=== PATIENT | female | born 1985 | race Caucasian/White ===

== ENCOUNTER 2024-10-11 00:51 | Day surgery (SDC) | payer OTHER, SELFPAY ==
[2024-10-10 11:55] VITALS: BMI 54.0
--- NOTE | 2024-10-10 12:08 | PC.NURSE ---
Report to the Outpatient Waiting Room, entrance under the green pavilion located off [facility], at time _1030_ on date _[id number]_. Planned Procedure Time: _1230_.? Time changes happen often and if your time is changed the preop area will call you the afternoon before. - You and your visitor will be asked to self-screen and do not enter if you have any COVID symptoms. Please call surgeon if you need to reschedule. - A mask is optional within the hospital at this time. Patients may have clear liquids (water, carbonated beverages, clear teas, apple juice) until 3 hours prior to surgery with a maximum of 20 ounces. - No food from midnight until time of surgery and no smoking, or chewing tobacco (or any form of nicotine). No chewing gum, candy or mints. Take only the following medications with a SIP of water on the morning of surgery: ___Levothyroxine, BC pill and Wixela. May also use nausea med, rescue inhaler and or pain pill.___ DO NOT STOP ANY OF YOUR OTHER PRESCRIPTION MEDICATIONS PRIOR TO SURGERY EXCEPT THE FOLLOWING Hold all vitamins and supplements for 3 days per anesthesiologist. Medications to discontinue per physician Date to take last dose Please no make-up, nail armenian, hairspray, perfume, deodorant, or body powder the day of surgery.? No jewelry (including any body piercings) or valuables the day of surgery, leave them at home.? Please take a shower or bath the night before, or the morning of, surgery with an antibacterial soap.? Wear comfortable, loose fitting clothing.? - Jewelry must be removed prior to entering the operating room.? Rings and piercings that are not removed may be cut off. - The hospital will not accept responsibility for valuables.? - Please leave all valuables, including medications, at home the day of surgery. If you are going home after surgery, a licensed miniature train driver must drive you home.? - NO public transportation without another adult if you receive anesthesia. - We recommend that an adult stay with you for 24 hours following discharge. - We also recommend that you do not drive, make important decision, drink alcoholic beverages, or take any drugs that were not prescribed by your health care provider for at least 24 hours after your discharge time. Follow any additional instructions given to you from your surgeon. Telephone instructions given to __Shannon__and asked if any additional questions and then verbalized understanding. Patient advised to call surgeon office or pre surgery nurse liaison [phone] if any additional questions.
[2024-10-11] VITALS (9 sets, daily range): BP systolic 118–150; BP diastolic 65–89; PULSE 61–72; RESP 11–20; TEMP 36.1–36.6; O2SAT 98–100; BMI 54.2
--- NOTE | ~2024-10-11 | XR_ITS ---
EXAMINATION: XR retrograde pyelo w/stent LT DATE: 10/11/2024 12:45 INDICATION: Left internal ureteral stent placement TECHNIQUE: Fluoroscopic images from a left internal ureteral stent placement are submitted for review . 25 seconds of fluoroscopy time. 5 fluoroscopic images FINDINGS: There is a left double-J internal ureteral stent projecting in expected position, with proximal [place] loop at the level of the renal pelvis. The distal coil of the stent is not visualized. IMPRESSION: 1. Left internal ureteral stent placement. Please refer to real-time procedural findings for detail s. Reviewed, dictated and finalized at location B. [facility] SLINGER IMPRESSION: 1. Left internal ureteral stent placement. Please refer to real-time procedur al findings for details.
--- NOTE | ~2024-10-11 | XR_ITS ---
EXAMINATION: XR abdomen/kub 1V DATE: 10/11/2024 10:23 INDICATION: Left ureteral stone. TECHNIQUE: A supine view of the abdomen on 2 radiographs was obtained. COMPARISON: None. FINDINGS: There are no dilated loops of bowel. There is a 6 x 3 mm stone in proximal left ureter. IMPRESSION: 1. 6 x 3 mm stone in proximal left ureter. Reviewed, dictated and finalized at location A. [employer] COORDINATOR
--- OUTSIDE RECORDS SUMMARY | 2024-10-11 00:54 | XMS_ITS | Encounter Summary ---
Author Organization [facility] Address [address] [place] [address] Care Team Providers Care Hide Buffer Name Role Phone Bhakti Weldon Primary Care Provider [phone] Yomaira VegaP- Primary Care Provider + Lucy Phillips-C Primary Care Provider [phone] Encounter Details Date Type Department Care Team (Latest Contact Info) Description 02/10/2022 Prescient Medical Message Enc [facility] Medical Group Multispecialty Care - [facility] [address] [facility], [address] [place] [address] Melissa Escalante APRN [address] [facility] [address] [place], [place] [phone] Referral Request Social History Tobacco Use Types Packs/Day Years Used Date Smoking Tobacco: Never Smokeless Tobacco: Never Alcohol Use Standard Drinks/Week Comments Yes 0 (1 standard drink = 0.6 oz pur e alcohol) socially AUDIT-C Answer Date Recorded Frequency of Alcohol Consumption Never 03/16/2019 Average Number of Drinks Not on file 019 Frequency of Binge Drinking Not on file 02/22 PHQ-2 Answer Date Recorded PHQ-2 Score - If the patient scores above 3, please move on to questions 3-9 0 05/01/2021 Comments No Sex and Gender Information Value Date Recorded Sex Assigned at Female 05/04/2019 4:40 PM CDT Legal Sex Female 9:06 PM CDT Gender Identity Female 05/04/2019 4:40 PM CDT Sexual Orientation Straight 05/04/2019 4: 40 PM CDT Travel History Travel Start Travel End [place] 10/02/2024 10/10/2024 COVID-19 Exposure Response Date Recorded In the last 10 days, have yo u been in contact with someone who was confirmed or suspected to have Coronavirus/COVID-19? No / Unsure 01/23/2022 3:18 PM CDT documented as of this encounter Plan of Treatment Upcoming Encounters Date Type Department Care Team (Late st Contact Info) Description 11/22/2024 7:40 AM CDT Office Visit [facility] Medical Group Family & Internal Medicine [facility] [address] [place] [address] [place] [address] [place], [place] [phone] 09/01/2025 9:15 AM GUEST SERVICES DIRECTOR [facility] [address] [place] [address] Prasad Ambrosio MD [address] [address] documented as of this encounter Visit Diagnoses Not on filedocumented in this encounter Additional Health Concerns Assessment Noted Time PHQ-9 Depression Total Score: 0 05/01/20 21 2:49 PM CDT documented as of this encounter Care Teams Hide Buffer Relationship Specialty Start Date End Date Bhakti Weldon PA PCP - General PHYSICIAN COMMERCIAL TECHNICIAN 01/22/19 11/10/22 Yomaira Vega FNP-BC PCP - General Nurse Practitioner Family 11/11/22 9/03/15 Lucy Phillips PA-C [address] [place] [address] PCP - General PHYSICIAN COMMERCIAL TECHNICIAN 05/21/23 documented as of this encounter
--- OUTSIDE RECORDS SUMMARY | 2024-10-11 00:54 | XMS_ITS | Encounter Summary ---
Author Organization [facility] Address [address] [place] [address] Care Team Providers Care Security Guard Name Role Phone Bhakti Weldon Primary Care Provider [phone] Yomaira VegaP- Primary Care Provider + Lucy Phillips PA-C Primary Care Provider [phone] Encounter Details Date Type Department Care Team (Late st Contact Info) Description 06/16/2022 Kodable Message [facility] [address] [place] [phone] Coretta Vargas NP Ekg results Social History Tobacco Use Types Packs/Day Years Used Date Smoking Tobacco: Never Smokeless Tobacco: Never Comments:not a smoker Alcohol Use Standard Drinks/Week Comments Yes 0 (1 standard drink = 0.6 oz pur e alcohol) socially AUDIT-C Answer Date Recorded Frequency of Alcohol Consumption Never 03/16/2019 Average Number of Drinks Not on file 019 Frequency of Binge Drinking Not on file 02/22 PHQ-2 Answer Date Recorded PHQ-2 Score - If the patient scores above 3, please move on to questions 3-9 0 03/19/2022 Comments No Sex and Gender Information Value Date Recorded Sex Assigned at Female 05/04/2019 4:40 PM CDT Legal Sex Female 9:06 PM CDT Gender Identity Female 05/04/2019 4:40 PM CDT Sexual Orientation Straight 05/04/2019 4 :40 PM CDT Travel History Travel Start Travel End [place] 10/02/2024 10/10/2024 COVID-19 Exposure Response Date Recorded In the last 10 days, have yo u been in contact with someone who was confirmed or suspected to have Coronavirus/COVID-19? No / Unsure 06/17/2022 9:44 AM CDT documented as of this encounter Plan of Treatment Upcoming Encounters Date Type Department Care Team (Late st Contact Info) Description 11/22/2024 7:40 AM CDT Office Visit [facility] Medical Group Family & Internal Medicine - [place] [address] [place] [address] [place] [address] [place], [place] [phone] 09/01/2025 9:15 AM CORK GRINDER [facility] [address] [place] [address] Prasad Ambrosio MD [address] [address] documented as of this encounter Visit Diagnoses Not on filedocumented in this encounter Additional Health Concerns Assessment Noted Time PHQ-9 Depression Total Score: 0 05/01/20 21 2:49 PM CDT documented as of this encounter Care Teams Security Guard Relationship Specialty Start Date End Date Bhakti Weldon PA PCP - General PHYSICIAN THERMOMETER PRODUCTION WORKER 01/22/19 11/10/22 Yomaira Vega FNP-BC PCP - General Nurse Practitioner Family 11/11/22 9/03/15 Lucy Phillips PA-C [address] [address] PCP - General PHYSICIAN THERMOMETER PRODUCTION WORKER 05/21/23 documented as of this encounter
--- OUTSIDE RECORDS SUMMARY | 2024-10-11 00:54 | XMS_ITS | Encounter Summary ---
Author Organization [facility] Address [address] [place] [address] Care Team Providers Care Network Project Manager Name Role Phone Bhakti Weldon Primary Care Provider [phone] Yomaira Vega- Primary Care Provider + Lucy Phillips-C Primary Care Provider [phone] Encounter Details Date Type Department Care Team (Late st Contact Info) Description 08/08/2022 Cureeo Message Enc [facility] Medical Group Orthopedic & Sports Medicine - [place] [address] [place], [facility] Provider apt Social History Tobacco Use Types Packs/Day Years [...] on file 02/22 PHQ-2 Answer Date Recorded Patient Health Questionnaire-2 Score 0 08/11/2022 Comments No Sex and Gender Information Value Date Recorded Sex Assigned at Female 05/04/2019 4:40 PM CDT Legal Sex Female 9:06 PM CDT Gender Identity Female 05/04/2019 4:40 PM CDT Sexual Orientation Straight 05/04/2019 4: 40 PM CDT Travel History Travel Start Travel End [place] 10/02/2024 10/10/2024 COVID-19 Exposure Response Date Recorded In the last 10 days, have yo u been in contact with someone who was confirmed or suspected to have Coronavirus/COVID-19? No / Unsure 08/11/2022 1:43 PM POLLUTION CONTROL ENGINEER documented as of this encounter Plan of Treatment Upcoming Encounters Date Type Department Care Team (Late st Contact Info) Description 11/22/2024 7:40 AM CDT Office Visit [facility] Medical Group Family & Internal Medicine [facility] [address] [place] [address] [place] [address] [place], [place] [phone] 09/01/2025 9:15 AM POLLUTION CONTROL ENGINEER [facility] [address] [place] [address] Prasad Ambrosio MD [address] [phone] documented as of this encounter Visit Diagnoses Not on filedocumented in this encounter Additional Health Concerns Assessment Noted Time PHQ-9 Depression Total Score: 0 05/01/20 21 2:49 PM CDT documented as of this encounter Care Teams Network Project Manager Relationship Specialty Start Date End Date Bhakti Weldon PA PCP - General PHYSICIAN ORDER TAKERS SUPERVISOR 01/22/19 11/10/22 Yomaira Vega FNP-BC PCP - General Nurse Practitioner Family 11/11/22 9/2 03/15 Lucy Phillips PA-C [address] [facility] [address] [place] [address] PCP - General PHYSICIAN ORDER TAKERS SUPERVISOR 05/21/23 documented as of this encounter
--- OUTSIDE RECORDS SUMMARY | 2024-10-11 00:54 | XMS_ITS | Encounter Summary ---
Author Organization [facility] Address [address] [place] [address] Care Team Providers Care End User Support Specialist Name Role Phone Bhakti Weldon Primary Care Provider [phone] Yomaira VegaP- Primary Care Provider + Lucy Phillips-C Primary Care Provider [phone] Encounter Details Date Type Department Care Team (Late st Contact Info) Description 07/09/2022 MyChart Message Enc [facility] Medical Group Diabetes and Endocrinology - [place] [address] [place] [address] Sachin Cat MD Reschedule Social History Tobacco Use Types Packs/Day Years [...] CDT Travel History Travel Start Travel End [place] 10/02/2024 10/10/2024 COVID-19 Exposure Response Date Recorded In the last 10 days, have yo u been in contact with someone who was confirmed or suspected to have Coronavirus/COVID-19? No / Unsure 06/17/2022 9:44 AM CDT documented as of this encounter Plan of Treatment Upcoming Encounters Date Type Department Care Team (Late st Contact Info) Description 11/22/2024 7:40 AM CDT Office Visit [facility] Medical Group Family & Internal Medicine [facility] [address] [place] [address] [place] [address] [place], [place] [phone] 09/01/2025 9:15 AM CONSUMER ELECTRONICS MERCHANDISER [facility] [address] [place] [address] Prasad Ambrosio MD [address] [address] documented as of this encounter Visit Diagnoses Not on filedocumented in this encounter Additional Health Concerns Assessment Noted Time PHQ-9 Depression Total Score: 0 05/01/20 21 2:49 PM CDT documented as of this encounter Care Teams End User Support Specialist Relationship Specialty Start Date End Date Bhakti Weldon PA PCP - General PHYSICIAN DIGITAL SOLUTION ARCHITECT 01/22/19 11/10/22 Yomaira Vega FNP-BC PCP - General Nurse Practitioner Family 11/11/22 903/15 Lucy Phillisp PA-C [address] [address] PCP - General PHYSICIAN DIGITAL SOLUTION ARCHITECT 05/21/23 documented as of this encounter
--- OUTSIDE RECORDS SUMMARY | 2024-10-11 00:54 | XMS_ITS | Encounter Summary ---
Author Organization [facility] Address [address] [place] [address] Care Team Providers Care Banquet Bartender Name Role Phone Bhakti Weldon Primary Care Provider [phone] Yomaira Vega- Primary Care Provider + Lucy Phillips-C Primary Care Provider [phone] Encounter Details Date Type Department Care Team (Late st Contact Info) Description 02/28/2022 MyChart Message Enc [facility] Medical Group Multispecialty Care - [facility] [address] [facility], [address] [place] [phone] Melissa Escalante APRN [address] [facility] [address] [place], [place] [phone] MRI Results Social History Tobacco Use Types Packs/Day Years [...] Recorded In the last 10 days, have clemencia ferreira been in contact with someone who was confirmed or suspected to have Coronavirus/COVID-19? Yes 03/03/2022 3:46 PM CDT documented as of this encounter Progress Notes * Mylene Vicente MA - 03/31/2022 7:58 AM CDT Good morning Elisa, this was Melissa's findings on your MRI : Elisa's lumbar MRI was essentiallynormal. There was no significant arthritis or degeneration on her spine. There was no concerning nerve impingement. She does have what we call epidural lipomatosis (fat invade the epidural space) at L5-S1 but unclear how much mass effect it truly causes. She can always try an JONATHAN with PM to see if it would help but theres not much that can be done about it besides weight loss. * Melissa Escalante APRN - 03/28/2022 3:57 PM CDT Elisa's lumbar MRI was essentially normal. There was no significant arthritis or degeneration on her spine. There was no concerning nerve impingement. She does have what we call epidural lipomatosis (fat invade the epidural space) at L5-S1 but unclear how much mass effect it truly causes. She can always try an JONATHAN with PM to see if it would help but theres not much that can be done about it besides weight loss. * Mylene Vicente MA - 03/27/2022 11:26 AM CDT Melissa please advise. * Mylene Vicente MA - 02/28/2022 2:42 PM CDT Melissa do you want me to make a follow up appt for her or do you just want me to give her findings over the phone? documented in this encounter Plan of Treatment Upcoming Encounters Date Type Department Care Team (Late st Contact Info) Description 11/22/2024 7:40 AM CDT Office Visit [facility] Medical Group Family & Internal Medicine [address] [address] Gume Bloom PA [address] [place] [phone] 09/01/2025 9:15 AM BRAILLE OPERATOR [facility] [phone] Prasad Ambrosio MD [address] [address] documented as of this encounter Visit Diagnoses Not on filedocumented in this encounter Additional Health Concerns Assessment Noted Time PHQ-9 Depression Total Score: 0 05/01/20 21 2:49 PM CDT documented as of this encounter Care Teams Banquet Bartender Relationship Specialty Start Date End Date Bhakti Weldon PA PCP - General PHYSICIAN TOY CONSULTANT 01/22/19 11/10/22 Yomaira Vega FNP- PCP - General Nurse Practitioner Family 11/11/22 903/15 Lucy Phillips PA-C [address] [place] [address] PCP - General PHYSICIAN TOY CONSULTANT 05/21/23 documented as of this encounter
--- OUTSIDE RECORDS SUMMARY | 2024-10-11 00:55 | XMS_ITS | Encounter Summary ---
Author Organization [facility] Address [address] [place] [address] Care Team Providers Care Counselor Supervisor Name Role Phone Lucy Phillips PA-C Primary Care Provider [phone] Encounter Details Date Type Department Care Team (Late st Contact Info) Description 12/01/2023 MiFit Message Enc [facility] Medical Group Multispecialty Care - [facility] [address] [facility], [address] [place] [address] Temo Saldaña MD [address] [place], [place] [phone] [facility] er follow up Social History Tobacco Use Types Packs/Day Years Used Date Smoking Tobacco: Never Smokeless Tobacco: Never Comments:not a smoker Alcohol Use Standard Drinks/Week Comments Yes 0 (1 standard drink = 0.6 oz pur e alcohol) socially, not often AUDIT-C Answer Date Recorded Frequency of Alcohol Consumption Never 03/16/2019 Average Number of Drinks Not on file 019 Frequency of Binge Drinking Not on file 02/22 PHQ-2 Answer Date Recorded Patient Health Questionnaire-2 Score 3 10/06/2023 Comments No Sex and Gender Information Value Date Recorded Sex Assigned at Female 05/04/2019 4:40 PM CDT Legal Sex Female 9:06 PM CDT Gender Identity Female 05/04/2019 4:40 PM CDT Sexual Orientation Straight 05/04/2019 4: 40 PM CDT Travel History Travel Start Travel End [facility] [place] 10/02/2024 10/10/2024 documented as of this encounter Functional Status * RETIRED Are you deaf or do you have serious difficulty hearing Answer Date of Assessment Author Status No 10/01/2022 1:55 PM MACHINE STAKER Activ e * RETIRED Are you blind or do you have serious difficulty seeing, even when wearing glasses? Answer Date of Assessment Author Status No 10/01/2022 1:55 PM MACHINE STAKER Activ e * Do you have serious difficulty walking or climbing stairs? Answer Date of Assessment Author Status No 10/01/2022 1:55 PM Willa Colbert RN Active * Do you have difficulty dressing or bathing? Answer Date of Assessment Author Status No 10/01/2022 1:55 PM Willa Colbert RN Active * Because of a physical, mental, or emotional condition, do you have difficulty doing errands alone such as visiting a doctor's office or shopping? Answer Date of Assessment Author Status No 10/01/2022 1:55 PM Willa Colbert RN Active documented as of this encounter Mental Status * Because of a physical, mental, or emotional condition, do you have serious difficulty concentrating, remembering, or making decisions? Answer Entry Date Author Status No 10/01/2022 1:55 PM Willa Colbert RN Active documented in this encounter Progress Notes * Mylene Vicente MA - 12/01/2023 12:47 PM CDT Forwarding to AA documented in this encounter Plan of Treatment Upcoming Encounters Date Type Department Care Team (Late st Contact Info) Description 11/22/2024 7:40 AM CDT Office Visit [facility] Medical Group Family & Internal Medicine [address] [address] Gume Bloom PA [address] [place] [address] 09/01/2025 9:15 AM MACHINE STAKER Office Visit [facility] [address] [place] [address] Prasad Ambrosio MD [facility] [address] [place] [address] documented as of this encounter Visit Diagnoses Not on filedocumented in this encounter Additional Health Concerns Assessment Noted Time PHQ-9 Depression Total Score: 12 024 10:38 AM MACHINE STAKER documented as of this encounter Care Teams Counselor Supervisor Relationship Specialty Start Date End Date Lucy Phillips PA-C [address] [facility] [address] [place] [address] PCP - General PHYSICIAN ACCOUNT EXECUTIVE TRAINEE 05/21/23 documented as of this encounter
--- OUTSIDE RECORDS SUMMARY | 2024-10-11 00:55 | XMS_ITS | Clinical Summary ---
Author Organization [facility] Address [address] [place] [address] Care Team Providers Care Mail Agent Name Role Phone Lucy Phillips Primary Care Provider [phone] Allergies Active Allergy Reactions Criticality Noted Date Comments Adhesive Itching,Rash,Redness Medium 05/15/2023 Bee Pollen Other (See comments),Rhinitis Low 09/19/2022 Cat Dander Wheezing,Sneezing Medium 05/14/2018 Itchy watery eyes Cat Hair Standardized Allergenic Extract Other (See comments),Sneezing Medium 05/14/2018 Itchy watery eyes Dog Dander Other (See comments),Sneezing,W heezing Medium 05/14/2018 Itchy watery eyes Grass Pollen Other (See comments) Low 09/19/2022 Mite Extract Itching Medium 07/21/2022 Itching eyes and body Mold Itching,Sneezing,Whe ezing,Other (See comments) Medium 05/14/2018 Other Itching,Sneezing,Whe ezing,Other (See comments),Eye irritation Medium 05/14/2018 Dust and Exhaust fumes Get injection for allgerys Sometimes breaks out in hives Tapentadol Itching,Rash Medium 05/15/2023 Unclassified Drug Itching,Other (See comments),Sneezing Medium 05/14/2018 Dust and Exhaust fumes Medications montelukast (SINGULAIR) 10 mg tabletIndications :Allergic Rhinitis,Maintena nce Therapy for Asthma Take 10 mg by mouth nightly. Active fluticasone (FLONASE) 50 mcg/actuation nasal sprayIndications: Allergic Rhinitis Administer 2 sprays into each nostril every morning. Active drospirenone-ethi nyl estradiol (LEO,GIANVI) 3-0.02 mg per tabletIndications : Contraception Take 1 tablet by mouth nightly. Active albuterol HFA (PROAIR HFA) 90 mcg/actuation inhaler TAKE 2 PUFFS EVERY 6 to 8 HRS NEEDED 6 Active cetirizine (ZyrTEC) 10 mg capsule 6 Active calcium citrate 250 mg calcium tablet tablet 3 Active cyclobenzaprine (FLEXERIL) 5 mg tablet Take 1 tablet (5 mg total) by mouth 3 Active docusate sodium (Stool Softener) 100 mg capsule 3 Active multivit-min/iron /folic acid/K (BARIATRIC MULTIVITAMINS ORAL) 3 Active minocycline (MINOCIN,DYNACIN) 100 mg capsule every 12 hours 3 Active levothyroxine (SYNTHROID) 175 mcg tablet TAKE 1 TABLET BY MOUTH ONCE DAILY IN THE MORNING ON AN EMPTY STOMACH 4 Active fluticasone-umecl idin-vilanter (Trelegy Ellipta) 200-62.5-25 mcg inhaler daily 2 Active fluticasone propion-salmetero L (Wixela Inhub) 500-50 mcg/dose diskus inhaler USE 1 INHALATION BY MOUTH TWICE DAILY for 90 Active acetaminophen (TYLENOL) 500 mg tablet Take 1 tablet (500 mg total) by mouth every 6 (six) hours as needed for pain Active Active Problems Problem Noted Date Diagnosed Date Papillary adenocarcinoma, follicular variant Morbid obesity 10/01/2022 Inflammatory arthritis 09/24/2022 Other cervical disc degenera tion, unspecified cervical region 10/21/2021 Spinal stenosis, cervical region 10/21/2021 Radiculopathy, cervical region 10/21/2021 Carpal tunnel syndrome of right wrist 08/14/2021 Primary hypertension 08/02/2021 Overview (09/11/2023): Last Assessment & Plan: Her blood pressure is elevated in the office today. Encouraged home blood pressure monitoring. Encouraged continued weight loss and she likely will not need pharmacologic therapy if she continues to lose weight. Chest pain in adult 07/01/2021 Overview (09/11/2023): Last Assessment & Plan: Her chest pain is likely noncardiac in nature, especially since her coronaries were normal on her CTA. Recommended continued monitoring and evaluation for gastrointestinal etiologies as she is doing. Palpitations 07/01/2021 Overview (09/11/2023): Last Assessment & Plan: On her Holter monitor there was no evidence of arrhythmia. Provided her with reassurance. 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 She was educated on lifestyle modifications including diet and exercise. Snoring 07/27/2015 Immunizations Immunization Administration Dates Next Due DTP 03/06/1992, 9,03/25/1988,08/22,1987 Hep B, Adolescent or Pediatric 01/02/1997,1995,07/08/1996 Influenza, Quadrivalent, Louise l Culture-based MDCK, Antibiotic Free, Intramuscular 07/24/2020,07/26/2019 Influenza, Quadrivalent, Spl it, Intramuscular 06/25/2023,06/12/2021 Influenza, Quadrivalent, Spl it, Preservative Free, Intramuscular 06/09/2020 Influenza, Unspecified 06/25/2023,2019,06/09/2020,07/26 MMR 03/06/1992,07/25/1988 OPV 03/06/1992, 9,1987,05/25 OPV, Unspecified 03/06/1992, 9,1987,05/25 Td, adsorbed 12/14/2002 Tdap 09/04/2017 Surgical History Surgery Date Site/Laterality Comments LAPAROSCOPIC GASTRIC BANDING THYROIDECTOMY KNEE SURGERY CARPAL TUNNEL RELEASE Right Medical History Medical History Date Comments Asthma GERD (gastroesophageal reflux disease) Anemia Anxiety Cancer (CMS/HCC) (HCC) Cervical disc disease Cervical stenosis (uterine cervix) Chest pain Gastric reflux Depression Hypothyroidism Liver disease Disc disorder of lumbar region Rheumatoid arthritis (HCC) Sinusitis PCOS (polycystic ovarian syndrome) Constipation Family History Medical History Relation Name Comments Asthma Brother Family history of asthma - (Added by TW Conv) Asthma Father Family history of asthma - (Added by TW Conv) Cancer Father Diabetes Father Heart disease Father Hypertension Father Heart disease Maternal Grandfather Hypertension Maternal Grandfather Heart disease Maternal Grandmother Hypertension Maternal Grandmother Early Mother Heart disease Mother Hypertension Mother Stroke Mother Heart disease Paternal Grandmother Hypertension Paternal Grandmother Relation Name Status Comments Brother Father Maternal Grandfather Maternal Grandmother Mother Paternal Grandmother Sister Social History Tobacco Use Types Packs/Day Years Used Date Smoking Tobacco: Never Passive Smoke Exposure: Never Smokeless Tobacco: Never Tobacco Cessation:Counseling Given: Not Answered Alcohol Use Standard Drinks/Week Comments Yes 0 (1 standard drink = 0.6 oz pur e alcohol) <1 drink a week Comments No Sex and Gender Information Value Date Recorded Sex Assigned at Not on file Legal Sex Female 10:53 AM OFFICE EMPLOYEE Gender Identity Female 09/08/2023 1:16 PM OFFICE EMPLOYEE Sexual Orientation Straight 09/08/2023 1: 16 PM OFFICE EMPLOYEE Obstetrics History Last Filed Vital Signs Vital Sign Reading Time Taken Comments Blood Pressure 132/67 09/11/2023 2:26 PM OFFICE EMPLOYEE Pulse 95 09/11/2023 2:26 PM OFFICE EMPLOYEE Temperature 36 C (96.8 F) 06/01/2018 2:00 PM CDT Respiratory Rate 13 06/01/2018 1:40 PM CDT Oxygen Saturation 100% 06/01/2018 3:30 PM CDT Inhaled Oxygen Concentration - - Weight 127 kg (280 lb) 09/11/2023 2:26 PM OFFICE EMPLOYEE Height 157.5 cm (5' 2 ) 09/11/2023 2:26 PM OFFICE EMPLOYEE Body Mass Index 51.21 09/11/2023 2:26 PM OFFICE EMPLOYEE Plan of Treatment Health Maintenance Due Date Last Done Comments Cervical Cancer Screening 1987 Depression Screening 1987 Hepatitis C Screening 1987 Varicella Vaccines (1 of 2 - 13+ 2-dose series) 2000 Regular Well Visit/Exam 18-64 2005 Pneumococcal vaccine <65 (1 of 2 - PCV) 2006 Covid-19 Vaccine ( season) 2024 08/01/2021, 09/19/2020, 08/22/2020 Influenza Vaccine (#1) 2024 , 06/25/2023, 06/12/2021, Additional history exists DTaP/Tdap/Td Vaccine (7 - Td or Tdap) 09/04/2027 09/04/2017, 12/14/2002, 03/06/1992, Additional history exists Hepatitis B Screening Completed 01/02/1997 , 08/10/1996, 07/08/1996 HPV Vaccines Aged Out No longer eligi ble based on patient's age to complete this topic Insurance Care Teams Mail Agent Relationship Specialty [place] [address] [place] [address] PCP - General Physician Wire Taper 08/31/23
--- OUTSIDE RECORDS SUMMARY | 2024-10-11 00:55 | XMS_ITS ---
Author Organization [facility] Address [address] [place] [address] Care Team Providers Care Wound Care Coordinator Name Role Phone Lucy Phillips Primary Care Provider UnavailLexi Barragan Unavailable [phone] Alberto Salmeron Unavailable [phone] REASON FOR VISIT SCIT - Traditional Schedule Allergy immunotherapy Medications Medication SIG (Take, Route, Frequency, Duration) Notes Start Date End Date Status Trelegy Ellipta 200 MCG-62.5 MCG-25 MCG/INH 1 PUFF(S) INHALED ONCE A DAY for 30 DAY(S) *Please review and pick correct strength-formula tion from [employer] options. If intended option is not shown, discontinue and re-order from Quick Search* 08/29/2021 Not-Taking CONTROL PILL 1 TABLET BY MOUTH DAILY for 30 DAYS *Please review for potential replacement for e-prescription and drug interaction check* Active DULoxetine HCl 20 MG 1 cap(s) orally 2 times a day for 30 day(s) Not-Taking Montelukast Sodium 10 MG TAKE 1 TABLET BY MOUTH ONCE DAILY for 90 Active Famotidine 40 MG 1 tablet Orally 1 hr prior to allergy shot for 30 days 04/11/2024 Active Minocycline HCl 100 MG 1 cap(s) orally every 12 hours Not-Taking Multivitamin MULTIPLE VITAMINS 1 CAP(S) ORALLY ONCE A DAY for 30 DAY(S) *Please review and pick correct strength-formula tion from [employer] options. If intended option is not shown, discontinue and re-order from Quick Search* Active Vitamin B-12 250 MCG 1 tab(s) orally once a day for 30 day(s) Not-Taking STOOL SOFTENER WITH LAXATIVE 50 MG-8.6 MG 2 TAB(S) ORALLY ONCE A DAY (AT BEDTIME) *Please review for potential replacement for e-prescription and drug interaction check* Active Levothyroxine Sodium 150 MCG 1 tab(s) orally once a day for 30 day(s) Active AEROCHAMBER MDI SPACER N/A USER WITH MDI INHALERS BY MOUTH Q4-6 HOURS PRN for 30 DAY(S) *Please review for potential replacement for e-prescription and drug interaction check* Active Actemra ACTPen 162 MG/0.9 ML DIRECTED SUBCUTANEOUSLY *Please review and pick correct strength-formula tion from [employer] options. If intended option is not shown, discontinue and re-order from Quick Search* Active Wixela Inhub 500 MCG-50 MCG USE 1 INHALATION BY MOUTH TWICE DAILY *Please review and pick correct strength-formula tion from [employer] options. If intended option is not shown, discontinue and re-order from Quick Search* Not-Taking Doxycycline Monohydrate 100 MG 1 tab(s) orally 2 times a day Active PROAIR HFA CFC FREE 90 MCG/INH 2 PUFF(S) INHALED Q4-6 HOURS, PRN AND PER THE ASTHMA ACTION PLAN for 30 DAY(S) *Please review for potential replacement for e-prescription and drug interaction check* Not-Taking PROAIR HFA CFC FREE 90 MCG/INH 2 PUFF(S) INHALED Q4-6 HOURS, PRN AND PER THE ASTHMA ACTION PLAN for 30 DAY(S) *Please review for potential replacement for e-prescription and drug interaction check* Active SIT (TRADITIONAL) variable per schedule SC per schedule for to be determined Active FLONASE 0.05 mg/inh 2 spray(s) intranasally (avoid nasal septum) once a day Active Flonase Allergy Relief 50 MCG/ACT 2 spray(s) intranasally (avoid nasal septum) once a day Active Cetirizine HCl 10 MG 1 tab(s) orally once a day Active EpiPen 2-Wally 0.3 mg as directed intramuscularly once for 30 days Active MONTELUKAST 10 mg 1 tab(s) orally once a day for 90 days Active CETIRIZINE 10 mg 1 tab(s) orally once a day Active Encounters Encounter Location Date Provider Diagnosis [facility] [address] [place] [address] 08/15/2024 Albertoedward Salmeron Allergic rhinitis due to pollen J30.1 ; Allergic rhinitis due to animal (cat) (dog) hair and dander J30.81 ; Other allergic rhinitis J30.89 and Other chronic allergic conjunctivitis H10.45 Assessments Encounter Date Diagnosis (ICD Code) Assessment Notes Treatment Notes Treatment Clinical Notes Section Notes 08/15/2024 Allergic rhinitis due to pollen (ICD-10 - J30.1) 08/15/2024 Allergic rhinitis due to animal (cat) (dog) hair and dander (ICD-10 - J30.81) 08/15/2024 Other allergic rhinitis (ICD-10 - J30.89) 08/15/2024 Other chronic allergic conjunctivitis (ICD-10 - H10.45) Plan Of Treatment Next Appt Details Follow Up: 1 Week, Reason: Provider Name:Lexi Eddy , 10/17/2024 03:00:00 PM, [address] [place], [place] [address], [address], Progress Notes * DENISATIFFANIESHYANNEElisa KITCHENDOB:1984 (39 yo F)Acc No.[id number]:08/15/2024 SCIT-Aeroallergen Patient: Elisa BARRY Provider: Aracelis Salmeron MD :1985 A ge:39 Y S ex:Female Date:08/15/2024 Address:[address] [place] [address] [facility] Pcp:Lucy Phillips Subjective: * Chief Complaints: * S CIT - Traditional Schedule Allergy immunotherapy * HPI: * Introduction: The patient is here for scheduled immunotherapy. Please see the attached specialty form regarding the specifics of the administration of these vaccines. As per our protocol, they must undergo a screening health questionnaire (medication changes, reaction(s) to last immunotherapy dose(s), current health status, ACT (if appropriate), self-injectable epinephrine on patient(?) and peak flow (if appropriate)). Also, the patient must wait in our office for 30 minutes after receiving the vaccine(s). Furthermore, every patient must have an epinephrine pen (self-injectable) with them at the time of administration--and carry if for the following 1.5 hours after they leave our office. The patient must also have taken their antihistamine the day of the injection, preferably 2 hours prior. The consent form for SCIT (subcutaneous immunotherapy) is on file. * Medical History: * Surgical History: * Hospitalization/Major Diagno stic Procedure: * Medications: T akingEpiPen 2-Wally 0.3 mg kit as directed intramuscularly once EpiPen 2-Wally 0.3 mg kit as directed intramuscularly once CETIRIZINE 10 mg tablet 1 tab(s) orally once a day MONTELUKAST 10 mg tablet 1 tab(s) orally once a day FLONASE 0.05 mg/inh spray 2 spray(s) intranasally (avoid nasal septum) once a day SIT (TRADITIONAL) variable see record per schedule SC per schedule Cetirizine HCl 10 MG Tablet 1 tab(s) orally once a day Flonase Allergy Relief 50 MCG/ACT Suspension 2 spray(s) intranasally (avoid nasal septum) once a day PROAIR HFA CFC FREE 90 MCG/INH AEROSOL WITH ADAPTER 2 PUFF(S) INHALED Q4-6 HOURS, PRN AND PER THE ASTHMA ACTION PLAN , Notes to Pharmacist: *Please review for potential replacement for e-prescription and drug interaction check*AEROCHAMBER MDI SPACER N/A N/A USER WITH MDI INHALERS BY MOUTH Q4-6 HOURS PRN , Notes to Pharmacist: *Please review for potential replacement for e-prescription and drug interaction check*Actemra ACTPen 162 MG/0.9 ML SOLUTION DIRECTED SUBCUTANEOUSLY , Notes to Pharmacist: *Please review and pick correct strength-formulation from [employer] options. If intended option is not shown, discontinue and re-order from Quick Search*Doxycycline Monohydrate 100 MG Tablet 1 tab(s) orally 2 times a day Multivitamin MULTIPLE VITAMINS CAPSULE 1 CAP(S) ORALLY ONCE A DAY , Notes to Pharmacist: *Please review and pick correct strength-formulation from [employer] options. If intended option is not shown, discontinue and re-order from Quick Search*Levothyroxine Sodium 150 MCG Tablet 1 tab(s) orally once a day STOOL SOFTENER WITH LAXATIVE 50 MG-8.6 MG TABLET 2 TAB(S) ORALLY ONCE A DAY (AT BEDTIME) , Notes to Pharmacist: *Please review for potential replacement for e-prescription and drug interaction check* CONTROL PILL 1 TABLET BY MOUTH DAILY , Notes to Pharmacist: *Please review for potential replacement for e-prescription and drug interaction check*Famotidine 40 MG Tablet 1 tablet Orally 1 hr prior to allergy shot Montelukast Sodium 10 MG Tablet TAKE 1 TABLET BY MOUTH ONCE DAILY Taking EpiPen 2-Wally 0.3 mg kit as directed intramuscularly once Taking EpiPen 2-Wally 0.3 mg kit as directed intramuscularly once Taking CETIRIZINE 10 mg tablet 1 tab(s) orally once a day Taking MONTELUKAST 10 mg tablet 1 tab(s) orally once a day Taking FLONASE 0.05 mg/inh spray 2 spray(s) intranasally (avoid nasal septum) once a day Taking SIT (TRADITIONAL) variable see record per schedule SC per schedule Taking Cetirizine HCl 10 MG Tablet 1 tab(s) orally once a day Taking Flonase Allergy Relief 50 MCG/ACT Suspension 2 spray(s) intranasally (avoid nasal septum) once a day Taking PROAIR HFA CFC FREE 90 MCG/INH AEROSOL WITH ADAPTER 2 PUFF(S) INHALED Q4-6 HOURS, PRN AND PER THE ASTHMA ACTION PLAN , Notes to Pharmacist: *Please review for potential replacement for e-prescription and drug interaction check*Taking AEROCHAMBER MDI SPACER N/A N/A USER WITH MDI INHALERS BY MOUTH Q4-6 HOURS PRN , Notes to Pharmacist: *Please review for potential replacement for e-prescription and drug interaction check*Taking Actemra ACTPen 162 MG/0.9 ML SOLUTION DIRECTED SUBCUTANEOUSLY , Notes to Pharmacist: *Please review and pick correct strength-formulation from [employer] options. If intended option is not shown, discontinue and re-order from Quick Search*Taking Doxycycline Monohydrate 100 MG Tablet 1 tab(s) orally 2 times a day Taking Multivitamin MULTIPLE VITAMINS CAPSULE 1 CAP(S) ORALLY ONCE A DAY , Notes to Pharmacist: *Please review and pick correct strength-formulation from [employer] options. If intended option is not shown, discontinue and re-order from Quick Search*Taking Levothyroxine Sodium 150 MCG Tablet 1 tab(s) orally once a day Taking STOOL SOFTENER WITH LAXATIVE 50 MG-8.6 MG TABLET 2 TAB(S) ORALLY ONCE A DAY (AT BEDTIME) , Notes to Pharmacist: *Please review for potential replacement for e-prescription and drug interaction check*Taking CONTROL PILL 1 TABLET BY MOUTH DAILY , Notes to Pharmacist: *Please review for potential replacement for e-prescription and drug interaction check*Taking Famotidine 40 MG Tablet 1 tablet Orally 1 hr prior to allergy shot Taking Montelukast Sodium 10 MG Tablet TAKE 1 TABLET BY MOUTH ONCE DAILY Not-Taking/PRNWixela Inhub 500 MCG-50 MCG POWDER USE 1 INHALATION BY MOUTH TWICE DAILY , Notes to Pharmacist: *Please review and pick correct strength-formulation from [employer] options. If intended option is not shown, discontinue and re-order from Quick Search*PROAIR HFA CFC FREE 90 MCG/INH AEROSOL WITH ADAPTER 2 PUFF(S) INHALED Q4-6 HOURS, PRN AND PER THE ASTHMA ACTION PLAN , Notes to Pharmacist: *Please review for potential replacement for e-prescription and drug interaction check*Minocycline HCl 100 MG Capsule 1 cap(s) orally every 12 hours Vitamin B-12 250 MCG Tablet 1 tab(s) orally once a day Trelegy Ellipta 200 MCG- 62.5 MCG-25 MCG/INH POWDER 1 PUFF(S) INHALED ONCE A DAY , Notes to Pharmacist: *Please review and pick correct strength-formulation from [employer] options. If intended option is not shown, discontinue and re-order from Quick Search*DULoxetine HCl 20 MG Capsule Delayed Release Particles 1 cap(s) orally 2 times a day Not-Taking/PRN Wixela Inhub 500 MCG-50 MCG POWDER USE 1 INHALATION BY MOUTH TWICE DAILY , Notes to Pharmacist: *Please review and pick correct strength-formulation from [employer] options. If intended option is not shown, discontinue and re-order from Quick Search*Not-Taking/PRN PROAIR HFA CFC FREE 90 MCG/INH AEROSOL WITH ADAPTER 2 PUFF(S) INHALED Q4-6 HOURS, PRN AND PER THE ASTHMA ACTION PLAN , Notes to Pharmacist: *Please review for potential replacement for e-prescription and drug interaction check*Not-Taking/PRN Minocycline HCl 100 MG Capsule 1 cap(s) orally every 12 hours Not-Taking/PRN Vitamin B-12 250 MCG Tablet 1 tab(s) orally once a day Not- Taking/PRN Trelegy Ellipta 200 MCG-62.5 MCG-25 MCG/INH POWDER 1 PUFF(S) INHALED ONCE A DAY , Notes to Pharmacist: *Please review and pick correct strength-formulation from [employer] options. If intended option is not shown, discontinue and re-order from Quick Search*Not-Taking/PRN DULoxetine HCl 20 MG Capsule Delayed Release Particles 1 cap(s) orally 2 times a day Objective: * Vitals: Assessment: * Assessment: 1. A llergic rhinitis due to pollen - J30.1 (Primary) 2 . A llergic rhinitis due to animal (cat) (dog) hair and dander - J30.81 3 . O ther allergic rhinitis - J30.89 4 . O ther chronic allergic conjunctivitis - H10.45 Plan: * Treatment: * Procedure Codes: 9 5117 IMMUNOTHERAPY INJECTIONS * Follow Up: 1 Week * Billing Information: * Visit Code: * Procedure Codes: 30599 IMMUNOTHERAPY INJECTIONS. * ESTATE RENTAL AGENT Sign off status: Completed true * Provider: Aracelis Salmeron MD Date: 1 10/16/2023 Generated for Adam garcia/Shin/[place] on: 0 10/11/2024 12:54 AM REAL ESTATE RENTAL AGENT History and Physical Notes * HPI (History of Present Illness) Category Sub-Category Detail Notes Category Not es *Introduction The patient is here for scheduled immunotherapy. Please see the attached specialty form regarding the specifics of the administration of these vaccines. As per our protocol, they must undergo a screening health questionnaire (medication changes, reaction(s) to last immunotherapy dose(s), current health status, ACT (if appropriate), self-injectable epinephrine on patient(?) and peak flow (if appropriate)). Also, the patient must wait in our office for 30 minutes after receiving the vaccine(s). Furthermore, every patient must have an epinephrine pen (self-injectable) with them at the time of administration--and carry if for the following 1.5 hours after they leave our office. The patient must also have taken their antihistamine the day of the injection, preferably 2 hours prior. The consent form for SCIT (subcutaneous immunotherapy) is on file.
--- OUTSIDE RECORDS SUMMARY | 2024-10-11 00:55 | XMS_ITS | Encounter Summary ---
Author Organization [facility] - [facility] Address [address] [place] [id number] Care Team Providers Care Push Button Switch Assembler Name Role Phone Lucy Phillips PA-C Primary Care Provider [phone] Encounter Details Date Type Department Care Team (Late st Contact Info) Description 10/13/2023 [employer] Message Enc [facility] Medical Group Family & Internal Medicine [facility] [id number] [place] [phone] Josr, [facility] Provider diclofenac gel Social History Tobacco Use Types Packs/Day Years [...] CDT Travel History Travel Start Travel End [facility] 10/02/2024 10/10/2024 documented as of this encounter Functional Status * RETIRED Are you deaf or do you have serious difficulty hearing Answer Date of Assessment Author Status No 10/01/2022 1:55 PM [employer] Activ e * RETIRED Are you blind or do you have serious difficulty seeing, even when wearing glasses? Answer Date of Assessment Author Status No 10/01/2022 1:55 PM BU[employer] Activ e * Do you have serious difficulty walking or climbing stairs? Answer Date of Assessment Author Status No 10/01/2022 1:55 PM BU[employer]ER [employer]RAIN Willa Quispe RN Active * Do you have difficulty [...] documented in this encounter Progress Notes * Carmen De Jesus RN - 10/16/2023 10:18 AM CST Noted. R GRAIN documented in this encounter Plan of Treatment Upcoming Encounters Date Type Department Care Team (Late st Contact Info) Description 11/22/2024 7:40 AM CDT Office Visit [facility] Medical Group Family & Internal Medicine - [place] [address] [place] [phone] [place] [address] [place], [place] [id number] 09/01/2025 9:15 AM BUYER GRAIN Office Visit [facility] [address] [place] [phone] Prasad Ambrosio MD [address] [place] [address] documented as of this encounter Visit Diagnoses Not on filedocumented in this encounter Additional Health Concerns Assessment Noted Time PHQ-9 Depression Total Score: 12 024 10:38 AM BU[employer]ER GRAIN documented as of this encounter Care Teams Push Button Switch Assembler Relationship Specialty Start Date End Date Lucy Phillips PA-C [address] [address] PCP - General PHYSICIAN MANAGER URGENT CARE 05/21/23 documented as of this encounter
--- OUTSIDE RECORDS SUMMARY | 2024-10-11 00:55 | XMS_ITS | Referral Summary ---
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 Gender Identity Female 09/08/2023 1:16 PM AUTOMOTIVE ELECTRICIAN Sexual Orientation Straight 09/08/2023 1: 16 PM AUTOMOTIVE ELECTRICIAN Last Filed Vital Signs Vital Sign Reading Time Taken Comments Blood Pressure 132/67 09/11/2023 2:26 PM AUTOMOTIVE ELECTRICIAN Pulse 95 09/11/2023 2:26 PM AUTOMOTIVE ELECTRICIAN Temperature 36 C (96.8 F) 06/01/2018 2:00 PM CDT Respiratory Rate 13 06/01/2018 1:40 PM CDT Oxygen Saturation 100% 06/01/2018 3:30 PM CDT Inhaled Oxygen Concentration - - Weight 127 kg (280 lb) 09/11/2023 2:26 PM AUTOMOTIVE ELECTRICIAN Height 157.5 cm (5' 2 ) 09/11/2023 2:26 PM AUTOMOTIVE ELECTRICIAN Body Mass Index 51.21 09/11/2023 2:26 PM AUTOMOTIVE ELECTRICIAN Plan of Treatment Not on file Insurance [id number] [place] [address] [facility]/PPO Address: [place] [address] [facility]/PPO Address: [place] [address] Care Teams Bander And Cellophaner Helper Machine Relationship Specialty [place] [address] [address] PCP - General Physician Application Consultant 08/31/23
--- OUTSIDE RECORDS SUMMARY | 2024-10-11 00:55 | XMS_ITS | Data Portability ---
Author Organization [facility] [place] Address [address] [facility] [place] [address] Assessment No assessment recorded. Plan of Treatment Reminders Order Date Submit Date Provider Last Modified By Organization Details Last Modified Time Details Appointments None recorded. Lab rf (rheumatoi d factor) + anti-ccp abs, serum 2016 CELE Not available 7 12:28:33 CLARE (antinucle ar antibodies ) screen, serum 2016 CELE Not available 7 12:28:40 erythrocyt e sedimentat ion rate by westergren method 2016 CELE Not available 7 12:28:36 dsDNA Ab, serum 2016 017 [email or web address] Not available 8 09:08:34 CMP, serum or plasma 2016 CELE Not available 7 12:28:34 lipid panel, serum 2016 CELE Not available 7 12:28:33 CBC w/ auto diff 2016 CELE Not available 7 12:28:37 TSH, serum or plasma 2016 CELE Not available 7 12:28:36 urinalysis , reflex culture 2016 [email or web address] Not available 8 09:08:25 HbA1c (hemoglobi n A1c), blood 2016 017 CELE Not available 7 12:28:35 Referral substance abuse specialist referral 2014 015 [email or web address] Halle Jha MD, [address] [place], [address], 5 13:41:17 Procedures None recorded. Surgeries None recorded. Imaging x-ray, chest, 2 view 2014 015 CELE Not available 5 15:22:40 PFT Pulmonary Function Tests - pulmonary function test with dlco 2014 015 CELE Not available 5 12:34:15 Medication Orders naproxen 500 mg tablet 2017 018 [facility], [address], [address], 8 15:59:11 Diflucan 150 mg tablet [address] [facility] [address], [id number] [place] [address], [address], 8 15:53:25 montelukas t 10 mg tablet 2017 018 [facility] 435, [address], [address], 8 11:07:18 Dulera 100 mcg-5 mcg/actuat ion HFA aerosol inhaler 2017 018 [facility] 435, [address], [address], 8 11:07:17 azithromyc in 250 mg tablet 2016 017 [facility], [address] [place], [address], 7 10:04:17 Claritin-D 24 Hour 10 mg-240 mg tablet,ext ended release 2016 017 [facility], [address] [place], [address], 7 12:00:51 Zithromax Z-Wally 250 mg tablet 2014 015 [facility], [address] [place], [address], 7 10:04:17 Patient TargetsNo targets recorded. 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 Referring Physician: Madi Handley, Cardiology, Encounter Date: 06/19/2015 Results Created Date Observation Date Name Description Value Unit Range Abnormal Flag Note LastModifiedBy Organization Detail LastModifiedTime 06/19/20 15 06/19/2015 rapid strep group A, throa t Strep negati ve Not Available In-Office Order Internal Use Only DO Not Attach Compendium DO Not Attach Compendium, Do Not Delete/merge, [id number] 06/19/2015 14:08:50 06/19/20 15 06/21/2015 franklin cortes upper respiratory culture FINAL REPORT Not Available [facility] ([facility]) [address] [facility], [place], [address], 06/22/2015 06:09:45 06/19/20 15 06/21/2015 franklin cortes result 1 COMMEN T ROUTI NE RESPI RATOR Y DRU Not Available [facility] ([facility]) [address] [facility], [place], [address], 06/22/2015 06:09:45 08/18/20 17 08/20/2017 rf (rheu matoi d facto r) + anti- ccp abs, serum rheumatoid factor <14 IU/mL <14 normal Not Available [employer] [address] [place], [address], 08/20/2017 12:28:33 08/18/20 17 08/20/2017 rf (rheu matoi d facto r) + anti- ccp abs, serum cyclic citrullinate d peptide (ccp) Ab (IgG) <16 units normal Refer ence Range Negat nury: <20 Weak Posit nury: 20-39 Moder ate Posit nury: 40-59 Stron g Posit nury: >59 Not Available [employer] [address] [place], [address], 08/20/2017 12:28:33 08/18/20 17 08/20/2017 rf (rheu matoi d facto r) + anti- ccp abs, serum interpretati on These serol ogic resul ts may be found in 10-20 % of patie nts with polya rthri tis that is clini samson and radio logic ally indis tingu ishab le from RA. Not Available [employer] [address] [address] [place], [address], 08/20/2017 12:28:33 08/18/20 17 08/20/2017 lipid panel , serum cholesterol, total 204 mg/dL <200 high Not Available [employer] [address] [address] [place], [address], 08/20/2017 12:28:33 08/18/20 17 08/20/2017 lipid panel , serum HDL cholesterol 69 mg/dL >50 normal Not Available [facility] [address] [address] [place], [address], 08/20/2017 12:28:33 08/18/20 17 08/20/2017 lipid panel , serum triglyceride s 158 mg/dL <150 high Not Available [employer] [address] [address] [place], [address], 08/20/2017 12:28:33 08/18/20 17 08/20/2017 lipid panel , serum LDL-choleste rol 107 mg/dL _(michael c) high Refer ence range : <100 Franck able range <100 mg/dL for patie nts with CHD or diabe ryan and <70 mg/dL for diabe tic patie nts with known heart disea se. LDL-C is now calcu lated using the [facility] n-Hop kins calcu stephen n, which is a valid ated novel metho d provi jorge sonia r accur acy than the Fried yunier equat ion in the estim ation of LDL-C . Tori n SS et al. JASON. 2013; 310(1 9): 2061- 2068 (http ://ed ucati on.Mangia. Kapost/f aq/FA Q164) Not Available [employer] [address] [address] [address], [place], [address], 08/20/2017 12:28:33 08/18/20 17 08/20/2017 lipid panel , serum chol/HDLC ratio 3.0 (calc ) <5.0 normal Not Available [employer] [address] [address] [place], [address], 08/20/2017 12:28:33 08/18/20 17 08/20/2017 lipid panel , serum non HDL cholesterol 135 mg/dL _(michael c) <130 high For patie nts with diabe ryan plus 1 major ASCVD risk facto r, treat ing to a non-H DL-C goal of <100 mg/dL (LDL- C of <70 mg/dL ) is consi dered a thera peindigo c optio n. Not Available [employer] [facility] [address] [place], [address], 08/20/2017 12:28:33 08/18/20 17 08/20/2017 CMP, serum or plasm a glucose 93 mg/dL 65-99 normal Fasti ng refer ence inter juan Not Available [employer] [facility] [address] [place], [address], 08/20/2017 12:28:34 08/18/20 17 08/20/2017 CMP, serum or plasm a urea nitrogen (BUN) 12 mg/dL 7-25 normal Not Available [address], [address], 08/20/2017 12:28:34 08/18/20 17 08/20/2017 CMP, serum or plasm a creatinine 0.68 mg/dL 0.50-1 .10 normal Not Available [address], [address], 08/20/2017 12:28:34 08/18/20 17 08/20/2017 CMP, serum or plasm a eGFR non-afr. iraqi 117 mL/mi n/1.7 3m2 > or = 60 normal Not Available [address], [address], 08/20/2017 12:28:34 08/18/20 17 08/20/2017 CMP, serum or plasm a eGFR 136 mL/mi n/1.7 3m2 > or = 60 normal Not Available [address], [address], 08/20/2017 12:28:34 08/18/20 17 08/20/2017 CMP, serum or plasm a BUN/creatini ne ratio NOT APPLIC ABLE (calc ) 6-22 Not Available [address], [address], 08/20/2017 12:28:34 08/18/20 17 08/20/2017 CMP, serum or plasm a sodium 138 mmol/ L 135-14 6 normal Not Available [address], [address], 08/20/2017 12:28:34 08/18/20 17 08/20/2017 CMP, serum or plasm a potassium 4.2 mmol/ L 3.5-5. 3 normal Not Available [address], [address], 08/20/2017 12:28:34 08/18/20 17 08/20/2017 CMP, serum or plasm a chloride 106 mmol/ L 98-110 normal Not Available [address], [address], 08/20/2017 12:28:34 08/18/20 17 08/20/2017 CMP, serum or plasm a carbon dioxide 23 mmol/ L 20-31 normal Not Available [address], [address], 08/20/2017 12:28:34 08/18/20 17 08/20/2017 CMP, serum or plasm a calcium 9.2 mg/dL 8.6-10 .2 normal Not Available [address], [address], 08/20/2017 12:28:34 08/18/20 17 08/20/2017 CMP, serum or plasm a protein, total 6.4 g/dL 6.1-8. 1 normal Not Available [address], [address], 08/20/2017 12:28:34 08/18/20 17 08/20/2017 CMP, serum or plasm a albumin 3.8 g/dL 3.6-5. 1 normal Not Available [address], [address], 08/20/2017 12:28:34 08/18/20 17 08/20/2017 CMP, serum or plasm a globulin 2.6 g/dL_ (calc ) 1.9-3. 7 normal Not Available [address], [address], 08/20/2017 12:28:34 08/18/20 17 08/20/2017 CMP, serum or plasm a albumin/glob ulin ratio 1.5 (calc ) 1.0-2. 5 normal Not Available [address] [place], [address], 08/20/2017 12:28:34 08/18/20 17 08/20/2017 CMP, serum or plasm a bilirubin, total 0.4 mg/dL 0.2-1. 2 normal Not Available [facility] [address] [address] [place], [address], 08/20/2017 12:28:34 08/18/20 17 08/20/2017 CMP, serum or plasm a alkaline phosphatase 42 U/L 33-115 normal Not Available [facility] [address] [address] [place], [address], 08/20/2017 12:28:34 08/18/20 17 08/20/2017 CMP, serum or plasm a AST 13 U/L 10-30 normal Not Available [facility] [address] [address] [place], [address], 08/20/2017 12:28:34 08/18/20 17 08/20/2017 CMP, serum or plasm a ALT 12 U/L 6-29 normal Not Available [facility] [address] [address] [place], [address], 08/20/2017 12:28:34 08/18/20 17 08/20/2017 HbA1c (hemo globi n A1c), blood hemoglobin A1C 4.9 %_of_ total _HGB <5.7 normal For the purpo se of snehal gonzales for the prese nce of diabe ryan: <5.7% Consi stent with the absen ce of diabe ryan 5.7-6 .4% Consi stent with incre ased risk for diabe ryan (pred iabet es) > or =6.5% Consi stent with diabe ryan This assay resul t is consi stent with a decre ased risk of diabe ryan. Curre ntly, no conse nsus exist s tolu patel use of hemog lobin A1c for diagn osis of diabe ryan in child nelly. Accor ding to Ameri can Diabe ryan Assoc iatio n (ADA) guide lines , hemog lobin A1c <7.0% repre sents optim al contr ol in non-p regna nt diabe tic patie nts. Diffe rent ri cs may apply to speci fic patie nt popul ation s. Stand ards of Medic al Care in Diabe ryan(A DA). Not Available [address] [address] [place], [address], 08/20/2017 12:28:35 08/18/20 17 08/20/2017 TSH, serum or plasm a TSH 4.57 mIU/L high Refer ence Range > or = 20 Years 0.40- 4.50 Pregn obi Range s First trime ster 0.26- 2.66 Secon d trime ster 0.55- 2.73 Third trime ster 0.43- 2.91 Not Available [address] [address] [place], [address], 08/20/2017 12:28:36 08/18/20 17 08/20/2017 eryth rocyt e sedim entat ion rate by westatif rgren metho d sed rate by modified westsuzieren 25 mm/h < or = 20 high Not Available [address], [address], 08/20/2017 12:28:36 08/18/20 17 08/20/2017 CBC w/ auto diff white blood cell count 8.1 thous and/u L 3.8-10 .8 normal Not Available [address] [address] [place], [address], 08/20/2017 12:28:37 08/18/20 17 08/20/2017 CBC w/ auto diff red blood cell count 4.40 juan carlos on/uL 3.80-5 .10 normal Not Available [address] [address] [place], [address], 08/20/2017 12:28:37 08/18/20 17 08/20/2017 CBC w/ auto diff hemoglobin 13.0 g/dL 11.7-1 5.5 normal Not Available [address], [address], 08/20/2017 12:28:37 08/18/20 17 08/20/2017 CBC w/ auto diff hematocrit 38.7 % 35.0-4 5.0 normal Not Available [address], [address], 08/20/2017 12:28:37 08/18/20 17 08/20/2017 CBC w/ auto diff MCV 88.0 fL 80.0-1 00.0 normal Not Available [address], [address], 08/20/2017 12:28:37 08/18/20 17 08/20/2017 CBC w/ auto diff MCH 29.5 pg 27.0-3 3.0 normal Not Available [address], [address], 08/20/2017 12:28:37 08/18/20 17 08/20/2017 CBC w/ auto diff MCHC 33.6 g/dL 32.0-3 6.0 normal Not Available [address], [address], 08/20/2017 12:28:37 08/18/20 17 08/20/2017 CBC w/ auto diff RDW 12.3 % 11.0-1 5.0 normal Not Available [address], [address], 08/20/2017 12:28:37 08/18/20 17 08/20/2017 CBC w/ auto diff platelet count 275 thous and/u L 140-40 0 normal Not Available [address], [address], 08/20/2017 12:28:37 08/18/20 17 08/20/2017 CBC w/ auto diff MPV 10.2 fL 7.5-12 .5 normal Not Available [address] [place], [address], 08/20/2017 12:28:37 08/18/20 17 08/20/2017 CBC w/ auto diff absolute neutrophils 3135 cells /uL 1500-7 800 normal Not Available [address], [address], 08/20/2017 12:28:37 08/18/20 17 08/20/2017 CBC w/ auto diff absolute lymphocytes 4269 cells /uL 850-39 00 high Not Available [address], [address], 08/20/2017 12:28:37 08/18/20 17 08/20/2017 CBC w/ auto diff absolute monocytes 608 cells /uL 200-95 0 normal Not Available [address], [address], 08/20/2017 12:28:37 08/18/20 17 08/20/2017 CBC w/ auto diff absolute eosinophils 57 cells /uL 15-500 normal Not Available [address], [address], 08/20/2017 12:28:37 08/18/20 17 08/20/2017 CBC w/ auto diff absolute basophils 32 cells /uL 0-200 normal Not Available [address], [address], 08/20/2017 12:28:37 08/18/20 17 08/20/2017 CBC w/ auto diff neutrophils 38.7 % normal Not Available [address], [address], 08/20/2017 12:28:37 08/18/20 17 08/20/2017 CBC w/ auto diff lymphocytes 52.7 % normal Not Available [address], [address], 08/20/2017 12:28:37 08/18/20 17 08/20/2017 CBC w/ auto diff monocytes 7.5 % normal Not Available [address], [address], 08/20/2017 12:28:37 08/18/20 17 08/20/2017 CBC w/ auto diff eosinophils 0.7 % normal Not Available [address], [address], 08/20/2017 12:28:37 08/18/20 17 08/20/2017 CBC w/ auto diff basophils 0.4 % normal Not Available [address], [address], 08/20/2017 12:28:37 08/18/20 17 08/20/2017 urina lysis compl ete, refle x cultu re color YELLOW yellow normal Not Available [address], [address], 08/20/2017 12:28:38 08/18/20 17 08/20/2017 urina lysis compl ete, refle x cultu re appearance CLEAR clear normal Not Available [address], [address], 08/20/2017 12:28:38 08/18/20 17 08/20/2017 urina lysis compl ete, refle x cultu re specific gravity 1.019 1.001- 1.035 normal Not Available [address], [address], 08/20/2017 12:28:38 08/18/20 17 08/20/2017 urina lysis compl ete, refle x cultu re pH 5.5 5.0-8. 0 normal Not Available [address], [address], 08/20/2017 12:28:38 08/18/20 17 08/20/2017 urina lysis compl ete, refle x cultu re glucose NEGATI VE negati ve normal Not Available [facility] [address], [address], 08/20/2017 12:28:38 08/18/20 17 08/20/2017 urina lysis compl ete, refle x cultu re bilirubin NEGATI VE negati ve normal Not Available [facility] [address], [address], 08/20/2017 12:28:38 08/18/20 17 08/20/2017 urina lysis compl ete, refle x cultu re ketones NEGATI VE negati ve normal Not Available [facility] [address], [address], 08/20/2017 12:28:38 08/18/20 17 08/20/2017 urina lysis compl ete, refle x cultu re occult blood TRACE negati ve abnormal Not Available [facility] [address] [place], [address], 08/20/2017 12:28:38 08/18/20 17 08/20/2017 urina lysis compl ete, refle x cultu re protein NEGATI VE negati ve normal Not Available [facility] [address], [address], 08/20/2017 12:28:38 08/18/20 17 08/20/2017 urina lysis compl ete, refle x cultu re nitrite NEGATI VE negati ve normal Not Available [facility] [address], [address], 08/20/2017 12:28:38 08/18/20 17 08/20/2017 urina lysis compl ete, refle x cultu re leukocyte esterase 2+ negati ve abnormal Not Available [facility] [address] [place], [address], 08/20/2017 12:28:38 08/18/20 17 08/20/2017 urina lysis compl ete, refle x cultu re WBC 40-60 /hpf < or = 5 abnormal Not Available [address], [address], 08/20/2017 12:28:38 08/18/20 17 08/20/2017 urina lysis compl ete, refle x cultu re RBC 10-20 /hpf < or = 2 abnormal Not Available [address], [address], 08/20/2017 12:28:38 08/18/20 17 08/20/2017 urina lysis compl ete, refle x cultu re squamous epithelial cells 10-20 /hpf < or = 5 abnormal Not Available [address], [address], 08/20/2017 12:28:38 08/18/20 17 08/20/2017 urina lysis compl ete, refle x cultu re bacteria MANY /hpf none seen abnormal Not Available [address], [address], 08/20/2017 12:28:38 08/18/20 17 08/20/2017 urina lysis compl ete, refle x cultu re hyaline cast NONE SEEN /lpf none seen normal Not Available [address], [address], 08/20/2017 12:28:38 08/18/20 17 08/20/2017 urina lysis compl ete, refle x cultu re yeast FEW /hpf none seen abnormal Not Available [address], [address], 08/20/2017 12:28:38 08/18/20 17 08/20/2017 urina lysis compl ete, refle x cultu re comments FEW MUCOUS THREAD S Not Available [address], [address], 08/20/2017 12:28:38 08/18/20 17 08/20/2017 cultu re, urine reflexive urine culture CULTUR E INDICA VELIA - RESULT S TO FOLLOW Not Available [address] [address] [address], [place], [address], 08/20/2017 12:28:38 08/18/20 17 08/20/2017 CLARE (anti nucle ar antib odies ) scree n, ifa, serum CLARE screen, ifa NEGATI VE negati ve normal CLARE IFA is a first line scree n for detec ting the prese nce of up to appro ximat yesi 150 autoa ntibo dies in vario us autoi mmune disea ses. A negat nury CLARE IFA resul t sugge sts CLARE-a ssoci ated autoi mmune disea ses are not prese nt at this time. Visit Physi celia FAQs for inter preta tion of all antib odies in the [place], preva lence , and assoc iatio n with disea ses at http: //[facility] catio n.Que stDia gnost ics.c om/ faq/F AQ177 Not Available [address] [address] [address], [place], [address], 08/20/2017 12:28:39 08/18/20 17 08/20/2017 CLARE (anti nucle ar antib odies ) scree n, serum anachoice(R) screen NEGATI VE negati ve normal A negat nury CLARE Multi plex, with Refle x to 11 Antib kimberly [place] indic ates the absen ce of detec table antib odies to compo nent marcello ryan consi sting of doubl e stran ded DNA (dsDN A), chrom atin, ribon ucleo prote in (AESTHETICS INSTRUCTOR) , Eli /AESTHETICS INSTRUCTOR (Sm/R MANAGER FAST FOOD), Eli (Sm), SS-A, SS-B, Renetta-1, centr omere B, Scl-7 0 and ribos omal P. A negat nury resul t shoul d be inter prete d in the geronimo xt of the clini michael and labor atory findi ngs and does not rule out autoi mmune disea se marci cteri zed by other autoa ntibo dy speci ficit ies such as rheum atoid arthr itis, autoi mmune hepat itis, prima ry bilia ry cirrh osis, autoi mmune thyro iditi s, [place] on's disea se, perni cious anemi a, autoi mmune neuro pathi es, vascu litis , darlene c disea se, and bullo us disea se. Visit Physi celia FAQs for inter preta tion of all antib odies in the [place], preva lence , and assoc iatio n with disea ses at http: //[facility] catio n.Que stDia gnost ics.c om/ faq/F AQ177 Not Available [employer] [address] [address] [place], [address], 08/20/2017 12:28:39 08/18/20 17 08/20/2017 cultu re, urine culture, urine, routine CULTU RE, URINE , ROUTI NE MICRO NUMBE R: [id number] TEST STATU S: FINAL SPECI MEN SOURC E: URINE SPECI MEN QUALI TY: ADEQU ATE RESUL T: Three or more organ isms prese nt, each great er than 10,00 0 cu/mL . December repre sent parul l dru conta minat ion from exter nal genit fredrick. No furth er testi ng is requi red. Not Available [employer] [address] [address] [address] , [place], [address], 08/20/2017 12:28:40 10/27/19 18 10/28/2017 TSH, serum or plasm a TSH w/reflex to FT4 2.83 mIU/L normal Refer ence Range > or = 20 Years 0.40- 4.50 Pregn obi Range s First trime ster 0.26- 2.66 Secon d trime ster 0.55- 2.73 Third trime ster 0.43- 2.91 Not Available [employer] [address] [address] [place], [address], 10/28/2017 03:09:21 10/27/19 18 10/28/2017 T3, total , serum T3, total 137 NG/dL 76-181 normal Not Available [facility] [address] [place], [address], 10/28/2017 03:09:21 07/06/20 15 07/06/2015 xr chest 2 view KIMMIE SCHERER 9866 ADMIT/ SERVIC E DATE: ACCT: [id number] DISCHA RGE DATE: : 1984 SEX: F ORD SITE: [facility] PT TYPE: REG CLI MADDIE CARABALLO MD: MAUREEN TSE MD STUDY DATE REPORT # ORDER # EXT ORDER ID [id number] [id number] PROC CODE: [id number] PROCED URE DESCRI PTION: XR CHEST 2 VIEW I MPRESS ION: THERE IS NO ACUTE PROCES S WITHIN THE CHEST. EXAMIN ATION: CHEST X-RAY 2 VIEW ACCESS ION: [id number] EXAM DATE/T MEÑO: 2014 10:35 AM CLINIC AL HISTOR Y: COUGH COMPAR FRANCESCO: NONE TECHNI QUE: PA AND LATERA L VIEWS OF THE CHEST WERE OBTAIN ED. FINDIN GS: HEART SIZE AND PULMON REYNA VASCUL ATURE ARE WITHIN NORMAL LIMITS . THERE ARE NO PULMON REYNA CONSOL IDATIO NS. THERE ARE NO PLEURA L EFFUSI ONS. ELECTR ONICAL LY SIGNED BY: BEAU ARELLANO 5 11:01 AM [facility] [address] [facility], [place], [address], 08/01/2015 04:08:52 07/06/20 15 07/06/2015 x-ray , chest , 2 view No observ ation record ed. [email or web address] [facility], [place], [address], 07/10/2015 14:23:44 07/14/20 15 07/06/2015 PFT Pulmo nary Funct ion Tests No observ ation record ed. [email or web address] [facility], [place], [address], 07/17/2015 12:33:56 Result Notes None recorded. Problems Name Problem SNOMED Code Status Onset Date Resolution Date Notes Provider Name and Address Organization Details Recorded Time Knee pain Active Madi Handley MD Attn: Accounting ,[address] [place], [address] , [place] - [facility] 5 19:04:25 Obesity 110634229 Active Madi Handley MD Attn: Accounting ,[address] [place], [address] , [place] [facility] 5 14:33:40 Chronic cough 87771285 Active Madi Handley MD Attn: Accounting ,[address] [place], [address] , [place] [facility] 5 14:33:40 Pain in throat 447795914 Active Madi Handley MD Attn: Accounting ,[address] [place], [address] , [place] [facility] 5 14:33:40 Problem Notes None recorded. Procedures Surgical History None recorded. Imaging Results Imaging Date Name Status LastModified by Organiz atunc health Details LastModified Time 07/06/2015 xr chest 2 view completed [facility], [place], [address], 08/01/2015 04:08:52 07/06/2015 x-ray, chest, [address], [place], [address], 07/10/2015 14:23:44 07/06/2015 PFT Pulmonary Function Tests completed [id number] [place] [address], [place], [address], 07/17/2015 12:33:56 Procedure Notes None recorded. Medical Equipment None Reported. Allergies No known drug allergies Medications Name Sig Start Date Stop Date Status Note LastModified by Organization Details LastModified Time Qvar 80 mcg/actuati on Metered Aerosol oral inhaler Inhale 2 puffs twice a day by inhalatio n route. 08/07 completed Not Available Not Available Not Available prednisone 10 mg tablet 09/30 completed Not Available Not Available Not Available azithromyci n 250 mg tablet TAKE 2 TABLETS (500 MG) BY ORAL ROUTE ONCE DAILY FOR 1 DAY THEN 1 TABLET (250 MG) BY ORAL ROUTE ONCE DAILY FOR 4 DAYS 08/07 completed Not Available Not Available Not Available fluconazole 150 mg tablet Take one time dose 11/02 completed Not Available Not Available Not Available penicillin V potassium 500 mg tablet 09/30 completed Not Available Not Available Not Available tramadol 50 mg tablet 09/30 completed Not Available Not Available Not Available Claritin-D 24 Hour 10 mg-240 mg tablet,exte nded release Take 1 tablet every day by oral route for 7 days. 08/07 completed Not Available Not Available Not Available cephalexin 500 mg capsule 09/30 completed Not Available Not Available Not Available montelukast 10 mg tablet Take one a day active Not Available Not Available No t Available fluticasone propionate 50 mcg/actuati on nasal spray,suspe nsion active Not Available Not Available Not Available naproxen 500 mg tablet Take 1 tablet twice a day by oral route as needed. 2017 active Not Available Not Available Not Avai lable Ventolin HFA 90 mcg/actuati on aerosol inhaler active Not Available Not Available Not Available Flovent HFA 110 mcg/actuati on aerosol inhaler Inhale 2 puffs twice a day by inhalatio n route. 09/30 completed Not Available Not Available Not Available Flovent Diskus 250 mcg/actuati on powder for inhalation Inhale 1 puff twice a day by inhalatio n route for 30 days. 04/25 completed Not Available Not Available Not Available Dulera 100 mcg-5 mcg/actuati on HFA aerosol inhaler Take 2 puffs BID active Not Available Not Available No t Available Enskyce 0.15 mg-0.03 mg tablet active Not Available Not Available Not Available Vitals Date Recorded Body weight Heart rate Respiratory rate Systolic blood pressure Diastolic blood pressure Provider Name and Address Organization Details Last Updated DateTime 08/07/2017 163243. 62 g 70 /min 16 /min 128 mm[Hg] 68 mm[Hg] [facility] 7 12:00:39 Date Recorded Body weight Heart rate Respiratory rate Systolic blood pressure Diastolic blood pressure Provider Name and Address Organization Details Last Updated DateTime 09/04/2017 653165. 99 g 93 /min 16 /min 122 mm[Hg] 80 mm[Hg] [facility] 8 10:48:38 Date Recorded Body height Body mass index (BMI) Body weight Body temperature Oxygen saturation Oxygen saturation in Arterial blood by Pulse oximetry Heart rate Respiratory rate Systolic blood pressure Diastolic blood pressure Provider Name and Address Organization Details Last Updated DateTime 8 160.02 cm 50.3 kg/m2 201880. 23 g 98.5 [degF] 97 % 97 % 81 /min 20 /min 130 mm[Hg] 80 mm[Hg] Douglas Restrepo [facility] 8 15:43:36 Date Recorded Body height Body mass index (BMI) Body weight Respiratory rate Body temperature Heart rate Systolic blood pressure Diastolic blood pressure Provider Name and Address Organization Details Last Updated DateTime 5 160.02 cm 46.7 kg/m2 638600. 369527 g 22 /min 98 [degF] 72 /min 110 mm[Hg] 80 mm[Hg] Ale Granados [place] [facility] 5 14:06:28 Date Recorded Body weight Heart rate Respiratory rate Body temperature Oxygen saturation Oxygen saturation in Arterial blood by Pulse oximetry Systolic blood pressure Diastolic blood pressure Provider Name and Address Organization Details Last Updated DateTime 7 733730. 9 g 116 /min 20 /min 98.6 [degF] 97 % 97 % 118 mm[Hg] 64 mm[Hg] Yanira Winchester [place] [facility] 7 15:48:55 Social History Question Answer Notes LastModified by Organizat ion Details LastModified Time Tobacco Smoking Status Never Smoker Not Available [facility] 06/26/2020 03:39:31 What Is Your Level Of Alcohol Consumption? None [id number] Information not available 06/26/2020 What Was The Date Of Your Most Recent Tobacco Screening? 11/02/2017 [id number] Information not available 06/26/2020 Sex: Unknown Functional Status None recorded. Mental Status None recorded. Family History Relationship Description Onset Age of this Age Resolved Age Notes LastModified by Organization Details LastModified Time Mother Hypertensive disorder Not available 2014 14:19:16 Mother Heart disease [email or web address] Not available 2014 14:19:16 Mother Mental disorder [email or web address] Not available 2014 14:19:16 Father Heart disease [email or web address] Not available 2014 14:19:16 Father Diabetes mellitus [email or web address] Not available 2014 14:19:16 Father Hypertensive disorder [email or web address] Not available 2014 14:19:16 Father Mental disorder [email or web address] Not available 2014 14:19:16 Medical History Condition Response Depression Y Muscle, Joint, or Bone Problems Y Thyroid Problems Y Asthma Y Allergies Y Gynecological HistoryNo gynecological history recorded. Obstetrics History GPAL:G 0 P 0 0 0 0 Immunizations Vaccine Type Date Status Note Provider Nam e and Address Organization Details Recorded Time Tdap 09/04/2017 completed Not Available [facility] 09/10/2019 02:43:06 Past Encounters Encounter ID Performer Location Encounter Start Date Encounter Closed Date Diagnosis/Indication Diagnosis SNOMED-CT Code Diagnosis ICD10 Code Diagnosis Note [id number] [address] [address] 02/13/2015 13:49:53 02/13/2015 15:14:11 Knee pain 25252964 Obesity 762655662 Chronic cough 28151132 [id number] Lucy Funes [address] [address] 04/17/2015 13:52:19 04/18/2015 08:51:58 Chronic cough 29648595 Knee pain 67630312 Obesity 272003559 [id number] Madi Handley MD [address] [address] 06/19/2015 13:57:30 06/19/2015 14:35:28 Chronic cough 85943016 R05 Obesity 524594379 E66.9 Pain in throat 742496389 J02.9 [id number] Christopher Brantley MD [address] [address] 09/30/2016 15:41:29 10/16/2016 16:10:25 Acute sinusitis 48314501 J01.90 Continue flonase that she already has. [id number] Christopher Brantley MD [address] [address] 08/07/2017 11:50:51 08/10/2017 15:29:54 Allergic asthma 691988671 J45.909 On montelukas t and Dulera. Sees Retail Support Specialist in [facility]. Multiple joint pain 3567 8005 M25.50 Adult heal th examination 951838618 Z00.00 Obesity 192607434 E66.9 [id number] Yanira Winchester [address] [address] 09/04/2017 10:30:47 09/09/2017 12:10:54 Allergic asthma 526158843 J45.909 On montelukas t and Dulera. Sees Retail Support Specialist in [facility]. Multiple joint pain 3567 8005 M25.50 Adult heal th examination 720194387 Z00.00 Obesity 043346486 E66.9 Administra tion of diphtheria, pertussis, and tetanus vaccine 850243826 Z23 Candidiasis of vagina [address] imulating hormone level above reference range 166721788 R79.89 Recheck TSH AND ft4, and tt3 in 3 months. [id number] Christopher Brantley MD [address] [address] 11/02/2017 15:20:14 11/06/2017 15:39:52 Allergic asthma 517450466 J45.909 On montelukas t and Dulera. Sees Retail Support Specialist in [facility]. Multiple joint pain 3567 8005 M25.50 Autoimmune workup per labs was negative. Trial of naproxen. Obesity 717980557 E66.[address] imulating hormone level above reference range 755801340 R79.89 Normal now. Health Concerns Section Related Observation LastModified by Organization Detai ls LastModified Time None Recorded Concern Status LastModified by Organization Details LastModified Time None Recorded Advance Directives Directive None Recorded Payers Encounter Date Sequence Insurance Name Policy Number Policy Mitchell Covered Member ID Mitchell Member ID Guarantor Name 06/19/2015 1 [facility] (MEDICAID HMO) [id number] Elisa Baillargeon [id number] Elisa Baillargeon 09/30/2016 1 [facility] (MEDICAID HMO) [id number] Elisa Baillargeon [id number] Elisa Baillargeon 08/07/2017 1 [facility] (MEDICAID HMO) Elisa Baillargeon [id number] Elisa Baillargeon 09/04/2017 1 [facility] (MEDICAID HMO) Elisa Baillargeon [id number] Elisa Baillargeon 11/02/2017 1 [facility] (MEDICAID HMO) Elisa Baillargeon [id number] Elisa Baillargeon Notes Date Note Type Note Provider Name and Address Organization Details Recorded Time 06/19/2015 text/html HISTORY OF PRESE NT ILLNESS : THE PATIENT denies chest pain denies sob at rest sleeps on # 1-2 pillows denies pnd denies pedal edema denies dizziness denies syncope denies dyspnea on exertion denies palpitation denies fatigue patient has a history of chronic cough has been treated for GERD some 4 months allergic rhinitis for 4 months asthma for 2 months does not smoke no medications prior to treatment states is worse with change in weather coughs 24 /7 nonproductive occasional wheezing presently complains of sore throat fatigue jeff Handley MD Attn: Accounting,[address] [facility], [place], [address], [facility] 06/19/2015 14:33:50 09/30/2016 text/html Pt is here for a n acute visit c/o sinus pain and pressure. Her teeth are hurting. Ears are popping, and has had some chills. Has been ill for the last one week.. Nasal mucus is thick and yellow. Christopher Brantley MD Attn: Accounting[address] , [place], [address], [facility] - [facility] 09/30/2016 16:01:57 08/07/2017 text/html Pt is here for follow up. She is concerned about Rheumatoid arthritis. She has joint aches in hands and legs. She gets those off and on through out the day when she clasps. Joints get stiff too. She works at a Chiropractic office. Christopher Brantley MD Attn: Accounting[address] , [place], [address], [facility] - [facility] 08/07/2017 12:28:58 09/04/2017 text/html Pt is here for follow up. She had lab work checked recently that was reviewed with her today. She is doing ok. Yanira benz, [place] - [facility] 09/04/2017 11:22:00 11/02/2017 text/html Pt is here for follow up on labs. Those were reviewed with her today. Christopher Brantley MD Attn: Accounting,[address] [facility], [place], [address], [facility] 11/02/2017 16:01:23 OBGyn Episode No OBEpisode recorded.
--- OUTSIDE RECORDS SUMMARY | 2024-10-11 00:55 | XMS_ITS | Encounter Summary ---
Author Organization [facility] Address [address] [place] [address] Care Team Providers Care Room Service Food Server Name Role Phone Lucy Phillips PA-C Primary Care Provider [phone] Encounter Details Date Type Department Care Team (Late st Contact Info) Description 07/05/2024 [employer] Message Enc [facility] Family & Internal Medicine - [place] [address] [place] [address] Lucy Phillips PA-C [address] [place] [address] UTI Social History Tobacco Use Types Packs/Day Years [...] Answer Date Recorded Patient Health Questionnaire-2 Score 5 04/05/2024 Comments No Sex and Gender Information Value Date Recorded Sex Assigned at Female 05/04/2019 4:40 PM CDT Legal Sex Female 9:06 PM CDT Gender Identity Female 05/04/2019 4:40 PM CDT Sexual Orientation Straight 05/04/2019 4: 40 PM CDT Travel History Travel Start Travel End [place] 10/02/2024 10/10/2024 documented as of this encounter Functional Status * RETIRED Are you deaf or do you have serious difficulty hearing Answer Date of Assessment Author Status No 10/01/2022 1:55 PM WATERPROOF MATERIAL FOLDER Activ e * RETIRED Are you blind or do you have serious difficulty seeing, even when wearing glasses? Answer Date of Assessment Author Status No 10/01/2022 1:55 PM WATERPROOF MATERIAL FOLDER Activ e * Do you have serious difficulty walking or climbing stairs? Answer Date of Assessment Author Status No 10/01/2022 1:55 PM WATERPROOF MATERIAL FOLDER Willa Quispe RN Active * Do you have difficulty dressing or bathing? Answer Date of Assessment Author Status No 10/01/2022 1:55 PM WATERPROOF MATERIAL FOLDER Willa Quispe RN Active * Because of a physical, mental, or emotional condition, do you have difficulty doing errands alone such as visiting a doctor's office or shopping? Answer Date of Assessment Author Status No 10/01/2022 1:55 PM WATERPROOF MATERIAL FOLDER Willa Quispe RN Active documented as of this encounter Mental Status * Because of a physical, mental, or emotional condition, do you have serious difficulty concentrating, remembering, or making decisions? Answer Entry Date Author Status No 10/01/2022 1:55 PM Willa Colbert RN Active documented in this encounter Progress Notes * Andres Reyes MA - 07/05/2024 8:20 AM CST Called and spoke with pt and scheduled appt for today RPROOF MATERIAL FOLDER documented in this encounter Plan of Treatment Upcoming Encounters Date Type Department Care Team (Late st Contact Info) Description 11/22/2024 7:40 AM CDT Office Visit [facility] Medical [facility] Family & Internal Medicine [facility] [address] [place] [address] [place] [address] [place] [address] 09/01/2025 9:15 AM WATERPROOF MATERIAL FOLDER [facility] [address] [place] [address] Prasad Ambrosio MD [facility] [address] [place] [address] documented as of this encounter Visit Diagnoses Not on filedocumented in this encounter Additional Health Concerns Assessment Noted Time PHQ-9 Depression Total Score: 19 024 8:08 AM CDT documented as of this encounter Care Teams Room Service Food Server Relationship Specialty Start Date End Date Lucy Phillips PA-C [address] [place] [address] PCP - General PHYSICIAN WINDING INSPECTOR 05/21/23 documented as of this encounter
--- OUTSIDE RECORDS SUMMARY | 2024-10-11 00:55 | XMS_ITS | Encounter Summary ---
Author Organization [facility] Address [address] [place] [address] Care Team Providers Care Baler Name Role Phone Bhakti Weldon Primary Care Provider [phone] Yomaira VegaP- Primary Care Provider + Lucy Phillips PA-C Primary Care Provider [phone] Encounter Details Date Type Department Care Team (Latest Contact Info) Description 08/12/2022 [employer] Message [facility] [address] [place] [phone] Coretta Vargas NP Follow up on 08/14/23 Social History Tobacco Use Types Packs/Day Years [...] Coronavirus/COVID-19? No / Unsure 08/11/2022 1:43 PM CULLED FRUIT PACKER documented as of this encounter Progress Notes * Coretta Vargas NP - 08/12/2022 2:35 PM CST ... ED FRUIT PACKER documented in this encounter Plan of Treatment Upcoming Encounters Date Type Department Care Team (Late st Contact Info) Description 11/22/2024 7:40 AM CDT Office Visit [facility] Medical Group Family & Internal Medicine [address] [address] [place] [address] [place], [place] [phone] 09/01/2025 9:15 AM CULLED FRUIT PACKER Office Visit [facility] [phone] Prasad Ambrosio MD [address] [address] documented as of this encounter Visit Diagnoses Not on filedocumented in this encounter Additional Health Concerns Assessment Noted Time PHQ-9 Depression Total Score: 0 05/01/20 21 2:49 PM CDT documented as of this encounter Care Teams Baler Relationship Specialty Start Date End Date Bhakti Weldon PA PCP - General PHYSICIAN PORTAINER OPERATOR 01/22/19 11/10/22 Yomaira Vega FNP- PCP - General Nurse Practitioner Family 11/11/2204/25 Lucy Phillips PA-C [address] [place] [address] PCP - General PHYSICIAN PORTAINER OPERATOR 05/21/23 documented as of this encounter
--- OUTSIDE RECORDS SUMMARY | 2024-10-11 00:55 | XMS_ITS | Encounter Summary ---
Author Organization [facility] Address [address] [place] [address] Care Team Providers Care Outdoor Adventure Leader Name Role Phone Bhakti Weldon Primary Care Provider [phone] Yomaira VegaP- Primary Care Provider + Lucy Phillips-C Primary Care Provider [phone] Encounter Details Date Type Department Care Team (Late st Contact Info) Description 05/09/2021 [employer] Message Enc [facility] Medical Group Multispecialty Care - [facility] [address] [facility], [address] [place] [phone] Melissa Escalante APRN [address] [facility] [address] [place], [place] [phone] RE: Other Social History Tobacco Use Types Packs/Day Years [...] Exposure Response Date Recorded In the last month, have you been in contact with someone who was confirmed or suspected to have Coronavirus / COVID-19? Yes 05/01/2021 1:03 PM CDT documented as of this encounter Plan of Treatment Upcoming Encounters Date Type Department Care Team (Late st Contact Info) Description 11/22/2024 7:40 AM CDT Office Visit [facility] Medical Group Family & Internal Medicine [address] [address] [place] [address] [place], [place] [phone] 09/01/2025 9:15 AM TOOL SMITH [facility] [address] [place] [phone] Prasad Ambrosio MD [address] [address] documented as of this encounter Visit Diagnoses Not on filedocumented in this encounter Additional Health Concerns Assessment Noted Time PHQ-9 Depression Total Score: 0 05/01/20 21 2:49 PM CDT documented as of this encounter Care Teams Outdoor Adventure Leader Relationship Specialty Start Date End Date Bhakti Weldon PA PCP - General PHYSICIAN ORTHO TECH 01/22/19 11/10/22 Yomaira Vega FNP- PCP - General Nurse Practitioner Family 11/11/22 9/03/15 Lucy Phillips PA-C [address] [place] [address] PCP - General PHYSICIAN ORTHO TECH 05/21/23 documented as of this encounter
--- OUTSIDE RECORDS SUMMARY | 2024-10-11 00:55 | XMS_ITS | Encounter Summary ---
Author Organization [facility] Address [address] [place] [address] Care Team Providers Care Mobile Homes Repairer Name Role Phone Lucy Phillips PA-C Primary Care Provider [phone] Encounter Details Date Type Department Care Team (Late st Contact Info) Description 12/02/2023 [employer] Message Enc [facility] Medical Group Multispecialty Care - [facility] [address] [facility], [address] [place] [address] Josr, [facility] Provider MRI Social History Tobacco Use Types Packs/Day Years [...] CDT Travel History Travel Start Travel End [facility] 10/02/2024 10/10/2024 documented as of this encounter Functional Status * RETIRED Are you deaf or do you have serious difficulty hearing Answer Date of Assessment Author Status No 10/01/2022 1:55 PM DATA REPORT ANALYST Activ e * RETIRED Are you blind or do you have serious difficulty seeing, even when wearing glasses? Answer Date of Assessment Author Status No 10/01/2022 1:55 PM DATA REPORT ANALYST Activ e * Do you have serious [...] Colbert RN Active documented in this encounter Plan of Treatment Upcoming Encounters Date Type Department Care Team (Late st Contact Info) Description 11/22/2024 7:40 AM CDT Office Visit [facility] Medical Group Family & Internal Medicine - [place] [address] [place] [address] [place] [address] [place], [place] [phone] 09/01/2025 9:15 AM DATA REPORT ANALYST [facility] [address] [place] [phone] Prasad Ambrosio MD [place] [address] [place] [address] documented as of this encounter Visit Diagnoses Not on filedocumented in this encounter Additional Health Concerns Assessment Noted Time PHQ-9 Depression Total Score: 12 024 10:38 AM DATA REPORT ANALYST documented as of this encounter Care Teams Mobile Homes Repairer Relationship Specialty Start Date End Date Lucy Phillips PA-C [address] [place] [address] PCP - General PHYSICIAN TRANSFER KNITTER 05/21/23 documented as of this encounter
--- OUTSIDE RECORDS SUMMARY | 2024-10-11 00:55 | XMS_ITS | Encounter Summary ---
Author Organization [facility] Address [address] [place] [address] Care Team Providers Care Explosives Truck Driver Name Role Phone Bhakti Weldon Primary Care Provider [phone] Yomaira VegaP- Primary Care Provider + Lucy Phillips-C Primary Care Provider [phone] Encounter Details Date Type Department Care Team (Late st Contact Info) Description 08/12/2022 [employer] Message Enc [facility] Medical Group Multispecialty Care - [facility] [address] [facility], [address] [place] [phone] Temo Saldaña MD [address] [place] [address] Follow up apt on 01/23 Social History Tobacco Use Types Packs/Day Years [...] CDT Travel History Travel Start Travel End [place] 10/02/2024 10/10/2024 COVID-19 Exposure Response Date Recorded In the last 10 days, have yo u been in contact with someone who was confirmed or suspected to have Coronavirus/COVID-19? No / Unsure 08/11/2022 1:43 PM PARADI OPERATOR documented as of this encounter Plan of Treatment Upcoming Encounters Date Type Department Care Team (Late st Contact Info) Description 11/22/2024 7:40 AM CDT Office Visit [facility] Medical Group Family & Internal Medicine [address] [address] [place] [address] [place], [place] [phone] 09/01/2025 9:15 AM PARADI OPERATOR Office [facility] [phone] Prasad Ambrosio MD [address] [address] documented as of this encounter Visit Diagnoses Not on filedocumented in this encounter Additional Health Concerns Assessment Noted Time PHQ-9 Depression Total Score: 0 05/01/20 21 2:49 PM CDT documented as of this encounter Care Teams Explosives Truck Driver Relationship Specialty Start Date End Date Bhakti Weldon PA PCP - General PHYSICIAN PIPE CHIPPER 01/22/19 11/10/22 Yomaira Vega FNP-BC PCP - General Nurse Practitioner Family 11/11/22 9/03/15 Lucy Phillips PA-C [address] [place] [address] PCP - General PHYSICIAN PIPE CHIPPER 05/21/23 documented as of this encounter
--- OUTSIDE RECORDS SUMMARY | 2024-10-11 00:55 | XMS_ITS | Encounter Summary ---
Author Organization [facility] Address [address] [place] [address] Care Team Providers Care Proof Carrier Name Role Phone Bhakti Weldon Primary Care Provider [phone] Yomaira Vega- Primary Care Provider + Lucy Phillips-C Primary Care Provider [phone] Encounter Details Date Type Department Care Team (Latest Contact Info) Description 06/10/2021 [employer] Message Enc [facility] Medical Group Multispecialty Care - Health system [address] [facility], [address] [place] [phone] Melissa Escalante APRN [address] [facility] [address] [place] [address] Follow Up/Update Social History Tobacco Use Types Packs/Day Years [...] CDT Travel History Travel Start Travel End [place] 10/02/2024 10/10/2024 COVID-19 Exposure Response Date Recorded In the last month, have you been in contact with someone who was confirmed or suspected to have Coronavirus / COVID-19? No / Unsure 06/10/2021 5:12 PM CDT documented as of this encounter Progress Notes * Ambar Fried MA - 06/12/2021 8:15 AM CDT LVM for pt to call back to let her know case message * Melissa Escalante APRN - 06/11/2021 4:18 PM CDT Per the letter she sent, she needs to complete and fail 6 weeks of PT prior to getting lumbar MRI so cannot do appeal. As far as EMG is concerned the hospital should have reached out to her to schedule in [place], otherwise I can try to send the EMG/NCS to Dr. Tang but not expected to start these until the end of the month. Let me know. documented in this encounter Plan of Treatment Upcoming Encounters Date Type Department Care Team (Late st Contact Info) Description 11/22/2024 7:40 AM CDT Office Visit [facility] Medical Group Family & Internal Medicine [facility] [address] [place] [address] [place] [address] [place] [address] 09/01/2025 9:15 AM SETTER OUT Office Visit [facility] [address] [facility] [place] [phone] Prasad Ambrosio MD [facility] [address] [place] [address] documented as of this encounter Visit Diagnoses Not on filedocumented in this encounter Additional Health Concerns Assessment Noted Time PHQ-9 Depression Total Score: 0 05/01/20 21 2:49 PM CDT documented as of this encounter Care Teams Proof Carrier Relationship Specialty Start Date End Date Bhakti Weldon PA PCP - General PHYSICIAN ELECTRIC METER INSTALLER HELPER 01/22/19 11/10/22 [facility] PCP - General Nurse Practitioner Family 11/11/2204/25 Lucy Phillips PA-C [address] [place], [place] [phone] PCP - General PHYSICIAN ELECTRIC METER INSTALLER HELPER 05/21/23 documented as of this encounter
--- OUTSIDE RECORDS SUMMARY | 2024-10-11 00:55 | XMS_ITS | Encounter Summary ---
Author Organization [facility] Address [address] [place] [address] Care Team Providers Care Banker Mason Name Role Phone Bhakti Weldon Primary Care Provider [phone] Yomaira Vega-BC Primary Care Provider + Lucy Phillips-C Primary Care Provider [phone] Reason for Referral * Physical Medicine (Routine) - Closed Specialty Diagnoses / Procedures Referred By Alfredo stover Referred To Contact PHYSICAL THERAPY / [facility] Physical Therapy Diagnoses Sacroiliitis (CMS/HCC) Chronic midline low back pain without sciatica Melissa Escalante APRN [address] [facility] [address] [place] [address] Phone: tel: fax: [facility] [address] [place] [address] Phone: tel: fax: Referral ID Status Reason Start Date Expiration Date V isits Requested Visits Authorized [id number] Closed Physical Therapy 06/19/2021 07/20/2022 30 30 Scheduling Instructions Prefers PT at [facility] in [place]. Chronic low back pain. Likely due to body habitus. Encounter Details Date Type Department Care Team (Latest Contact Info) Description 06/14/2021 PerceptiMedjolanta Message Enc [facility] Medical Group Multispecialty Care - [facility] 3 [facility], [address] [place] [address] [facility] Provider RE: RE:physical Therapy Social History Tobacco Use Types Packs/Day Years [...] CDT Travel History Travel Start Travel End [facility] 10/02/2024 10/10/2024 COVID-19 Exposure Response Date Recorded In the last month, have you been in contact with someone who was confirmed or suspected to have Coronavirus / COVID-19? Yes 06/17/2021 2:43 PM CDT documented as of this encounter Progress Notes * Ambar Fried MA - 06/19/2021 1:12 PM CDT F/u made for 08-14-21 * Melissa Escalante APRN - 06/19/2021 12:09 PM CDT Patient has chronic low back pain. MRI denied due to not completely PT. Desires PT at [facility] in [place]. Orders placed. Needs a f/u in 8 weeks. documented in this encounter Plan of Treatment Upcoming Encounters Date Type Department Care Team (Late st Contact Info) Description 11/22/2024 7:40 AM CDT Office Visit [facility] Medical Group Family & Internal Medicine [facility] [address] [place] [address] [place] [address] [place], [place] [phone] 09/01/2025 9:15 AM ENGINEERING TECH [facility] [address] [place] [address] Prasad Ambrosio MD [address] [address] Scheduled Referrals Name Type Priority Associated Diagnoses Orde r Schedule Ambulatory referral to Physical Therapy Referral Routine Sacroiliitis Chronic midline low back pain without sciatica Ordered: 06/19/2021 documented as of this encounter Visit Diagnoses Diagnosis Sacroiliitis (CMS/HCC)- Primary Sacroiliitis, not elsewhere classified Chronic midline low back pain without sciatica documented in this encounter Additional Health Concerns Assessment Noted Time PHQ-9 Depression Total Score: 0 05/01/20 21 2:49 PM CDT documented as of this encounter Care Teams Banker Mason Relationship Specialty Start Date End Date Bhakti Weldon PA PCP - General PHYSICIAN MEAT PROCESSING CENTER MANAGER 01/22/19 11/10/22 Yomaira Vega FNP-BC PCP - General Nurse Practitioner Family 11/11/22 9/03/15 Lucy Phillips PA-C [address] [facility] [address] [place] [address] PCP - General PHYSICIAN MEAT PROCESSING CENTER MANAGER 05/21/23 documented as of this encounter
--- OUTSIDE RECORDS SUMMARY | 2024-10-11 00:55 | XMS_ITS | Encounter Summary ---
Author Organization [facility] Address [address] [place] [address] Care Team Providers Care Preparation Plant Supervisor Name Role Phone Bhakti Weldon Primary Care Provider [phone] Yomaira VegaP- Primary Care Provider + Lucy Phillips-C Primary Care Provider [phone] Encounter Details Date Type Department Care Team (Late st Contact Info) Description 05/07/2021 Nov[employer]t Message Enc [facility] Medical Group Multispecialty Care - [facility] 3 [facility], [address] [place] [phone] Melissa Escalante APRN 3 [facility] [address] [place], [place] [id number] RE: Other Social History Tobacco Use Types [...] as of this encounter Progress Notes * Melissa Escalante APRN - 05/07/2021 3:35 PM CDT I will have to do some research. Dr. Young does not have his machine until possibly the end of the month otherwise I will have to send her to [place]. documented in this encounter Plan of Treatment Upcoming Encounters Date Type Department Care Team (Late st Contact Info) Description 11/22/2024 7:40 AM CDT Office Visit [facility] Medical Group Family & Internal Medicine [facility] [address] [place] [address] [place] [address] [place] [address] 09/01/2025 9:15 AM CONE WINDER [facility] [address] [place] [address] Prasad Ambrosio MD [address] [address] documented as of this encounter Visit Diagnoses Not on filedocumented in this encounter Additional Health Concerns Assessment Noted Time PHQ-9 Depression Total Score: 0 05/01/20 2:49 PM CDT documented as of this encounter Care Teams Preparation Plant Supervisor Relationship Specialty Start Date End Date Bhakti Weldon PA PCP - General PHYSICIAN ELECTRICAL POWER ENGINEER 01/22/19 11/10/22 [facility] - General Nurse Practitioner Family 11/11/2204/25 Lucy Phillips PA-C [address] [place] [address] PCP - General PHYSICIAN ELECTRICAL POWER ENGINEER 05/21/23 documented as of this encounter
--- OUTSIDE RECORDS SUMMARY | 2024-10-11 00:55 | XMS_ITS | Encounter Summary ---
Author Organization [facility] Address [address] [place] [address] Care Team Providers Care Supervisor Cartography Name Role Phone Lucy Phillips PA-C Primary Care Provider [phone] Encounter Details Date Type Department Care Team (Late st Contact Info) Description 02/02/2024 Sunbeamt Message Enc [facility] Medical Group Orthopedic & Sports Medicine - [place] [address] [place] [address] Lencho Acharya, GLEN [address] [place] [address] Ongoing pain Social History Tobacco Use Types Packs/Day Years [...] CDT Travel History Travel Start Travel End [place] 10/02/2024 10/10/2024 documented as of this encounter Functional Status * RETIRED Are you deaf or do you have serious difficulty hearing Answer Date of Assessment Author Status No 10/01/2022 1:55 PM SALES OFFICE ADMINISTRATOR Activ e * RETIRED Are you blind or do you have serious difficulty seeing, even when wearing glasses? Answer Date of Assessment Author Status No 10/01/2022 1:55 PM SALES OFFICE ADMINISTRATOR Activ e * Do you have serious [...] Description 11/22/2024 7:40 AM CDT Office Visit [facility] Medical Group Family & Internal Medicine [facility] [address] [place] [address] [place] [address] [place] [address] 09/01/2025 9:15 AM SALES OFFICE ADMINISTRATOR [facility] [address] [place] [address] Prasad Ambrosio MD [place] [id number] [place] [address] documented as of this encounter Visit Diagnoses Not on filedocumented in this encounter Additional Health Concerns Assessment Noted Time PHQ-9 Depression Total Score: 12 024 10:38 AM SALES OFFICE ADMINISTRATOR documented as of this encounter Care Teams Supervisor Cartography Relationship Specialty Start Date End Date Lucy Phillips PA-C [address] [address] [place] [address] PCP - General PHYSICIAN ARCHITECTURE FACULTY MEMBER 05/21/23 documented as of this encounter
--- OUTSIDE RECORDS SUMMARY | 2024-10-11 00:55 | XMS_ITS | Encounter Summary ---
Author Organization [facility] Address [address] [place] [address] Care Team Providers Care Director Speech Name Role Phone Bhakti Weldon Primary Care Provider Yomaira VegaP- Primary Care Provider + Lucy Phillips-C Primary Care Provider [phone] Encounter Details Date Type Department Care Team (Latest Contact Info) Description 04/17/2022 Integrata Securityt Message Enc [facility] Medical Group Multispecialty Care - [facility] 3 [facility], [address] [place] [phone] Melissa Escalante APRN 3 [facility] [address] [place] [address] Lumbar MRI Results Social History Tobacco Use Types [...] CDT Travel History Travel Start Travel End [place] 10/02/2024 10/10/2024 COVID-19 Exposure Response Date Recorded In the last 10 days, have yo u been in contact with someone who was confirmed or suspected to have Coronavirus/COVID-19? No / Unsure 04/15/2022 1:43 PM CDT documented as of this encounter Progress Notes * Mylene Vicente MA - 04/29/2022 12:57 PM CDT Melissa please advise. documented in this encounter Plan of Treatment Upcoming Encounters Date Type Department Care Team (Late st Contact Info) Description 11/22/2024 7:40 AM CDT Office Visit [facility] Medical Group Family & Internal Medicine - [place] [address] [place] [address] [place] [address] [place] [address] 09/01/2025 9:15 AM MEDICAL BILLING AND CODING SPECIALIST [facility] [address] [place] [address] Prasad Ambrosio MD [address] [address] documented as of this encounter Visit Diagnoses Not on filedocumented in this encounter Additional Health Concerns Assessment Noted Time PHQ-9 Depression Total Score: 0 05/01/20 21 2:49 PM CDT documented as of this encounter Care Teams Director Speech Relationship Specialty Start Date End Date Bhakti Weldon PA PCP - General PHYSICIAN PLISSE MACHINE OPERATOR HELPER 01/22/19 11/10/[address] [facility] [facility] PCP - General Nurse Practitioner Family 11/11/2204/25 Lucy Phillips PA-C [address] [place] [address] PCP - General PHYSICIAN PLISSE MACHINE OPERATOR HELPER 05/21/23 documented as of this encounter
--- OUTSIDE RECORDS SUMMARY | 2024-10-11 00:55 | XMS_ITS | Encounter Summary ---
Author Organization [facility] Address [address] [place] [address] Care Team Providers Care Glove Turner And Former Name Role Phone Bhakti Weldon Primary Care Provider Yomaira Vega- Primary Care Provider + Lucy Phillips-C Primary Care Provider [phone] Encounter Details Date Type Department Care Team (Latest Contact Info) Description 05/21/2021 Timelinert Message Enc [facility] Medical Group Multispecialty Care - [facility] 3 [facility], [address] [place] [address] Melissa Escalante APRN 3 [facility] [address] [place] [address] RE: Follow Up/Update Social History Tobacco Use Types [...] CDT Travel History Travel Start Travel End [place] 10/02/2024 10/10/2024 COVID-19 Exposure Response Date [...] CENTER Medical Group Family & Internal Medicine [facility] [address] [place] [address] [place] [address] [place], [place] [phone] 09/01/2025 9:15 AM BLANKET WEAVER Office [facility] [address] [place] [address] Prasad Ambrosio MD [address] [address] documented as of this encounter Visit Diagnoses Not on filedocumented in this encounter Additional Health Concerns Assessment Noted Time PHQ-9 Depression Total Score: 0 05/01/20 21 2:49 PM CDT documented as of this encounter Care Teams Glove Turner And Former Relationship Specialty Start Date End Date Bhakti Weldon PA PCP - General PHYSICIAN VETERINARIAN SMALL ANIMAL 01/22/19 11/10/22 Yomaira Vega FNP- PCP - General Nurse Practitioner Family 11/11/22 903/15 Lucy Phillips PA-C [address] [place] [address] PCP - General PHYSICIAN VETERINARIAN SMALL ANIMAL 05/21/23 documented as of this encounter
--- OUTSIDE RECORDS SUMMARY | 2024-10-11 00:56 | XMS_ITS | Encounter Summary ---
Author Organization [facility] Address [address] [place] [address] Care Team Providers Care Gas Torch Brazier Name Role Phone Lucy Phillips PA-C Primary Care Provider [phone] Encounter Details Date Type Department Care Team (Late st Contact Info) Description 08/30/2024 Allegory Lawt Message Enc [facility] Medical Group Orthopedic & Sports Medicine - [place] [address] [place], [place] [phone] Memo Amor MD [address] [place] [address] Splint question Social History Tobacco Use Types Packs/Day Years Used Date Smoking Tobacco: Never Smokeless Tobacco: Never Comments:not a smoker Alcohol Use Standard Drinks/Week Comments Yes 0 (1 standard drink = 0.6 oz pur e alcohol) SOCIALLY AUDIT-C Answer Date Recorded Frequency of Alcohol Consumption Never 03/16/2019 Average Number of Drinks Not on file 019 Frequency of Binge Drinking Not on file 02/22 PHQ-2 Answer Date Recorded Patient Health Questionnaire-2 Score 6 08/30/2024 Comments No Sex and Gender Information Value Date Recorded Sex Assigned at Female 05/04/2019 4:40 PM CDT Legal Sex Female 9:06 PM CDT Gender Identity Female 05/04/2019 4:40 PM CDT Sexual Orientation Straight 05/04/2019 4: 40 PM CDT Travel History Travel Start Travel End [place] 10/02/2024 10/10/2024 documented as of this encounter Functional Status * RETIRED Are you deaf or do you have serious difficulty hearing Answer Date of Assessment Author Status No 10/01/2022 1:55 PM DATA ENTRY Activ e * RETIRED Are you blind or do you have serious difficulty seeing, even when wearing glasses? Answer Date of Assessment Author Status No 10/01/2022 1:55 PM DATA ENTRY Activ e * Do you have serious [...] Description 11/22/2024 7:40 AM CDT Office Visit [facility] Medical Group Family & Internal Medicine [facility] [address] [place] [address] [place] [address] [place], [place] [phone] 09/01/2025 9:15 AM DATA ENTRY [facility] [address] [place] [address] Prasad Ambrosio MD [place] [address] [place] [address] documented as of this encounter Visit Diagnoses Not on filedocumented in this encounter Additional Health Concerns Assessment Noted Time PHQ-9 Depression Total Score: 18 024 9:08 AM DATA ENTRY documented as of this encounter Care Teams Gas Torch Brazier Relationship Specialty Start Date End Date Lucy Phillips PA-C [address] [facility] [address] [place] [address] PCP - General PHYSICIAN GRINDING WHEEL FACER 05/21/23 documented as of this encounter
--- OUTSIDE RECORDS SUMMARY | 2024-10-11 00:56 | XMS_ITS | Encounter Summary ---
Author Organization [facility] Address [address] [place] [address] Care Team Providers Care Ring Spinner Name Role Phone Yomaira Vega- Primary Care Provider + Lucy Phillips PA-C Primary Care Provider [phone] Encounter Details Date Type Department Care Team (Late st Contact Info) Description 01/19/2023 MyCJointly Healtht Message Enc [facility] Medical Group Orthopedic & Sports Medicine - [place] [address] [place], [place] [phone] Memo Amor MD [address] [place], [place] [phone] Surgery schedule Social History Tobacco Use Types Packs/Day Years [...] Answer Date Recorded Patient Health Questionnaire-2 Score 2 01/13/2023 Comments No Sex and Gender Information Value Date Recorded Sex Assigned at Female 05/04/2019 4:40 PM CDT Legal Sex Female 9:06 PM CDT Gender Identity Female 05/04/2019 4:40 PM CDT Sexual Orientation Straight 05/04/2019 4: 40 PM CDT Travel History Travel Start Travel End [facility] [place] 10/02/2024 10/10/2024 COVID-19 Exposure Response Date Recorded In the last 10 days, have yo u been in contact with someone who was confirmed or suspected to have Coronavirus/COVID-19? No / Unsure 01/22/2023 2:53 PM CDT documented as of this encounter Functional Status * RETIRED Are you deaf or do you have serious difficulty hearing Answer Date of Assessment Author Status No 10/01/2022 1:55 PM CAR REPAIRER APPRENTICE Activ e * RETIRED Are you blind or do you have serious difficulty seeing, even when wearing glasses? Answer Date of Assessment Author Status No 10/01/2022 1:55 PM CAR REPAIRER APPRENTICE Activ e * Do you have serious [...] Description 11/22/2024 7:40 AM CDT Office Visit [facility] Medical Group Family & Internal Medicine [facility] [address] [place] [address] Gume Bloom PA [address] [place] [address] 09/01/2025 9:15 AM CAR REPAIRER APPRENTICE Office Visit [facility] [address] [place] [address] Prasad Ambrosio MD [place] [address] [place] [address] documented as of this encounter Visit Diagnoses Not on filedocumented in this encounter Additional Health Concerns Assessment Noted Time PHQ-9 Depression Total Score: 13 023 3:13 PM CDT documented as of this encounter Care Teams Ring Spinner Relationship Specialty Start Date End Date [facility] PCP - General Nurse Practitioner Family 11/11/22 9/2 03/15 Lucy Phillips, PAChandniC [address] [address] [place] [address] PCP - General PHYSICIAN ASSISTANT COUNSEL 05/21/23 documented as of this encounter
--- OUTSIDE RECORDS SUMMARY | 2024-10-11 00:56 | XMS_ITS | Encounter Summary ---
Author Organization [facility] Address [address] [place] [address] Care Team Providers Care Site Safety Manager Name Role Phone Yomaira Vega- Primary Care Provider + Lucy PhillipsC Primary Care Provider [phone] Encounter Details Date Type Department Care Team (Late st Contact Info) Description 03/03/2023 MyCDecisivt Message Enc [facility] Medical Group Orthopedic & Sports Medicine - [place] [address] [place] [address] Lencho Acharya NP [address] [place] [address] Update Social History Tobacco Use Types Packs/Day Years [...] Date Recorded Patient Health Questionnaire-2 Score 0 02/10/2023 Comments No Sex and Gender Information Value Date Recorded Sex Assigned at Female 05/04/2019 4:40 PM CDT Legal Sex Female 9:06 PM CDT Gender Identity Female 05/04/2019 4:40 PM CDT Sexual Orientation Straight 05/04/2019 4: 40 PM CDT Travel History Travel Start Travel End [place] 10/02/2024 10/10/2024 documented as of this encounter Functional Status * RETIRED Are you deaf or do you have serious difficulty hearing Answer Date of Assessment Author Status No 10/01/2022 1:55 PM FUR STRETCHER Activ e * RETIRED Are you blind or do you have serious difficulty seeing, even when wearing glasses? Answer Date of Assessment Author Status No 10/01/2022 1:55 PM FUR STRETCHER Activ e * Do you have serious [...] Description 11/22/2024 7:40 AM CDT Office Visit [facility] Medical Group Family & Internal Medicine [facility] [address] [place] [address] [place] [address] [place], [place] [phone] 09/01/2025 9:15 AM FUR STRETCHER [facility] [address] [place] [address] Prasad Ambrosio MD [facility] [address] [place] [address] documented as of this encounter Visit Diagnoses Not on filedocumented in this encounter Additional Health Concerns Assessment Noted Time PHQ-9 Depression Total Score: 13 01/13/ 023 3:13 PM CDT documented as of this encounter Care Teams Site Safety Manager Relationship Specialty Start Date End Date Yomaira Vega FNP-BC PCP - General Nurse Practitioner Family 11/11/2204/25 Lucy Phillips, PAChandniC [address] [address] PCP - General PHYSICIAN OTR VAN CDL TRUCK DRIVER 05/21/23 documented as of this encounter
--- OUTSIDE RECORDS SUMMARY | 2024-10-11 00:56 | XMS_ITS | Encounter Summary ---
Author Organization [facility] Address [address] [place] [address] Care Team Providers Care Still Operator Brandy Name Role Phone Lucy Phillips PA-C Primary Care Provider [phone] Encounter Details Date Type Department Care Team (Late st Contact Info) Description 09/05/2024 FreeDrive Message Enc [facility] Medical Group Family & Internal Medicine [facility] [address] [place] [address] [place] [address] [place], [place] [phone] Medication side effect Social History Tobacco Use Types Packs/Day Years [...] Assessment Author Status No 10/01/2022 1:55 PM LONGITUDINAL FLOAT OPERATOR Activ e * RETIRED Are you blind or do you have serious difficulty seeing, even when wearing glasses? Answer Date of Assessment Author Status No 10/01/2022 1:55 PM LONGITUDINAL FLOAT OPERATOR Activ e * Do you have serious difficulty walking or climbing stairs? Answer Date of Assessment Author Status No 10/01/2022 1:55 PM LONGITUDINAL FLOAT OPERATOR Willa Quispe RN Active * Do you have difficulty dressing or bathing? Answer Date of Assessment Author Status No 10/01/2022 1:55 PM LONGITUDINAL FLOAT OPERATOR Willa Quispe RN Active * Because of a physical, mental, or emotional condition, do you have difficulty doing errands alone such as visiting a doctor's office or shopping? Answer Date of Assessment Author Status No 10/01/2022 1:55 PM LONGITUDINAL FLOAT OPERATOR Willa Quispe RN Active documented as of this encounter Mental Status * Because of a physical, mental, or emotional condition, do you have serious difficulty concentrating, remembering, or making decisions? Answer Entry Date Author Status No 10/01/2022 1:55 PM LONGITUDINAL FLOAT OPERATOR Willa Quispe RN Active documented in this encounter Progress Notes * Vanessa Marinelli MA - 09/05/2024 3:36 PM CST Please advise ITUDINAL FLOAT OPERATOR documented in this encounter Plan of Treatment Upcoming Encounters Date Type Department Care Team (Late st Contact Info) Description 11/22/2024 7:40 AM CDT Office Visit [facility] Medical Group Family & Internal Medicine [facility] [address] [place] [address] [place] [address] [place] [address] 09/01/2025 9:15 AM LONGITUDINAL FLOAT OPERATOR Office Visit [facility] [address] [place] [address] Prasad Ambrosio MD [place] [address] [place] [address] documented as of this encounter Visit Diagnoses Not on filedocumented in this encounter Additional Health Concerns Assessment Noted Time PHQ-9 Depression Total Score: 18 024 9:08 AM LONGITUDINAL FLOAT OPERATOR documented as of this encounter Care Teams Still Operator Brandy Relationship Specialty Start Date End Date Lucy Phillips PA-C [address] [facility] [address] [place] [address] PCP - General PHYSICIAN RESTAURANT ATTENDANT 05/21/23 documented as of this encounter
--- OUTSIDE RECORDS SUMMARY | 2024-10-11 00:56 | XMS_ITS | Clinical Summary ---
Author Organization [facility] Address [address] [place] [address] Care Team Providers Care Hospital Superintendent Name Role Phone Lucy Phillips PA-C Primary Care Provider [phone] Allergies Active Allergy Reactions Criticality Noted Date Comments Tape Rash,Itching,Redness Medium 05/15/2023 Cat Dander Sneezing,Other (see comment) Medium 05/14/2018 Itchy watery eyes Dog Dander Other (see comment),Sneezing Medium 05/14/2018 Itchy watery eyes Grass Runny Nose 09/19/2022 Misc Natural Products Itching,Sneezing,O the r (see comment) Medium 05/14/2018 Dust and Exhaust fumes Molds & Smuts Itching,Sneezing,Oth e r (see comment) Medium 05/14/2018 Pollen Extract Runny Nose 09/19/2022 Tree Extract Runny Nose 09/19/2022 Medications albuterol sulfate HFA 108 (90 Base) MCG/ACT inhaler Inhale 2 puffs into the lungs every 6 (six) hours as needed. 016 Active EPINEPHrine 0.3 MG/0.3ML injection Inject 0.3 mLs (0.3 mg total) into the muscle as needed. 99 019 Active montelukast 10 MG tablet Take 1 tablet (10 mg total) by mouth nightly at bedtime. 02/03/2 020 Active Cetirizine HCl (ZYRTEC ALLERGY) 10 MG Cap Take by mouth nightly. Active Spacer/Aero-Hold ing Chambers (EQ SPACE CHAMBER ANTI-STATIC) Device as directed with inhaler Active fluticasone propionate (FLONASE) 50 MCG/ACT nasal spray 1 spray by Nasal route nightly. Active levothyroxine (SYNTHROID) 150 MCG tablet Take 1 tablet (150 mcg total) by mouth daily. Taking 150 mcg Active ondansetron (ZOFRAN-ODT) 8 MG disintegrating tablet Take 1 tablet (8 mg total) by mouth every 8 (eight) hours as needed for Nausea. 10 tablet Active Multiple Vitamin (MULTIVITAMIN ADULT OR) Take 1 tablet by mouth daily. bariatric Active calcium carbonate (TUMS) 500 MG chewable tablet Chew 1 tablet (500 mg total) by mouth 3 (three) times daily. Active vitamin B-12 (CYANOCOBALAMIN) (CYANOCOBALAMIN) 1000 mcg tablet Take 1 tablet (1,000 mcg total) by mouth daily. Active cyclobenzaprine (FLEXERIL) 5 MG tablet Take 1 tablet (5 mg total) by mouth. Active diclofenac sodium (VOLTAREN) 1 % gelIndications:C hronic pain of right knee Apply 2 g topically 4 (four) times daily as needed. 100 g Active tocilizumab (ACTEMRA) 162 mg/0.9mL Solution Auto-injector injection auto-injector Inject 0.9 mLs (162 mg total) into the skin once a week. Active Albuterol-Budeso nide (AIRSUPRA) 90-80 MCG/ACT AerosolIndicatio ns:Upper respiratory tract infection, unspecified type,Mild intermittent asthma, unspecified whether complicated (HHS/HCC) Inhale 2 Inhalations into the lungs every 4 (four) hours as needed. 10.7 g Active famotidine (PEPCID) 40 MG tablet 1 tablet Orally 1 hr prior to allergy shot for 30 days Active ondansetron (ZOFRAN-ODT) 4 MG disintegrating tablet Take 1 tablet (4 mg total) by mouth every 8 (eight) hours as needed for Nausea. 20 tablet Active clindamycin (CLEOCIN T) 1 % gel APPLY THIN LAYER TOPICALLY TO AFFECTED AREAS OF ACNE AND HS UP TO TWICE DAILY NEEDED Active metroNIDAZOLE (METROGEL) 0.75 % vaginal gel INSERT 1 APPLICATORFUL VAGINALLY ONCE DAILY AT BEDTIME FOR 5 DAYS Active WALKER FE 09/12 1-20 MG-MCG tablet Active sulfamethoxazole -trimethoprim (BACTRIM DS) 800-160 MG tablet Active buPROPion XL (WELLBUTRIN XL) 300 MG 24 hr tabletIndication s:Moderate major depression (CMS/HCC HHS/HCC) Take 1 tablet (300 mg total) by mouth daily. 30 tablet 1 Active methylPREDNISolo ne, JOHNY, (MEDROL DOSEPAK) 4 MG tabletIndication s:Trigger finger of right thumb,Trigger middle finger of right hand Take 1 tablet (4 mg total) by mouth see administration instructions. Follow package taper directions 1 each Active Additional Information Patient not taking.Reported on 09/21/2024 PARoxetine (PAXIL) 10 MG tabletIndication s:Moderate major depression (CMS/HCC HHS/HCC) Take 1 tablet (10 mg total) by mouth every morning. 90 tablet 025 2024 Active meloxicam (MOBIC) 15 MG tabletIndication s:Hand arthritis Take 1 tablet (15 mg total) by mouth daily. 30 tablet Active ketorolac (TORADOL) 10 MG tablet Take 1 tablet (10 mg total) by mouth every 6 (six) hours as needed for Pain. 20 tablet 025 2024 Active morphine (MSIR) 15 MG tabletIndication s:Acute Pain < 7 Day Supply Take 0.5 tablets (7.5 mg total) by mouth every 6 (six) hours as needed. Indications: Acute Pain < 7 Day Supply 10 tablet Active LORYNA 3-0.02 MG tablet Take 1 tablet by mouth daily. 023 2024 Discontinued gabapentin (NEURONTIN) 100 MG capsule Take 1 capsule (100 mg total) by mouth 2 (two) times daily. 024 2024 Discontinued meloxicam (MOBIC) 15 MG tabletIndication s:Hand arthritis Take 1 tablet (15 mg total) by mouth daily. 30 tablet 024 2024 Discontinued(R eorder) Active Problems Problem Noted Date Diagnosed Date Mixed hyperlipidemia 08/19/2024 Assessment & Plan (08/19/2024 1:24 PM WIRELESS NETWORK ENGINEER): Cholesterol levels elevated on last lipid panel. Previous lipid panel from 2022 with well controlled levels. Encouraged dietary and exercise modifications for cholesterol control. DDD (degenerative disc disease), thoracolumbar 0 04/04/2024 Bilateral hip pain 04/04/2024 Assessment & Plan (04/04/2024 5:28 PM CDT): Left is worse than the right, but the right knee pain is worse. She has failed anti-inflammatory, steroid shots, visco-supplement injections, therapy, activity modification, attempted weight loss. recommendation at this time. We went over the risks, benefits, as well as the alternatives. We tried getting her set up for an MRI of her right hip to see if there's any other reason that she may be having radicular pain down into her knee. We will see her back after the MRI. Primary osteoarthritis of right knee 11/24/2023 Patellofemoral syndrome of right knee 11/23/2023 Assessment & Plan (11/23/2023 3:43 PM CDT): Recommendation at this time: went over the risks, benefits as well as the alternatives. Will try a steroid injection to the knee. If that gives her the relief she is looking for, we can consider viscosupplementation. If it does not provide relief, then may need to have further work up. Patient will be seen back as needed. Papillary adenocarcinoma, fo llicular variant ([facility] HHS/HCC) 02/10/2023 Morbid obesity ([facility] HHS/HCC) 10/01/2022 Inflammatory arthritis 09/24/2022 Spinal stenosis of cervical region 10/21/2021 Foraminal stenosis of cervical region 10/21/2021 Other cervical disc degenera tion, unspecified cervical region 10/21/2021 Radiculopathy, cervical region 10/21/2021 Carpal tunnel syndrome of right wrist 08/14/2021 Primary hypertension 08/02/2021 Assessment & Plan (08/19/2024 1:22 PM WIRELESS NETWORK ENGINEER): Blood pressure well controlled in office today at 128/82mmHg. Previously elevated at prior office visits. Encouraged weight loss for continued blood pressure control. Likely will not need pharmacologic therapy if weight loss is continued. Assessment & Plan (08/08/2022 10:42 AM WIRELESS NETWORK ENGINEER): Her blood pressure is elevated in the office today. Encouraged home blood pressure monitoring. Encouraged continued weight loss and she likely will not need pharmacologic therapy if she continues to lose weight. Assessment & Plan (08/02/2021 2:01 PM WIRELESS NETWORK ENGINEER): Elevated - Has noted bp to increase since weight increase Spoke about dietary modifications - would like to see emt/dispatcher. Will continue to monitor - see if with weight loss bp will normalize - if not we can start low dose antihypertensive Chest pain in adult 07/01/2021 Assessment & Plan (08/08/2022 10:41 AM WIRELESS NETWORK ENGINEER): Her chest pain is likely noncardiac in nature, especially since her coronaries were normal on her CTA. Recommended continued monitoring and evaluation for gastrointestinal etiologies as she is doing. Assessment & Plan (08/02/2021 2:00 PM WIRELESS NETWORK ENGINEER): CCTA with scoring for risk stratification due to family history and symptoms Assessment & Plan (07/01/2021 4:29 PM WIRELESS NETWORK ENGINEER): I have explained to her that given her age, her risk for coronary artery disease is low. Her only real risk factor is her body habitus. She has not been diagnosed with diabetes, hypertension or hyperlipidemia and she does not smoke. I do not think a stress test would be usefulAt this point. We could consider a coronary CTA in the future. I do not think that she warrants pharmacologic therapy for her chest pain at this time. Palpitations 07/01/2021 Assessment & Plan (08/19/2024 1:16 PM WIRELESS NETWORK ENGINEER): Patient has noticed increased palpitations with her weight gain over the past few months. When she previously lost weight her palpitations decreased. Prior holter monitor did not show arrhythmias. Encouraged weight loss and compliance with cpap. Assessment & Plan (08/08/2022 10:41 AM WIRELESS NETWORK ENGINEER): On her Holter monitor there was no evidence of arrhythmia. Provided her with reassurance. Assessment & Plan (08/02/2021 2:02 PM WIRELESS NETWORK ENGINEER): HM - NSR Assessment & Plan (07/01/2021 4:29 PM WIRELESS NETWORK ENGINEER): I recommended that she get a 48-hour Holter monitor to further evaluate her symptoms. We will await her testing before determining if she requires pharmacologic therapy for palpitations. Numbness and tingling in right hand 05/01/2021 Neck pain 05/01/2021 Myofascial pain 05/01/2021 Mixed stress and urge incontinence 02/15/2021 Chronic bilateral low back pain without sciatica 01/01/2021 Sacroiliitis 08/21/2020 Impingement syndrome of left shoulder 02/09/2020 Impingement syndrome of right shoulder 0 Chronic pain of both shoulders 02/09/2020 Foot swelling 03/16/2019 PVNS (pigmented villonodular synovitis) 04/27/20 18 Overview (05/04/2019): Overview: Added automatically from request for surgery [id number] RICA (obstructive sleep apnea) 12/12/2015 Allergic rhinitis due to house dust mite 016 Allergic rhinitis 09/17/2015 Asthma (HHS/HCC) 07/27/2015 Chronic cough 07/27/2015 Obesity due to excess calories 07/27/2015 Assessment & Plan (08/08/2022 10:42 AM WIRELESS NETWORK ENGINEER): She is morbidly obese with a Body mass index is 55.05 kg/m . She was educated on lifestyle modifications including diet and exercise. Assessment & Plan (08/02/2021 2:02 PM WIRELESS NETWORK ENGINEER): Agree with emt/dispatcher Lifestyle modifications Most likely joint pain and bp related to above Assessment & Plan (07/01/2021 4:28 PM WIRELESS NETWORK ENGINEER): I am concerned that her body habitus is contributing to her symptoms. We will obtain her cardiac testing before recommending lifestyle modifications. Snoring 07/27/2015 Resolved Problems Problem Noted Date Diagnosed Date Resolved Date Thyroid ca (CMS/HCC HHS/HCC) 09/22/2022 02/10/2023 Nodule of right lobe of thyroid gland 03/19/2022 09/22/2022 Prediabetes 03/19/2022 09/22/2022 Encounter for preventive health examination 07/26/2015 05/04/2020 Encounters Date Type Department Care Team Description 10/10/2024 2:12 AM WIRELESS NETWORK ENGINEER - 10/10/2024 5:14 AM [facility] Emergency [facility] Emergency Room [address] [place] [id number] Sherif Atkins DO Back Pain (04/02 continuous left mid to entire lower, nausea, and diarrhea beginning Thursday) Discharge Disposition: Home or Self Care (Routine Discharge) 10/10/2024 Travel 09/30/2024 Patient Self-Triage [facility] DEFAULT [facility] Provider 09/21/2024 7:20 AM WIRELESS NETWORK ENGINEER Office Visit [facility] Medical Group Family & Internal Medicine [address] [phone] Gume Bloom PA Follow Up (1 month follow up); Anxiety; Depression; Hand Pain (discuss) 09/21/2024 Travel 09/15/2024 7:06 AM WIRELESS NETWORK ENGINEER - 09/15/2024 11:59 PM WIRELESS NETWORK ENGINEER Hospital Encounter [facility] Laboratory [address] [place] [phone] Lucy Phillips PA-C Discharge Disposition: Home or Self Care (Routine Discharge) 09/15/2024 7:05 AM WIRELESS NETWORK ENGINEER Hospital Encounter [address] [address] Marika Myles, BEAM BUILDER Discharge Disposition: Home or Self Care (Routine Discharge) 09/15/2024 Orders Only [facility] [address] [place] [address] Marika Myles, BEAM BUILDER 09/15/2024 Travel 09/13/2024 Scan [facility] INFO [facility] Scanned, Doc Med Group 09/05/2024 6:59 AM WIRELESS NETWORK ENGINEER - 09/05/2024 11:59 PM WIRELESS NETWORK ENGINEER Hospital Encounter [facility] Occupational Therapy [address] [place] [address] Wendy Jimenes V, OT Memo Amor MD Hand Pain Discharge Disposition: Home or Self Care (Routine Discharge) 09/05/2024 MyChart Message Enc [facility] Family & Internal Medicine [facility] [address] [place] [phone] Gume Bloom PA Medication side effect 09/05/2024 Travel 08/30/2024 3:00 PM WIRELESS NETWORK ENGINEER Office Visit [facility] Medical Group Orthopedic & Sports Medicine - [place] [address] [place] [address] Memo Amor MD Follow Up (New problem hand pain) 08/30/2024 Scan [facility] INFO SRVCS Scanned, [facility] 08/30/2024 MyChart Message Enc [facility] & [facility] - [place] [address] [place] [address] Memo Amor MD Splint question 08/30/2024 Travel 08/30/2024 Orders Only [facility] Medical [facility] Orthopedic & Sports Medicine - [place] [address] [place] [address] Memo Amor MD 08/29/2024 Scan [facility] INFO SRVCS Scanned, Doc [facility] 08/23/2024 9:27 AM WIRELESS NETWORK ENGINEER - 08/23/2024 11:59 PM WIRELESS NETWORK ENGINEER Hospital Encounter [facility] Ultrasound [address] [place] [address] Alexander Perez MD Discharge Disposition: Home or Self Care (Routine Discharge) 08/23/2024 8:00 AM WIRELESS NETWORK ENGINEER Office Visit [facility] [id number] [place] [phone] Gume Bloom PA Follow Up (2 month follow up); Depression; Anxiety; Hand Pain (Pt c/o right hand pain X 1 month) 08/23/2024 Scan [facility] INFO [facility] Scanned, [facility] 08/23/2024 Travel 08/19/2024 12:45 PM WIRELESS NETWORK ENGINEER Office Visit [facility] [id number] [place] [phone] Prasad Ambrosio MD Lanter, Megan N, PA Hypertension (yearly); Palpitations 08/13/2024 11:10 AM WIRELESS NETWORK ENGINEER - 08/13/2024 11:59 PM WIRELESS NETWORK ENGINEER Hospital Encounter [facility] Diagnostic Imaging [address] [place] [phone] [place] MD Discharge Disposition: Home or Self Care (Routine Discharge) 08/13/2024 Travel 08/09/2024 Scan [facility] INFO [facility] Scanned, [facility] 08/05/2024 Scan [facility] INFO [facility] Scanned, [facility] 07/22/2024 9:05 AM WIRELESS NETWORK ENGINEER - 07/22/2024 11:18 AM WIRELESS NETWORK ENGINEER Emergency [facility] Emergency Room [address] [place] [phone] Radha Eli MD Urinary Symptoms Discharge Disposition: Home or Self Care (Routine Discharge) 07/22/2024 Travel 07/20/2024 3:18 PM WIRELESS NETWORK ENGINEER - 07/20/2024 11:59 PM WIRELESS NETWORK ENGINEER Hospital Encounter [facility] Laboratory [address] [place] [address] Gume Bloom PA Discharge Disposition: Home or Self Care (Routine Discharge) 07/20/2024 Travel 07/20/2024 MyChart Message Enc [facility] Family & Internal [address] [place] [address] Gume Bloom PA Still having uti symptoms from Last 3 Months Immunizations Name Administration Dates Next Due Dtp 03/06/1992, 9,03/25/1988, 987,1987 Flucelvax 2 YRS+ (Multi-Dose Vial) 07/24/2020, Hepatitis B Pediatric 01/02/1997,08/10/1996,06/24 Influenza Adult (Generic) 06/25/2023,,07/24/2020, 020,07/26/2019 MMR 03/06/1992,07/25/1988 MODERNA COVID-19 (12+) MRNA, LNP-S, PF, 100 MCG/ 0.5 ML DOSE 09/19/2020,08/22/2020 MODERNA COVID-19 (LUMBER CH[employer] OFFBEARER KENY PAULY), MRNA, LNP-S, PF, 50 MCG/ 0.25 ML DOSE 08/01/2021 Opv 03/06/1992, 9,1987, 987 Polio Opv (Generic) 03/06/1992, 9,1987, 987 Td 12/14/2002 Tdap (Generic) 09/04/2017 Family History Medical History Relation Comments Lung Disease Brother 1 Asthma Brother 2 Asthma Father Cancer Father Depression Father Diabetes Father Heart Disease Father Hypertension Father Kidney Cancer Father Kidney Disease Father Lung Disease Father Mental Health Father Stent Cardiac Father No Known Problems Maternal Aunt Hypertension Maternal Grandfather Open Heart Maternal Grandfather Hypertension Maternal Grandmother No Known Problems Maternal Uncle Alcohol Abuse Mother Arthritis Mother Depression Mother Early Mother Heart Attack Mother Heart Disease Mother Hypertension Mother Mental Health Mother Miscarriages / Stillbirths Mother Rheumatoid Arthritis Mother Stent Cardiac Mother Stroke Mother Vision loss Mother Cancer Paternal Aunt Cervical Depression Paternal Aunt Cancer Paternal Grandfather Heart Disease Paternal Grandfather Hypertension Paternal Grandfather Lung Cancer Paternal Grandfather Open Heart Paternal Grandfather Heart Disease Paternal Grandmother Hypertension Paternal Grandmother Open Heart Paternal Grandmother Heart Disease Paternal Uncle 1 Kidney Disease Paternal Uncle 2 No Known Problems Sister Relation Status Comments Brother 1 Brother 2 Father Alive Maternal Aunt Maternal Grandfather Maternal Grandmother Maternal Uncle Mother Paternal Aunt Paternal Grandfather Paternal Grandmother Paternal Uncle 1 Paternal Uncle 2 Sister Social History Tobacco Use Types Packs/Day Years Used Date Smoking Tobacco: Never Smokeless Tobacco: Never Tobacco Cessation:Counseling Given: No Comments:not a smoker Alcohol Use Standard Drinks/Week Comments Yes 0 (1 standard drink = 0.6 oz pur e alcohol) SOCIALLY AUDIT-C Answer Date Recorded Frequency of Alcohol Consumption Never 03/16/2019 Average Number of Drinks Not on file 019 Frequency of Binge Drinking Not on file 02/22 PHQ-2 Answer Date Recorded Patient Health Questionnaire-2 Score 4 09/21/2024 Comments No Sex and Gender Information Value Date Recorded Sex Assigned at Female 05/04/2019 4:40 PM CDT Legal Sex Female 9:06 PM CDT Gender Identity Female 05/04/2019 4:40 PM CDT Sexual Orientation Straight 05/04/2019 4: 40 PM CDT Travel History Travel Start Travel End [facility] 10/02/2024 10/10/2024 Last Filed Vital Signs Vital Sign Reading Time Taken Comments Blood Pressure 151/80 10/10/2024 5:12 AM WIRELESS NETWORK ENGINEER Pulse 62 10/10/2024 5:12 AM WIRELESS NETWORK ENGINEER Temperature 36.2 C (97.2 F) 10/10/2024 5:12 AM WIRELESS NETWORK ENGINEER Respiratory Rate 18 10/10/2024 5:12 AM WIRELESS NETWORK ENGINEER Oxygen Saturation 100% 10/10/2024 5:12 AM WIRELESS NETWORK ENGINEER Inhaled Oxygen Concentration - - Weight 134.3 kg (296 lb) 10/10/2024 2:15 AM WIRELESS NETWORK ENGINEER Height 157.5 cm (5' 2 ) 10/10/2024 2:15 AM WIRELESS NETWORK ENGINEER Body Mass Index 54.14 10/10/2024 2:15 AM WIRELESS NETWORK ENGINEER Plan of Treatment Upcoming Encounters Date Type Department Care Team (Late st Contact Info) Description 11/22/2024 7:40 AM CDT Office Visit [facility] Medical Group Family & Internal Medicine [facility] [address] [place] [phone] [place] [id number] [place] [phone] 09/01/2025 9:15 AM WIRELESS NETWORK ENGINEER [facility] [address] [place] [phone] Prasad Ambrosio MD Three [facility]. [facility] [address] [place] [address] Health Maintenance Due Date Last Done Comments Pneumococcal Vaccine: Pediatrics (0 to 5 Years) and At-Risk Patients (6 to 64 Years) (1 of 2 - PCV) 1993 Annual Physical 01/14/2024 01/13/2023 Cervical Cancer Screening Pap Smear (Age 30 to 64) Every 3 Years 02/15/2024 02/14/2021 COVID-19 Vaccine ( season) 2024 08/01/2021, 09/19/2020, 08/22/2020 Influenza Adult (#1) 2024 06/25/2023, 06/12/2021, 07/24/2020, Additional history exists Cervical Cancer Screening Pap with HPV Testing (Age 30 to 64) Every 5 Years 02/14/2026 02/14/2021 Cervical Cancer Screening with HPV 02/14/2026 DTaP, Tdap and Td Vaccines (3 - Td or Tdap) 09/04/2027 09/04/2017, 12/14/2002, 03/06/1992, Additional history exists Hepatitis B Vaccines Completed 01/02/1997, 08/10/1996, 07/08/1996 Hepatitis C Completed 08/14/2023 PHQ-2 (Physician Te[place]) Completed 09/21/2024 HPV Vaccines Aged Out No longer eligi ble based on patient's age to complete this topic Meningococcal B Vaccine Aged Out No l onger eligible based on patient's age to complete this topic Meningococcal Vaccine Aged Out No scott rogerio eligible based on patient's age to complete this topic RSV Immunizations Under 20 Months Aged Out No longer eligible based on patient's age to complete this topic Procedures Procedure Name Priority Date/Time Associated Diagnosis Comments CT ABD+PEL KIDNEY STONE STAT 10/10/2024 3:35 AM WIRELESS NETWORK ENGINEER CHORIONIC GONADOTROPIN HCG QL STAT 10/10/2024 2:43 AM WIRELESS NETWORK ENGINEER LIPASE STAT 10/10/2024 2:43 AM WIRELESS NETWORK ENGINEER COMPREHENSIVE METABOLIC PANEL STAT 10/10/2024 2:43 AM WIRELESS NETWORK ENGINEER CBC W/DIFF AUTOMATED STAT 10/10/2024 2:43 AM WIRELESS NETWORK ENGINEER LIPID PANEL Routine 09/15/2024 7:26 AM WIRELESS NETWORK ENGINEER Hyperlipidemia, unspecified hyperlipidemia type Low magnesium level COMPREHENSIVE METABOLIC PANEL Routine 09/15/2024 7:26 AM WIRELESS NETWORK ENGINEER Hypothyroidism, unspecified type Hyperlipidemia, unspecified hyperlipidemia type CBC W/DIFF AUTOMATED Routine 09/15/2024 7:17 AM WIRELESS NETWORK ENGINEER Bariatric surgery status Idiopathic steatorrhea (HHS/HCC) COMPREHENSIVE METABOLIC PANEL Routine 09/15/2024 7:17 AM WIRELESS NETWORK ENGINEER Bariatric surgery status Idiopathic steatorrhea (HHS/HCC) IRON SAT PANEL (IRON,IBC,%SAT) Routine 09/15/2024 7:17 AM WIRELESS NETWORK ENGINEER Bariatric surgery status Idiopathic steatorrhea (HHS/HCC) MAGNESIUM Routine 09/15/2024 7:17 AM WIRELESS NETWORK ENGINEER Bariatric surgery status Idiopathic steatorrhea (HHS/HCC) PREALBUMIN Routine 09/15/2024 7:17 AM WIRELESS NETWORK ENGINEER Bariatric surgery status Idiopathic steatorrhea (HHS/HCC) VITAMIN B12 / FOLATE Routine 09/15/2024 7:17 AM WIRELESS NETWORK ENGINEER Bariatric surgery status Idiopathic steatorrhea (HHS/HCC) VITAMIN D, 25 OH Routine 09/15/2024 7:17 AM WIRELESS NETWORK ENGINEER Bariatric surgery status Idiopathic steatorrhea (HHS/HCC) VITAMIN B1 THIAMINE Routine 09/15/2024 7 :17 AM WIRELESS NETWORK ENGINEER Bariatric surgery status Idiopathic steatorrhea (HHS/HCC) URINE BACTERIA CULTURE Routine 7:13 AM WIRELESS NETWORK ENGINEER Urine WBC increased Hematuria OXR RT HAND M3V Routine 08/30/2024 3:01 PM WIRELESS NETWORK ENGINEER Pain of right hand US RETROPERITONEAL COMP Routine 08/23/2024 11:54 AM WIRELESS NETWORK ENGINEER Left flank pain XR ABD KUB ARINA 08/13/2024 11:30 AM WIRELESS NETWORK ENGINEER Calculus, kidney CBC W/DIFF AUTOMATED STAT 07/22/2024 10:07 AM WIRELESS NETWORK ENGINEER BASIC METABOLIC PANEL STAT 07/22/2024 10:07 AM WIRELESS NETWORK [address]ER CT ABD+PEL WO CON STAT 07/22/2024 9:4 8 AM WIRELESS NETWORK ENGINEER CHLAMYDIA GC RNA STAT 07/22/2024 9:24 AM WIRELESS NETWORK ENGINEER URINE BACTERIA CULTURE STAT 9:24 AM WIRELESS NETWORK ENGINEER TEST URINE STAT 07/22/2024 9:24 AM WIRELESS NETWORK ENGINEER URINALYSIS, AUTO, COMPLETE STAT 07/22/2024 9:24 AM WIRELESS NETWORK ENGINEER URINE BACTERIA CULTURE Routine 4 3:19 PM WIRELESS NETWORK ENGINEER Dysuria Recurrent UTI URINALYSIS MICRO ONLY Routine 07/20/2024 3:19 PM WIRELESS NETWORK ENGINEER HC URINALYSIS AUTO W/O MICRO Routine 07/20/2024 3:19 PM WIRELESS NETWORK ENGINEER Dysuria Recurrent UTI HEPATITIS PANEL,ACUTE Routine 08/14/2023 2:48 PM WIRELESS NETWORK ENGINEER Inflammatory arthritis HPV MRNA E6/E7 Routine 02/14/2021 3:15 PM CDT CYTOPATH CERV/VAG THIN LAYER Routine 02/14/2021 12:00 AM CDT from Last 3 Months or Most Recently Relevant to Health Maintenance Results * CT ABD+PEL KIDNEY STONE (10/10/2024 3:35 AM WIRELESS NETWORK ENGINEER) Anatomical Region Laterality Modality Abdomen Computed Tomogra phy 10/10/2024 3:38 AM WIRELESS NETWORK ENGINEER Impressions 10/10/2024 3:41 AM WIRELESS NETWORK ENGINEER IMPRESSION: There is mild to moderate left hydronephrosis resulting from a 7 mm calculus in the proximal left ureter. Referred By: Interpreted By: Huseyin Saldivar MD, 10/10/2024 3:38 AM Narrative 10/10/2024 3:41 AM WIRELESS NETWORK ENGINEER [facility] [address] [place] [address] Examination: CT ABD+PEL KIDNEY STONE Exam time: 10/10/2024 2:26 AM INDICATION: Back pain with nausea and diarrhea for 6 days COMPARISON: CT abdomen and pelvis 07/22/2024 TECHNIQUE: Axial CT images of the abdomen and pelvis were obtained with no contrast. Subsequent coronal and sagittal reformatted sequences are created for evaluation. A dose lowering technique was used for this procedure, which may include, but is not limited to, dose reduction technique, automated exposure control, the use of iterative reconstruction, and ALARA (As Low As Reasonably Achievable)/Image Gently techniques. FINDINGS: The visualized lung bases are clear. There are postsurgical changes of the stomach. The liver and spleen are normal in size and contour. No cholelithiasis. No peripancreatic fluid. No adrenal mass. There is mild to moderate left hydronephrosis resulting from a 7 mm calculus in the proximal left ureter. There is no calculus in the urinary bladder. The appendix is normal. No bowel obstruction or free intraperitoneal air. No acute osseous abnormality. Procedure Note Huseyin Saldivar MD - 10/10/2024 [facility] [address] [place] [id number] Examination: CT ABD+PEL KIDNEY STONE Exam time: 10/10/2024 2:26 AM INDICATION: Back pain with nausea and diarrhea for 6 days COMPARISON: CT abdomen and pelvis 07/22/2024 TECHNIQUE: Axial CT images of the abdomen and pelvis were obtained with nocontrast. Subsequent coronal and sagittal reformatted sequences arecreated for evaluation. A dose lowering technique was used for thisprocedure, which may include, but is not limited to, dose reductiontechnique, automated exposure control, the use of iterativereconstruction, and ALARA (As Low As Reasonably Achievable)/Image Gentlytechniques. FINDINGS: The visualized lung bases are clear. There are postsurgicalchanges of the stomach. The liver and spleen are normal in size andcontour. No cholelithiasis. No peripancreatic fluid. No adrenal mass.There is mild to moderate left hydronephrosis resulting from a 7 mmcalculus in the proximal left ureter. There is no calculus in the urinarybladder. The appendix is normal. No bowel obstruction or freeintraperitoneal air. No acute osseous abnormality. IMPRESSION: There is mild to moderate left hydronephrosis resulting from a7 mm calculus in the proximal left ureter. Referred By: Interpreted By: Huseyin Saldivar MD, 10/10/2024 3:38 AM us Sherif Atkins DO CT Final Res ult * (ABNORMAL) COMPREHENSIVE METABOLIC PANEL (10/10/2024 2:43 AM WIRELESS NETWORK ENGINEER) Only the most recent of3 resultswithin the time period is included. GLUCOSE 115(H) 70 - 99 MG/DL 10/10/2024 3:13 AM WIRELESS NETWORK ENGINEER [facility] BUN 15 7 - 18 MG/DL 10/10/2024 3:13 AM [facility] CREATININE S/P/B 1.22(H) 0.55 - 1.02 MG/DL 10/10/2024 3:13 AM [facility] SODIUM S/P/B 142 136 - 145 MMOL/L 10/10/2024 3:13 AM [facility] POTASSIUM S/P/B 3.8 3.5 - 5.1 MMOL/L 10/10/2024 3:13 AM [facility] CHLORIDE S/P/B 106 100 - 108 MMOL/L 10/10/2024 3:13 AM [facility] CO2 22.5 21 - 32 MMOL/L 10/10/2024 3:13 AM [facility] CALCIUM S/P/B 9.0 8.5 - 10.1 MG/DL 10/10/2024 3:13 AM [facility] BILIRUBIN TOTAL S/P/B 0.3 0.2 - 1.2 MG/DL 10/10/2024 3:13 AM [facility] TOTAL PROTEIN S/P/B 6.7 6.4 - 8.2 G/DL 10/10/2024 3:13 AM [facility] ALBUMIN S/P/B 3.3(L) 3.4 - 5.0 G/DL 10/10/2024 3:13 AM [facility] AST 15 15 - 37 U/L 10/10/2024 3:13 AM [facility] ALT 18 14 - 55 U/L 10/10/2024 3:13 AM [facility] ALKALINE PHOSPHATASE S/P/B 63 50 - 136 U/L 10/10/2024 3:13 AM [facility] ANION GAP 13.5 5 - 15 MMOL/L 10/10/2024 3:13 AM [facility] BUN CREATININE RATIO 12.3 6 - 26 10/10/2024 3:13 AM [facility] A/G RATIO 1.0 1.0 - 2.0 RATIO 10/10/2024 3:13 AM [facility] GFR ESTIMATE 59(L) >90 ML/MIN/1.7 3 M2 10/10/2024 3:13 AM [facility] Comment: NOTE: eGFR is not calculated for patients <18 years of age. This is an estimated GFR calculation using the new CKD EPI creatinine equation without race and so does not require a correction factor for race. This estimated GFR should not be used for calculating drug doses. 10/10/2024 2:43 AM WIRELESS NETWORK ENGINEER [facility] LABORATORY Final Res ult [facility] [address] [place] [address], [place] [phone] * CHORIONIC GONADOTROPIN HCG QL (10/10/2024 2:43 AM WIRELESS NETWORK ENGINEER) PREG SCREEN-SERUM NEGATIVE NEGATIVE 10/10/2024 3:22 AM [facility] 10/10/2024 2:43 AM WIRELESS NETWORK ENGINEER [facility] LABORATORY Final Res ult [facility] [address] [place] [address], [place] [phone] * (ABNORMAL) CBC W/DIFF AUTOMATED (10/10/2024 2:43 AM WIRELESS NETWORK ENGINEER) Only the most recent of3 resultswithin the time period is included. WBC 7.84 4.4 - 11.0 x10'3/uL 10/10/2024 3:25 AM [facility] RBC 4.06(L) 4.50 - 5.10 x10'6/uL 10/10/2024 3:25 AM [facility] HGB 12.8 12.3 - 15.3 G/DL 10/10/2024 3:25 AM [facility] HCT 37.1 35.9 - 44.6 % 10/10/2024 3:25 AM [facility] MCV 91.4 80.0 - 96.0 FL 10/10/2024 3:25 AM [facility] MCH 31.5(H) 25.3 - 30.9 PG 10/10/2024 3:25 AM [facility] MCHC 34.5(H) 31.0 - 34.1 G/DL 10/10/2024 3:25 AM [facility] RDW 12.5 12.4 - 15.1 % 10/10/2024 3:25 AM [facility] PLT 277 151 - 353 x10'3/uL 10/10/2024 3:25 AM [facility] MPV 9.7 9.6 - 12.0 FL 10/10/2024 3:25 AM [facility] RBC MORPHOLOGY NORMAL 10/10/2024 3:25 AM [facility] PLT MORPH. NORMAL 10/10/2024 3:25 AM [facility] WBC MORPHOLOGY NORMAL 10/10/2024 3:25 AM [facility] LYMPHOCYTES % 47.3(H) 15.8 - 45.0 % 10/10/2024 3:25 AM [facility] NEUTROPHILS % 42.3 42.1 - 71.9 % 10/10/2024 3:25 AM [facility] MONOCYTES % 7.8 5.7 - 12.5 % 10/10/2024 3:25 AM [facility] EOSINOPHILS 1.9 0.0 - 5.6 % 10/10/2024 3:25 AM [facility] BASOPHILS 0.4 0.0 - 1.3 % 10/10/2024 3:25 AM WIRELESS NETWORK ENGINEER [facility] ABS. NEUTROPHILS 3.32 1.40 - 6.00 x10'3/uL 10/10/2024 3:25 AM [facility] IMMATURE GRANS % 0.3 0.0 - 0.5 % 10/10/2024 3:25 AM WIRELESS NETWORK ENGINEER [facility] ABS. LYMPHOCYTES 3.71 0.80 - 4.70 x10'3/uL 10/10/2024 3:25 AM WIRELESS NETWORK ENGINEER [facility] 10/10/2024 2:43 AM WIRELESS NETWORK ENGINEER [facility] Final Res ult Performing Organization Address [facility]/ZIP Co de Phone Number [facility] [address] [place] [address], [place] [phone] * LIPASE (10/10/2024 2:43 AM WIRELESS NETWORK ENGINEER) LIPASE 27 16 - 77 UNITS/L 10/10/2024 3:13 AM [facility] 10/10/2024 2:43 AM WIRELESS NETWORK ENGINEER [facility] LABORATORY Final Res ult Performing Organization Address [facility]/ZIP Co de Phone Number [facility] [address] [place] [address], [place] [phone] * (ABNORMAL) LIPID PANEL (09/15/2024 7:26 AM WIRELESS NETWORK ENGINEER) CHOLESTEROL 211(H) <200.0 MG/DL 09/15/2024 8:16 AM [facility] TRIGLYCERIDES 163(H) <150 MG/DL 09/15/2024 8:16 AM WIRELESS NETWORK ENGINEER [facility] HDL 65 >40.0 MG/DL 09/15/2024 8:16 AM [facility] LDL (CALCULATED) 113(H) <100 MG/DL 09/15/2024 8:16 AM [facility] NON HDL CHOLESTEROL 146(H) <130 MG/DL 09/15/2024 8:16 AM [facility] CHOL/HDL RATIO 3.2 0.0 - 4.5 09/15/2024 8:16 AM [facility] VLDL CALCULATION 33 5 - 55 MG/DL 09/15/2024 8:16 AM [facility] LIPID INTERPRETATION 09/15/2024 8:16 AM [facility] Comment: [facility] REPORT RECOMMENDATIONS: ADULT CHILD LOW RISK: CHOLESTEROL <200 <170 TRIGLYCERIDE <150 --- HDL >=60 --- LDL <100 <110 BORDERLINE: CHOLESTEROL 200-239 170-199 TRIGLYCERIDE 150-199 --- HDL 40-59 --- LDL 100-159 110-129 HIGH RISK: CHOLESTEROL >=240 >=200 TRIGLYCERIDE >=200 --- HDL <40 --- LDL >=160 >=130 09/15/2024 7:26 AM WIRELESS NETWORK ENGINEER Lucy Phlilips PA-C LABORATORY Final Result Performing Organization Address City/State/[facility] Co de Phone Number [facility] [address] [place] [address], * (ABNORMAL) VITAMIN B12 / FOLATE (09/15/2024 7:17 AM WIRELESS NETWORK ENGINEER) VITAMIN B12 S/P/B 1,804(H) 193 - 986 PG/ML 09/15/2024 9:21 AM [facility] FOLATE >20.0 8.6 - 58.9 NG/ML 09/15/2024 9:21 AM WIRELESS NETWORK ENGINEER [facility] 09/15/2024 7:17 AM WIRELESS NETWORK ENGINEER Marika Myles [employer] LABORATORY Final Resu lt Performing Organization Address [facility]/ZIP Co de Phone Number [facility] [address] [place] [address], [place] [phone] * IRON SAT PANEL (IRON,IBC,%SAT) (09/15/2024 7:17 AM WIRELESS NETWORK ENGINEER) IRON 83 50 - 170 MCG/DL 09/15/2024 8:12 AM WIRELESS NETWORK ENGINEER [facility] IRON BINDING CAPACITY 343 250 - 450 MCG/DL 09/15/2024 8:12 AM WIRELESS NETWORK ENGINEER [facility] IRON SATURATION 24 20 - 55 % 8:12 AM WIRELESS NETWORK ENGINEER [facility] 09/15/2024 7:17 AM WIRELESS NETWORK ENGINEER Marika Myles [facility] LABORATORY Final Resu lt Performing Organization Address [facility]/ZIP Co de Phone Number [facility] [address] [place] [address], [place] [phone] * PREALBUMIN (09/15/2024 7:17 AM WIRELESS NETWORK ENGINEER) PREALBUMIN 28 17 - 34 mg/dL 09/19/2024 7:41 AM WIRELESS NETWORK ENGINEER [facility] Comment: Test Performed by Cornell Celaya, [facility], [address] [place] [address] Alberto Vázquez M.D., Ph.D., Director of Laboratories , [facility] [id number] 09/15/2024 7:17 AM WIRELESS NETWORK ENGINEER Marika Myles [employer] LABORATORY Final Resu lt Performing Organization Address [facility]/ZIP Co de Phone Number [facility] [address] [place], [place] , [place] [phone] * VITAMIN B1 THIAMINE (09/15/2024 7:17 AM WIRELESS NETWORK ENGINEER) VITAMIN B1 S/P/B 28 8 - 30 nmol/L 09/22/2024 5:05 AM WIRELESS NETWORK ENGINEER [facility] Comment: Vitamin supplementation within 24 hours prior to blood draw may affect the accuracy of the results. This test was developed and its analytical performance characteristics have been determined by [facility] [place], [place]. It has not been cleared or approved by the U.S. Food and Drug Administration. This assay has been validated pursuant to the CLIA regulations and is used for clinical purposes. Test Performed by [facility], [facility], [address] [place] [address] Alberto Vázquez M.D., Ph.D., Director of Laboratories , [employer] [id number] 09/15/2024 7:17 AM WIRELESS NETWORK ENGINEER Marika Myles [facility] LABORATORY Final Resu lt Performing Organization Address [facility] Co de Phone Number [facility] [address] [place], [place] , [place] [phone] * VITAMIN D, 25 [place] (09/15/2024 7:17 AM WIRELESS NETWORK ENGINEER) VITAMIN D 25 HYDROXY S/P/B 48 30 - 100 NG/ML 09/15/2024 8:58 AM WIRELESS NETWORK ENGINEER [facility] Comment: INTERPRETATION DEFICIENT <20 INSUFFICIENT 20-29 SUFFICIENT 30-100 09/15/2024 7:17 AM WIRELESS NETWORK ENGINEER Marika Myles [facility] LABORATORY Final Resu lt Performing Organization Address City/[facility]/ZIP Co de Phone Number [facility] [address] [place] [address], [place] [phone] * MAGNESIUM (09/15/2024 7:17 AM WIRELESS NETWORK ENGINEER) MAGNESIUM 1.9 1.8 - 2.4 MG/DL 09/15/2024 8:14 AM WIRELESS NETWORK ENGINEER [facility] 09/15/2024 7:17 AM WIRELESS NETWORK ENGINEER us Marika Myles [employer] LABORATORY Final Resu lt [facility] [address] [place] [address], [place] [phone] * URINE BACTERIA CULTURE (09/15/2024 7:13 AM WIRELESS NETWORK ENGINEER) Only the most recent of3 resultswithin the time period is included. SPEC DESCRIPTION URINE CLEAN CATCH 09/15/2024 7:13 AM WIRELESS NETWORK ENGINEER [facility] SPECIAL REQUESTS NO SPECIAL REQUEST 09/15/2024 7:13 AM [facility] CULTURE RESULT POLYMICROBIAL GROWTH CONSISTENT WITH NORMAL GENITAL DRU. SUSCEPTIBILITIES NOT ROUTINELY PERFORMED. UPON FURTHER INCUBATION 09/17/2024 8:51 AM WIRELESS NETWORK ENGINEER [facility] URINE SPECIMEN OBTAINED BY CLEAN CATCH PROCEDURE / Unknown 09/15/2024 7:13 AM WIRELESS NETWORK ENGINEER 09/15/2024 9:20 AM WIRELESS NETWORK ENGINEER us Lucy Phillips PAVladimir MICROBIOLOGY - GENERAL ORDERA BLES Final Result [facility] [address] [place] [address], [place] [phone] [facility] [address] [place] [address], [place] [phone] * OXR RT HAND M3V (08/30/2024 3:01 PM WIRELESS NETWORK ENGINEER) Anatomical Region Laterality Modality Radiographic Nataliia ging Narrative 09/22/2024 8:09 AM WIRELESS NETWORK ENGINEER X-ray review: Alignment within normal limits, No gross deformities, no soft tissue abnormalities, lesions or gas. No bony tumors or lesions. No acute fracture, no significant arthritic changes. us Memo Amor MD GENERAL IMAGING Final Result * US RETROPERITONEAL COMP (08/23/2024 11:54 AM WIRELESS NETWORK ENGINEER) Anatomical Region Laterality Modality Abdomen Ultrasound 08/24/2024 8:27 AM WIRELESS NETWORK ENGINEER Impressions 08/24/2024 8:30 AM WIRELESS NETWORK ENGINEER IMPRESSION: ===== 1. No acute renal or bladder abnormalities. 2. Calcification in the left kidney seen on prior CT is not appreciated on today's exam. Referred By: ALEXANDER PEREZ Interpreted By: Felix Rae MD, 08/24/2024 8:27 AM Narrative 08/24/2024 8:30 AM WIRELESS NETWORK ENGINEER [facility] [address] [facility] [place] [address] EXAMINATION: Renal and bladder ultrasound EXAM DATE/TIME: 08/23/2024 11:33 AM REASON FOR EXAM: left flank pain Left-sided flank pain. Small left renal stone on recent CT. Frequent UTIs. COMPARISON: CT abdomen and pelvis 07/22/2024 TECHNIQUE: Transabdominal ultrasound evaluation of the bilateral kidneys and bladder was performed for analysis of grayscale and color Doppler imaging characteristics. FINDINGS: Right kidney measures 10.3 x 4.8 x 5.4 cm per the left kidney measures 10.6 x 5.8 x 5.7 cm. No hydronephrosis on either side. Normal flow to both kidneys on Doppler imaging. No convincing abnormal cystic or masslike lesions in either kidney. Somewhat limited evaluation of the kidneys due to underpenetration and body habitus. Visualized portions of the bladder has smooth contours. Both ureteral jets are seen. Calcification seen on prior CT is not resolved on today's exam. ===== Procedure Note Felix Rae MD - 08/24/2024 [facility] [address] [place] [address] EXAMINATION: Renal and bladder ultrasound EXAM DATE/TIME: 08/23/2024 11:33 AM REASON FOR EXAM: left flank pain Left-sided flank pain. Small left renal stone on recent CT. FrequentUTIs. COMPARISON: CT abdomen and pelvis 07/22/2024 TECHNIQUE: Transabdominal ultrasound evaluation of the bilateral kidneysand bladder was performed for analysis of grayscale and color Dopplerimaging characteristics. FINDINGS: Right kidney measures 10.3 x 4.8 x 5.4 cm per the left kidney [id number] x 5.8 x 5.7 cm. No hydronephrosis on either side. Normal flow toboth kidneys on Doppler imaging. No convincing abnormal cystic ormasslike lesions in either kidney. Somewhat limited evaluation of thekidneys due to underpenetration and body habitus. Visualized portions ofthe bladder has smooth contours. Both ureteral jets are seen.Calcification seen on prior CT is not resolved on today's exam. ===== IMPRESSION: ===== 1. No acute renal or bladder abnormalities. 2. Calcification in the left kidney seen on prior CT is not appreciatedon today's exam. Referred By: ALEXANDER PEREZ Interpreted By: Felix Rae MD, 08/24/2024 8:27 AM us Alexander Perez MD ULTRASOUND Final Result * XR ABD KUB (08/13/2024 11:30 AM WIRELESS NETWORK ENGINEER) Anatomical Region Laterality Modality Abdomen Radiographic Nataliia ging 08/13/2024 2:14 PM WIRELESS NETWORK ENGINEER Impressions 08/13/2024 2:16 PM WIRELESS NETWORK ENGINEER IMPRESSION: No definite nephrolithiasis. Referred By: Interpreted By: Yadiel Stephenson MD, 08/13/2024 2:14 PM Narrative 08/13/2024 2:16 PM WIRELESS NETWORK ENGINEER [address] [place] [address] Procedure(s): XR ABD KUB Date of service: 08/13/2024 11:24 AM Provided clinical information: 39 years, Female, kidney stone Procedure and materials: Supine view the abdomen. Comparison studies: None. Findings: Moderate amount of fecal material in the ascending colon. No gas is distention of the large or small bowel is present. No definite radiopaque calculi overlying the kidneys or expected courses of the ureters. The previously noted calculus about the lower pole of the left kidney is not really visualized on this examination. If there is clinical suspicion for persistent CT scan recommended. Procedure Note Yadiel Stephenson MD - 08/13/[address] [place] [address] Procedure(s): XR ABD KUB Date of service: 08/13/2024 11:24 AM Provided clinical information: 39 years, Female, kidney stone Procedure and materials: Supine view the abdomen. Comparison studies: None. Findings: Moderate amount of fecal material in the ascending colon. No gas is distention of the large or small bowel is present. No definite radiopaque calculi overlying the kidneys or expected coursesof the ureters. The previously noted calculus about the lower pole of theleft kidney is not really visualized on this examination. If there isclinical suspicion for persistent CT scan recommended. IMPRESSION: No definite nephrolithiasis. Referred By: Interpreted By: Yadiel Stephenson MD, 08/13/2024 2:14 PM [place] Oconnor MD GENERAL IMAGING Final Re sult * (ABNORMAL) BASIC METABOLIC PANEL (07/22/2024 10:07 AM WIRELESS NETWORK ENGINEER) GLUCOSE 110(H) 70 - 99 MG/DL 07/22/2024 10:24 AM [facility] BUN 14 7 - 18 MG/DL 07/22/2024 10:24 AM [facility] CREATININE S/P/B 0.63 0.55 - 1.02 MG/DL 07/22/2024 10:24 AM [facility] SODIUM S/P/B 140 136 - 145 MMOL/L 07/22/2024 10:24 AM [facility] POTASSIUM S/P/B 4.0 3.5 - 5.1 MMOL/L 07/22/2024 10:24 AM [facility] CHLORIDE S/P/B 105 100 - 108 MMOL/L 07/22/2024 10:24 AM [facility] CO2 25.5 21 - 32 MMOL/L 07/22/2024 10:24 AM [facility] CALCIUM S/P/B 9.0 8.5 - 10.1 MG/DL 07/22/2024 10:24 AM [facility] ANION GAP 9.5 5 - 15 MMOL/L 07/22/2024 10:24 AM [facility] BUN CREATININE RATIO 22.2 6 - 26 07/22/2024 10:24 AM [facility] GFR ESTIMATE >90 >90 ML/MIN/1.7 3 M2 07/22/2024 10:24 AM [facility] Comment: NOTE: eGFR is not calculated for patients <18 years of age. This is an estimated GFR calculation using the new CKD EPI creatinine equation without race and so does not require a correction factor for race. This estimated GFR should not be used for calculating drug doses. 07/22/2024 10:0 7 AM [facility] us Radha Eli MD LABORATORY Final Result [facility] [address] [place] [address], * CT ABD+PEL WO CON (07/22/2024 9:48 AM WIRELESS NETWORK ENGINEER) Anatomical Region Laterality Modality Abdomen Computed Tomogra phy 07/22/2024 9:55 AM WIRELESS NETWORK ENGINEER Impressions 07/22/2024 10:30 AM WIRELESS NETWORK ENGINEER IMPRESSION: 1. No evidence of hydronephrosis. 5 mm nonobstructing calculus in lower pole left kidney. Low volume urinary bladder without gross abnormality. Referred By: Interpreted By: Corby Parker MD, 07/22/2024 9:55 AM Narrative 07/22/2024 10:30 AM WIRELESS NETWORK ENGINEER [facility] [address] [place] [address] EXAMINATION: CT Abdomen and Pelvis without contrast EXAM DATE/TIME: 07/22/2024 9:48 AM REASON FOR EXAM: flank pain, dysuria Pelvic pain. No relief with antibiotic therapy COMPARISON: 07/24/2022 TECHNIQUE: Axial imaging of the abdomen and pelvis was obtained without intravenous contrast. A dose lowering technique was used for this procedure, which may include, but is not limited to, dose reduction technique, automated exposure control, iterative reconstruction, ALARA (As Low As Reasonably Achievable), or Image Gently techniques. FINDINGS: Abdomen: Adrenal glands are unremarkable. Kidneys demonstrate no suspicious lesion or hydronephrosis. 5 mm nonobstructing calculus in lower pole left kidney Stomach and duodenum are unremarkable. Prior gastric surgery. Spleen is unremarkable. Possible gallbladder calculi. No inflammation. Pancreas grossly unremarkable. Hepatic parenchyma are within normal limits with no evidence of intrahepatic biliary dilatation or mass within the limitations of a noncontrast study. No mesenteric lymphadenopathy or evidence of small bowel obstruction. No free fluid or free air. No evidence of retroperitoneal lymphadenopathy. No evidence of an abdominal aortic aneurysm. Scattered fecal material and gas throughout the colon without evidence of mass or dilatation. Appendix not inflamed. Pelvis: Urinary bladder and rectum are unremarkable. Uterus and adnexal regions are age appropriate On bone windows, no evidence of suspicious skeletal lesion or acute compression fracture deformity. Benign bone islands in the pelvis Limited evaluation of the lower thorax demonstrates no acute abnormality. Procedure Note Corby Parker MD - 07/22/2024 [facility] [address] [place] [address] EXAMINATION: CT Abdomen and Pelvis without contrast EXAM DATE/TIME: 07/22/2024 9:48 AM REASON FOR EXAM: flank pain, dysuria Pelvic pain. No relief with antibiotic therapy COMPARISON: 07/24/2022 TECHNIQUE: Axial imaging of the abdomen and pelvis was obtained withoutintravenous contrast. A dose lowering technique was used for this procedure, which may include,but is not limited to, dose reduction technique, automated exposurecontrol, iterative reconstruction, ALARA (As Low As ReasonablyAchievable), or Image Gently techniques. FINDINGS: Abdomen: Adrenal glands are unremarkable. Kidneys demonstrate nosuspicious lesion or hydronephrosis. 5 mm nonobstructing calculus inlower pole left kidney Stomach and duodenum are unremarkable. Prior gastric surgery. Spleen isunremarkable. Possible gallbladder calculi. No inflammation. Pancreas grossly unremarkable. Hepatic parenchyma are within normal limits with no evidence ofintrahepatic biliary dilatation or mass within the limitations of anoncontrast study. No mesenteric lymphadenopathy or evidence of small bowel obstruction. Nofree fluid or free air. No evidence of retroperitoneal lymphadenopathy. No evidence of an abdominal aortic aneurysm. Scattered fecal material and gas throughout the colon without evidence ofmass or dilatation. Appendix not inflamed. Pelvis: Urinary bladder and rectum are unremarkable. Uterus and adnexalregions are age appropriate On bone windows, no evidence of suspicious skeletal lesion or acutecompression fracture deformity. Benign bone islands in the pelvis Limited evaluation of the lower thorax demonstrates no acuteabnormality. IMPRESSION: 1. No evidence of hydronephrosis. 5 mm nonobstructing calculus in lowerpole left kidney. Low volume urinary bladder without gross abnormality. Referred By: Interpreted By: Corby Parker MD, 07/22/2024 9:55 AM us Radha Eli MD CT Final Result * CHLAMYDIA GC RNA (07/22/2024 9:24 AM WIRELESS NETWORK ENGINEER) SPECIMEN SOURCE URINE 9:35 AM WIRELESS NETWORK ENGINEER [facility] CHLAMYDIA PCR NEGATIVE NEGATIVE 07/25/2024 10:57 AM WIRELESS NETWORK ENGINEER [facility] Comment:PERFORMED BY NUCLEIC ACID AMPLIFICATION N.GONORRHOEAE RNA TMA NEGATIVE NEGATIVE 07/25/2024 10:57 AM WIRELESS NETWORK ENGINEER [facility] Comment:PERFORMED BY NUCLEIC ACID AMPLIFICATION URINE SPECIMEN / Unknown 07/22/2024 9:24 AM WIRELESS NETWORK ENGINEER us Radha Eli MD MICROBIOLOGY - GENERAL ORDER HOPE Final Result Performing Organization Address City/[facility]/ZIP Co de Phone Number [facility] [address] [place] [address], [facility] [address] [place] [address], [place] [phone] * TEST URINE (07/22/2024 9:24 AM WIRELESS NETWORK ENGINEER) URINE HCG TEST NEGATIVE NEGATIVE 07/22/2024 9:46 AM WIRELESS NETWORK ENGINEER [facility] Comment: VERY DILUTE URINE SPECIMENS MAY NOT CONTAIN REMOTE SENSING ANALYST LEVELS OF HCG. IF IS STILL SUSPECTED, A SERUM HCG TEST IS RECOMMENDED. URINE SPECIMEN FROM URETHRA / Unknown 07/22/2024 9:24 AM WIRELESS NETWORK ENGINEER us Radha Eli MD URINE ORDERABLES Final Resul t [facility] [address] [place] [address], [place] [phone] * (ABNORMAL) URINALYSIS, AUTO, COMPLETE (07/22/2024 9:24 AM WIRELESS NETWORK ENGINEER) COLOR (U) YELLOW 07/22/2024 9:51 AM [facility] TRANSPARENCY CLEAR 07/22/2024 9:51 AM [facility] SPECIFIC GRAVITY (U) 1.025 1.000 - 1.030 07/22/2024 9:51 AM [facility] U PH 6.0 5.0 - 9.0 07/22/2024 9:51 AM [facility] LEUKOCYTES (U) TRACE(A) NEGATIVE 07/22/2024 9:51 AM [facility] NITRITES NEGATIVE NEGATIVE 07/22/2024 9:51 AM [facility] PROTEIN RANDOM (U) NEGATIVE NEGATIVE 07/22/2024 9:51 AM [facility] GLUCOSE (U) NEGATIVE NEGATIVE 07/22/2024 9:51 AM [facility] KETONES MG/DL (U) NEGATIVE NEGATIVE 07/22/2024 9:51 AM [facility] BILIRUBIN (U) NEGATIVE NEGATIVE 07/22/2024 9:51 AM [facility] BLOOD (U) TRACE(A) NEGATIVE 07/22/2024 9:51 AM [facility] WBC/HPF 0-5 0 - 5 /HPF 07/22/2024 9:51 AM [facility] RBC/HPF 0-5 0 - 5 /HPF 07/22/2024 9:51 AM [facility] EPI/HPF FEW /HPF 07/22/2024 9:51 AM [facility] URINE SPECIMEN OBTAINED BY CLEAN CATCH PROCEDURE / Unknown 07/22/2024 9:24 AM WIRELESS NETWORK ENGINEER us Radha Eli MD URINE ORDERABLES Final Resul t [facility] [address] [place] [address], [place] [phone] * (ABNORMAL) URINALYSIS (07/20/2024 3:19 PM WIRELESS NETWORK ENGINEER) COLOR (U) YELLOW 07/20/2024 4:07 PM [facility] TRANSPARENCY CLEAR 07/20/2024 4:07 PM [facility] SPECIFIC GRAVITY (U) 1.025 1.000 - 1.030 07/20/2024 4:07 PM [facility] U PH 6.0 5.0 - 9.0 07/20/2024 4:07 PM [facility] LEUKOCYTES (U) TRACE(A) NEGATIVE 07/20/2024 4:07 PM [facility] NITRITES NEGATIVE NEGATIVE 07/20/2024 4:07 PM [facility] PROTEIN RANDOM (U) NEGATIVE NEGATIVE 07/20/2024 4:07 PM [facility] GLUCOSE (U) NEGATIVE NEGATIVE 07/20/2024 4:07 PM [facility] KETONES MG/DL (U) NEGATIVE NEGATIVE 07/20/2024 4:07 PM [facility] BILIRUBIN (U) NEGATIVE NEGATIVE 07/20/2024 4:07 PM [facility] BLOOD (U) NEGATIVE NEGATIVE 07/20/2024 4:07 PM [facility] URINE SPECIMEN OBTAINED BY CLEAN CATCH PROCEDURE / Unknown 07/20/2024 3:19 PM WIRELESS NETWORK ENGINEER Gume MATUTE URINE ORDERABLES Final Result [facility] [address] [place] [address], [place] [phone] * URINALYSIS MICRO ONLY (07/20/2024 3:19 PM WIRELESS NETWORK ENGINEER) WBC/HPF 0-5 0 - 5 /HPF 07/20/2024 4:07 PM WIRELESS NETWORK ENGINEER [facility] RBC/HPF NONE SEEN 0 - 5 /HPF 07/20/2024 4:07 PM WIRELESS NETWORK ENGINEER [facility] EPI/HPF FEW /HPF 07/20/2024 4:07 PM WIRELESS NETWORK ENGINEER [facility] 07/20/2024 3:19 PM WIRELESS NETWORK ENGINEER Gume MATUTE URINE ORDERABLES Final Result Performing Organization Address [facility]/ZIP Co de Phone Number [facility] [address] [place] [address], [place] [phone] * HEPATITIS PANEL,ACUTE (08/14/2023 2:48 PM WIRELESS NETWORK ENGINEER) HEPATITIS B SURFACE AG NON-REACTI VE NON-REACTI VE 08/14/2023 8:10 PM WIRELESS NETWORK ENGINEER [facility] HEP B CORE IGM NON-REACTI VE NON-REACTI VE 08/14/2023 8:25 PM WIRELESS NETWORK ENGINEER [facility] HAV IGM NON-REACTI VE NON-REACTI VE 08/14/2023 8:25 PM WIRELESS NETWORK ENGINEER [facility] HEPATITIS C AB NON-REACTI VE NON-REACTI VE 08/14/2023 8:24 PM WIRELESS NETWORK ENGINEER [facility] 08/14/2023 2:48 PM WIRELESS NETWORK ENGINEER Queta Hill MD LABORATORY Final Result Performing Organization Address City/[facility]/ZIP Co de Phone Number [facility] [address] [place] [address], [place] [phone] * HPV MRNA E6/E7 (02/14/2021 3:15 PM CDT) HPV MRNA E6/E7 Not Detected NOT DETECTED 02/20/2021 1:34 PM CDT [facility] Comment: Methodology: Dietary Server Mediated Amplification This assay detects E6/E7 viral messenger RNA (mRNA) from 14 high-risk HPV types (16,18,31,33,35,39,45,51, 52,56,58,59,66,68). For additional information please refer to: http://education.Peak/faq/JGT774z4 (This link is being provided for informational/ educational purposes only.) The analytical performance characteristics of this assay have been determined by [place]. The modifications have not been cleared or approved by the FDA. This assay has been validated pursuant to the CLIA regulations and is used for clinical purposes. Test Performed by [facility], [facility], [address] [place], [place] Alberto Vázuqez M.D., Ph.D., Director of Laboratories , CLIA [id number] 02/14/2021 3:15 PM CDT us Tevin Cherry NP PATHOLOGY/CYTOLOGY ORDERABL ES Final Result [facility] [address] [place], [place] , * Cytopath Cerv/Vag Thin Layer (02/14/2021 12:00 AM CDT) COPATH REPORT [place] [phone] Department of Pathology Pathology Report Gynecological Cytology Report Patient Name: ELISA HILARIO : 1985 (Age: 35) Location: [facility] Gender: F Collected Date: 02/14/2021 [facility] Rec #: [id number] Date Received: 02/15/2021 Date Reported: 02/20/2021 Provider: TEVIN CHERRY REPAIR SERVICER Other Case Numbers [id number] Final Cytologic Diagnosis Satisfactory for evaluation. Endocervical component not identified. Negative for Intraepithelial Lesion or Malignancy. Cellular changes associated with Marina. High-risk HPV mRNA E6/E7 by [employer] assay (performed at [employer]) is reported as NOT DETECTED (see separate report for details). Electronically Signed Out By Marcus Porras Source of Specimen(s) Cervical/Endocervi michael - Thin Prep Clinical History Screening, last Pap 02/02/18 wnl. Z12.4 Date of Last Menstrual Period: 11/22/20 Billing Fee Code(s): A: 55804 [facility] 02/14/2021 02/15/2021 7:0 7 AM CDT Comment:CERVICAL/ENDOCERVICA L - THIN PREP us Tevin Cherry NP PATHOLOGY/CYTOLOGY ORDERABL ES Final Result [facility] [address] [place] [address], from Last 3 Months or Most Recently Relevant to Health Maintenance Insurance R Advance Directives * Full Code (Latest Code Status on File) Date Activated Date Inactivated Comments 10/01/2022 2:05 PM 10/02/2022 12:04 PM Care Teams Hospital Superintendent Relationship Specialty Start Date End Date Lucy Phillips PA-C [address] [address] PCP - General PHYSICIAN AIR VALVE REPAIRER 05/21/23
--- OUTSIDE RECORDS SUMMARY | 2024-10-11 00:56 | XMS_ITS | Encounter Summary ---
Author Organization [facility] Address [address] [place] [address] Care Team Providers Care Instructional Facilitator Name Role Phone Bhakti Weldon Primary Care Provider Yomaira Vega- Primary Care Provider + Lucy Phillips-C Primary Care Provider [phone] Encounter Details Date Type Department Care Team (Latest Contact Info) Description 07/15/2021 [employer] Message Enc [facility] Multispecialty Care - [facility] [address] [facility], [address] [place] [phone] Melissa Escalante APRN 3 [facility] [address] [place] [address] Follow Up/Update Social History Tobacco Use Types [...] CDT Travel History Travel Start Travel End [place] 10/02/2024 10/10/2024 COVID-19 Exposure Response Date Recorded In the last month, have you been in contact with someone who was confirmed or suspected to have Coronavirus / COVID-19? No / Unsure 07/15/2021 3:13 PM INSTRUCTIONAL MANAGER documented as of this encounter Plan of Treatment Upcoming Encounters Date Type Department Care Team (Late st Contact Info) Description 11/22/2024 7:40 AM CDT Office Visit [facility] Family & Internal Medicine [facility] [address] [place] [address] [place] [address] [place], [place] [phone] 09/01/2025 9:15 AM INSTRUCTIONAL MANAGER [facility] [address] [place] [phone] Prasad Ambrosio MD [address] [address] documented as of this encounter Visit Diagnoses Not on filedocumented in this encounter Additional Health Concerns Assessment Noted Time PHQ-9 Depression Total Score: 0 05/01/20 21 2:49 PM CDT documented as of this encounter Care Teams Instructional Facilitator Relationship Specialty Start Date End Date Bhakti Weldon PA PCP - General PHYSICIAN LICENSED SURVEYOR 01/22/19 11/10/22 Yomaira Vega FNP- PCP - General Nurse Practitioner Family 11/11/22 903/15 Lucy Phillips PA-C [address] [place] [address] PCP - General PHYSICIAN LICENSED SURVEYOR 05/21/23 documented as of this encounter
--- OUTSIDE RECORDS SUMMARY | 2024-10-11 00:56 | XMS_ITS | Encounter Summary ---
Author Organization [facility] Address [address] [place] [address] Care Team Providers Care Laundromat Manager Name Role Phone Yomaira Vega- Primary Care Provider + Lucy Phillips PA-C Primary Care Provider [phone] Encounter Details Date Type Department Care Team (Late st Contact Info) Description 02/18/2023 [employer] Message Enc [facility] Medical Group Orthopedic & Sports Medicine - [place] [address] [place], [place] [phone] Memo Amor MD [address] [place], [place] [phone] Symptom question Social History Tobacco Use Types Packs/Day [...] CDT Travel History Travel Start Travel End [facility] [place] 10/02/2024 10/10/2024 COVID-19 Exposure Response Date Recorded In the last 10 days, have yo u been in contact with someone who was confirmed or suspected to have Coronavirus/COVID-19? No / Unsure 01/30/2023 8:11 AM CDT documented as of this encounter Functional Status * RETIRED Are you deaf or do you have serious difficulty hearing Answer Date of Assessment Author Status No 10/01/2022 1:55 PM BUSINESS INTEGRATION MANAGER Activ e * RETIRED Are you blind or do you have serious difficulty seeing, even when wearing glasses? Answer Date of Assessment Author Status No 10/01/2022 1:55 PM BUSINESS INTEGRATION MANAGER Activ e * Do you have serious [...] Description 11/22/2024 7:40 AM CDT Office Visit [facility] Medical Group Family & Internal Medicine [facility] [address] [place] [address] Gume Bloom PA [address] [place] [address] 09/01/2025 9:15 AM BUSINESS INTEGRATION MANAGER Office Visit [facility] [address] [place] [address] Prasad Ambrosio MD [place] [address] [place] [address] documented as of this encounter Visit Diagnoses Not on filedocumented in this encounter Additional Health Concerns Assessment Noted Time PHQ-9 Depression Total Score: 13 023 3:13 PM CDT documented as of this encounter Care Teams Laundromat Manager Relationship Specialty Start Date End Date [facility] PCP - General Nurse Practitioner Family 11/11/22 9/2 03/15 Lucy Phillips, PAChandniC [address] [place] [address] PCP - General PHYSICIAN AIRPLANE PILOT HELPER 05/21/23 documented as of this encounter
--- OUTSIDE RECORDS SUMMARY | 2024-10-11 00:56 | XMS_ITS | Encounter Summary ---
Author Organization [facility] Address [address] [place] [address] Care Team Providers Care Single Stayer Operator Name Role Phone Yomaira Vega- Primary Care Provider + Lucy Phillips PA-C Primary Care Provider [phone] Encounter Details Date Type Department Care Team (Latest Contact Info) Description 03/13/2023 [employer] Message Enc [facility] Group Multispecialty Care - [facility] 3 [facility], [address] [place] [phone] Sonali Castano NP 3 [facility]. [address] [place] [address] appointment question Social History Tobacco Use Types Packs/Day [...] Travel History Travel Start Travel End [facility] 10/02/2024 10/10/2024 documented as of this encounter Functional Status * RETIRED Are you deaf or do you have serious difficulty hearing Answer Date of Assessment Author Status No 10/01/2022 1:55 PM SHANK STAPLER Activ e * RETIRED Are you blind or do you have serious difficulty seeing, even when wearing glasses? Answer Date of Assessment Author Status No 10/01/2022 1:55 PM SHANK STAPLER Activ e * Do you have serious [...] Description 11/22/2024 7:40 AM CDT Office Visit [facility] Family & Internal Medicine [facility] [address] [place] [address] [place] [address] [place] [address] 09/01/2025 9:15 AM SHANK STAPLER [facility] [address] [place] [address] Prasad Ambrosio MD [facility] [address] [place] [address] documented as of this encounter Visit Diagnoses Not on filedocumented in this encounter Additional Health Concerns Assessment Noted Time PHQ-9 Depression Total Score: 13 023 3:13 PM CDT documented as of this encounter Care Teams Single Stayer Operator Relationship Specialty Start Date End Date Yomaira Vega FNP- PCP - General Nurse Practitioner Family 11/11/2204/25 Lucy Phlilips PA-C [address] [facility] [address] [place] [address] PCP - General PHYSICIAN PRICE CHANGER 05/21/23 documented as of this encounter
--- OUTSIDE RECORDS SUMMARY | 2024-10-11 00:56 | XMS_ITS | Encounter Summary ---
Author Organization [facility] Address [address] [place] [address] Care Team Providers Care Electric Meter Technician Name Role Phone Bhakti Weldon Primary Care Provider [phone] Yomaira Vega- Primary Care Provider + Lucy Phillips-C Primary Care Provider [phone] Encounter Details Date Type Department Care Team (Late st Contact Info) Description 07/17/2021 [employer] Message Enc [facility] Multispecialty Care - [address], [address] [place] [phone] [facility] Provider EMG appt Social History Tobacco Use Types Packs/Day Years [...] CDT Travel History Travel Start Travel End [place] 10/02/2024 10/10/2024 COVID-19 Exposure Response Date Recorded In the last month, have you been in contact with someone who was confirmed or suspected to have Coronavirus / COVID-19? No / Unsure 07/15/2021 3:13 PM WEB MACHINE TENDER documented as of this encounter Plan of Treatment Upcoming Encounters Date Type Department Care Team (Late st Contact Info) Description 11/22/2024 7:40 AM CDT Office Visit [facility] Medical Group Family & Internal Medicine - [place] [address] [place] [address] [place] [address] [place] [address] 09/01/2025 9:15 AM WEB MACHINE TENDER [facility] [address] [place] [address] Prasad Ambrosio MD [address] [address] documented as of this encounter Visit Diagnoses Not on filedocumented in this encounter Additional Health Concerns Assessment Noted Time PHQ-9 Depression Total Score: 0 05/01/20 2:49 PM CDT documented as of this encounter Care Teams Electric Meter Technician Relationship Specialty Start Date End Date Bhakti Weldon PA PCP - General PHYSICIAN INDUSTRIAL WORKERS 01/22/19 11/10/22 Yomaira Vega FNP-SHIRA PCP - General Nurse Practitioner Family 11/11/22 903/15 Lucy Phillips PA-C [address] [place] [address] PCP - General PHYSICIAN INDUSTRIAL WORKERS 05/21/23 documented as of this encounter
--- OUTSIDE RECORDS SUMMARY | 2024-10-11 00:56 | XMS_ITS | Encounter Summary ---
Author Organization [facility] Address [address] [place] [address] Care Team Providers Care Executive Assistant Name Role Phone Bhakti Weldon Primary Care Provider [phone] Yomaira VegaP- Primary Care Provider + Lucy Phillips-C Primary Care Provider [phone] Encounter Details Date Type Department Care Team (Late st Contact Info) Description 11/13/2021 Bahut Message Enc [facility] Medical Group Multispecialty Care - [facility] 3 [facility], [address] [place] [phone] Temo Saldaña MD 3 [place] [address] Other Social History Tobacco Use Types Packs/Day [...] suspected to have Coronavirus/COVID-19? No / Unsure 11/07/2021 2:30 PM CDT documented as of this encounter Progress Notes * Carrie Acosta MA - 11/15/2021 9:03 AM CDT Called and rescheduled patient to January 23 at 3:20. Patient states understanding. documented in this encounter Plan of Treatment Upcoming Encounters Date Type Department Care Team (Late st Contact Info) Description 11/22/2024 7:40 AM CDT Office Visit [facility] Medical Group Family & Internal Medicine - [place] [address] [place] [address] [place] [address] [place] [address] 09/01/2025 9:15 AM GROUP CAPTAIN [facility] [address] [place] [address] Prasad Ambrosio MD [address] [address] documented as of this encounter Visit Diagnoses Not on filedocumented in this encounter Additional Health Concerns Assessment Noted Time PHQ-9 Depression Total Score: 0 05/01/20 21 2:49 PM CDT documented as of this encounter Care Teams Executive Assistant Relationship Specialty Start Date End Date Bhakti Weldon PA PCP - General PHYSICIAN PRISM INSPECTOR 01/22/19 11/10/22 [facility] PCP - General Nurse Practitioner Family 11/11/2204/25 Lucy Phillips PA-C [address] [place] [address] PCP - General PHYSICIAN PRISM INSPECTOR 05/21/23 documented as of this encounter
--- OUTSIDE RECORDS SUMMARY | 2024-10-11 00:56 | XMS_ITS | Encounter Summary ---
Author Organization [facility] Address [address] [place] [address] Care Team Providers Care Fur Dyer Name Role Phone Yomaira Vega- Primary Care Provider + Lucy Phillips PA-C Primary Care Provider [phone] Encounter Details Date Type Department Care Team (Late st Contact Info) Description 02/25/2023 [employer] The[employer] Message Enc [facility] Medical Group Orthopedic & Sports Medicine - [place] [address] [place], [place] [phone] Memo Amor MD [address] [place], [place] [phone] Work release Social History Tobacco Use Types Packs/Day Years [...] CDT Travel History Travel Start Travel End [facility] [place] 10/02/2024 10/10/2024 COVID-19 Exposure Response Date [...] Assessment Author Status No 10/01/2022 1:55 PM LUBRICATION TECHNICIAN Activ e * RETIRED Are you blind or do you have serious difficulty seeing, even when wearing glasses? Answer Date of Assessment Author Status No 10/01/2022 1:55 PM LUBRICATION TECHNICIAN Activ e * Do you have serious [...] Description 11/22/2024 7:40 AM CDT Office Visit [facility] Medical Group Family & Internal Medicine [facility] [address] [place] [address] uGme Bloom PA [address] [place] [address] 09/01/2025 9:15 AM LUBRICATION TECHNICIAN Office Visit [facility] [address] [place] [address] Prasad Ambrosio MD [place] [address] [place] [address] documented as of this encounter Visit Diagnoses Not on filedocumented in this encounter Additional Health Concerns Assessment Noted Time PHQ-9 Depression Total Score: 13 023 3:13 PM CDT documented as of this encounter Care Teams Fur Dyer Relationship Specialty Start Date End Date [facility] PCP - General Nurse Practitioner Family 11/11/22 9/2 03/15 Lucy Phillips, PAChandniC [address] [place] [address] PCP - General PHYSICIAN SUPERVISOR PAIRING AND INSPECTING 05/21/23 documented as of this encounter
--- OUTSIDE RECORDS SUMMARY | 2024-10-11 00:56 | XMS_ITS | Encounter Summary ---
Author Organization [facility] Address [address] [place] [address] Care Team Providers Care Recordak Operator Name Role Phone Bhakti Weldon Primary Care Provider [phone] Yomaira VegaP- Primary Care Provider + Lucy Phillips-C Primary Care Provider [phone] Encounter Details Date Type Department Care Team (Late st Contact Info) Description 10/08/2022 Hospital Follow-up Call [facility] [place] [facility] [place] [address] Radha Horton, RN Social History Tobacco Use Types Packs/Day Years [...] Answer Date Recorded Patient Health Questionnaire-2 Score 1 09/22/2022 Comments No Sex and Gender Information Value [...] suspected to have Coronavirus/COVID-19? No / Unsure 10/10/2022 3:32 PM HOTEL RECREATIONAL FACILITIES MANAGER documented as of this encounter Functional Status * RETIRED Are you deaf or do you have serious difficulty hearing Answer Date of Assessment Author Status No 10/01/2022 1:55 PM HOTEL RECREATIONAL FACILITIES MANAGER Activ e * RETIRED Are you blind or do you have serious difficulty seeing, even when wearing glasses? Answer Date of Assessment Author Status No 10/01/2022 1:55 PM HOTEL RECREATIONAL FACILITIES MANAGER Activ e * Do you have serious difficulty walking or climbing stairs? Answer Date of Assessment Author Status No 10/01/2022 1:55 PM HOTEL RECREATIONAL FACILITIES MANAGER Willa Quispe RN Active * Do you have difficulty dressing or bathing? Answer Date of Assessment Author Status No 10/01/2022 1:55 PM HOTEL RECREATIONAL FACILITIES MANAGER Willa Quispe RN Active * Because of [...] [facility] Family [facility] Internal [facility] [address] [place] [address] [place] [address] [place] [address] 09/01/2025 9:15 AM HOTEL RECREATIONAL FACILITIES MANAGER [facility] [address] [place] [address] Prasad Ambrosio MD [facility] [address] [place] [address] documented as of this encounter Visit Diagnoses Not on filedocumented in this encounter Additional Health Concerns Assessment Noted Time PHQ-9 Depression Total Score: 0 05/01/20 21 2:49 PM CDT documented as of this encounter Care Teams Recordak Operator Relationship Specialty Start Date End Date Bhakti Weldon PA PCP - General PHYSICIAN RECORDS MANAGEMENT TECHNICIAN 01/22/19 11/10/22 Yomaira Vega FNP- PCP - General Nurse Practitioner Family 11/11/2204/25 Lucy Phillips PAChandniC [address] [facility] [address] [place] [address] PCP - General PHYSICIAN RECORDS MANAGEMENT TECHNICIAN 05/21/23 documented as of this encounter
--- OUTSIDE RECORDS SUMMARY | 2024-10-11 00:56 | XMS_ITS | Encounter Summary ---
Author Organization [facility] Address [address] [place] [address] Care Team Providers Care Bevel Face Stoner And Polisher Name Role Phone Lucy Phillips PA-C Primary Care Provider [phone] Encounter Details Date Type Department Care Team (Latest Contact Info) Description 10/10/2024 Travel Social History Tobacco Use Types Packs/Day Years [...] CDT Travel History Travel Start Travel End [facility] 10/02/2024 10/10/2024 documented as of this encounter Functional Status * RETIRED Are you deaf or do you have serious difficulty hearing Answer Date of Assessment Author Status No 10/01/2022 1:55 PM RODEO PERFORMER Activ e * RETIRED Are you blind or do you have serious difficulty seeing, even when wearing glasses? Answer Date of Assessment Author Status No 10/01/2022 1:55 PM RODEO PERFORMER Activ e * Do you have serious difficulty walking or climbing stairs? Answer Date of Assessment Author Status No 10/01/2022 1:55 PM RODEO PERFORMER Willa Quispe RN Active * Do you have difficulty dressing or bathing? Answer Date of Assessment Author Status No 10/01/2022 1:55 PM RODEO PERFORMER Willa Quispe RN Active * Because of a physical, mental, or emotional condition, do you have difficulty doing errands alone such as visiting a doctor's office or shopping? Answer Date of Assessment Author Status No 10/01/2022 1:55 PM RODEO PERFORMER Willa Quispe RN Active documented as of this encounter Mental Status * Because of a physical, mental, or emotional condition, do you have serious difficulty concentrating, remembering, or making decisions? Answer Entry Date Author Status No 10/01/2022 1:55 PM RODEO PERFORMER Willa Quispe RN Active documented in this encounter Plan of Treatment Upcoming Encounters Date Type Department Care Team (Late st Contact Info) Description 11/22/2024 7:40 AM CDT Office Visit [facility] Family & Internal Medicine [facility] [address] [place] [address] [place] [address] [place], [place] [phone] 09/01/2025 9:15 AM RODEO PERFORMER [facility] [address] [place] [address] Prasad Ambrosio MD [address] [address] documented as of this encounter Visit Diagnoses Not on filedocumented in this encounter Additional Health Concerns Assessment Noted Time PHQ-9 Depression Total Score: 16 025 8:01 AM RODEO PERFORMER documented as of this encounter Care Teams Bevel Face Stoner And Polisher Relationship Specialty Start Date End Date WrLucy ramirez PA-C [address] [place] [address] PCP - General PHYSICIAN ASSISTANT PROFESSOR OF RADIOLOGY 05/21/23 documented as of this encounter
--- OUTSIDE RECORDS SUMMARY | 2024-10-11 00:56 | XMS_ITS | Referral Summary ---
Author Organization [facility] Address [address] [facility] [place] [address] Care Team Providers Care Health Sciences Program Coordinator Name Role Phone Lucy Phillips PA-C Primary Care Provider [phone] Source Comments [facility],non-owned Affiliates and Associated Physician Practices is amultiple site organization consisting of ambulatory clinics and hospital sitesin [place], [place], [place] and [place]. This disclosure is being madepursuant to the Care Everywhere program and may not contain all information available regarding this patient. Last updated 18.[facility] Allergies Active Allergy Reactions Criticality Noted Date Comments Dog Epithelium Other Medium 05/14/2018 Itchy watery eyes Dust Mite Extract Itching Medium 07/21/2022 Itching eyes and body Grass Pollen(K-O-R-T-Swt Pool) Eye Itching Medium 07/21/2022 Get injection for allgerys Little Animals Plus Itching Medium 07/21/2022 Sometimes breaks out in hives Pollen Extract Other 09/19/2022 Tapentadol Itching,Rash Medium 05/15/2023 Medications * Be aware that medications may not be up to date on this document. Alwaysverify current medications with the patient. Medication Sig Dispensed Refills Start Date End Date Status cetirizine (ZyrTEC ALLERGY) 10 MG gel capsuleIndication s:Insect Bites,Seasonal Allergic Rhinitis Take 1 (one) capsule by mouth once daily Reasons: Hayfever, Insect Bites Active montelukast (Singulair) 10 MG tabletIndications :Seasonal Allergic Rhinitis Take 1 (one) tablet by mouth at bedtime Reasons: Hayfever Active fluticasone propionate (Flonase) 50 MCG/ACT nasal spray [place] 2 (two) sprays into each nostril once daily Active albuterol HFA (Proventil; Ventolin; Proair) 108 (90 Base) MCG/ACT inhaler INHALE 2 PUFFS BY MOUTH EVERY 4 TO 6 HOURS NEEDED AND PER THE ASTHMA ACTION PLAN 06/19/2022 Active levothyroxine (Synthroid) 150 MCG tablet Take 1 (one) tablet by mouth daily before breakfast Active cyclobenzaprine (Flexeril) 5 MG tablet Take 1 (one) tablet by mouth at bedtime 30 tablet 3 05/04/2023 Active MULTIPLE VITAMIN PO Take 1 tablet by mouth once daily Active cyanocobalamin (Vitamin B-12) 1000 MCG tablet Take 1 (one) tablet by mouth once daily Active azaTHIOprine (Imuran) 50 MG tablet Take 1 (one) tablet by mouth once daily 30 tablet 3 08/03/2023 Active DULOXETINE HCL PO Active drospirenone-ethi nyl estradiol (Loryna) 3-0.02 MG tablet Take 1 (one) tablet by mouth once daily Active tocilizumab (Actemra) 162 MG/0.9ML auto-injectorIndi cations:Seronegat nury rheumatoid arthritis (HCC) Inject 0.9 mL subcutaneously every 7 days 3.6 mL 2 11/24/2023 Active Active Problems Problem Noted Date Diagnosed Date Inflammatory arthritis 09/24/2022 Social History Tobacco Use Types Packs/Day Years Used Date Smoking Tobacco: Never Smokeless Tobacco: Never Tobacco Cessation:Counseling Given: Not Answered Alcohol Use Standard Drinks/Week Comments Yes 0 (1 standard drink = 0.6 oz pur e alcohol) socially PHQ-2 Answer Date Recorded PHQ2 TOTAL SCORE 0 09/24/2022 Sex and Gender Information Value Date Recorded Sex Assigned at Female 07/21/2022 8:36 PM SKID STRAPPER Gender Identity Female 07/21/2022 8:36 PM SKID STRAPPER Sexual Orientation Straight 07/21/2022 8: 36 PM SKID STRAPPER Last Filed Vital Signs Vital Sign Reading Time Taken Comments Blood Pressure 136/70 11/04/2023 3:39 PM CDT Pulse 78 11/04/2023 3:39 PM CDT Temperature 36.8 C (98.2 F) 08/03/2023 3:42 PM SKID STRAPPER Respiratory Rate 16 11/04/2023 3:39 PM CDT Oxygen Saturation 99% 11/04/2023 3:39 PM CDT Inhaled Oxygen Concentration - - Weight 128.8 kg (284 lb) 11/04/2023 3:39 PM CDT Height 157.5 cm (5' 2 ) 11/04/2023 3:39 PM CDT Body Mass Index 51.94 11/04/2023 3:39 PM CDT Plan of Treatment Not on file Care Teams Health Sciences Program Coordinator Relationship Specialty Start Date End Date Lucy Phillips PA-C [address] [place] [address] PCP - General 08/03/23
--- OUTSIDE RECORDS SUMMARY | 2024-10-11 00:56 | XMS_ITS | Clinical Summary ---
Author Organization [facility] Address [address] [facility] [place] [address] Care Team Providers Care Chief Passenger Ship Steward/Stewardess Name Role Phone Lucy Phillips PA-C Primary Care Provider [phone] Source Comments [facility],non-owned Affiliates and Associated Physician Practices is amultiple site organization consisting of ambulatory clinics and hospital sitesin [place], [place], [place] and [place]. This disclosure is being madepursuant to the Care Everywhere program and may not contain all information available regarding this patient. Last updated 18.[facility] Allergies Active Allergy Reactions Criticality Noted [...] fluticasone propionate (Flonase) 50 MCG/ACT nasal spray [place] 2 (two) sprays into each nostril once [...] Sex Assigned at Female 07/21/2022 8:36 PM FUNERAL COUNSELOR Gender Identity Female 07/21/2022 8:36 PM FUNERAL COUNSELOR Sexual Orientation Straight 07/21/2022 8: 36 PM FUNERAL COUNSELOR Last Filed Vital Signs Vital Sign Reading Time Taken Comments Blood Pressure 136/70 11/04/2023 3:39 PM CDT Pulse 78 11/04/2023 3:39 PM CDT Temperature 36.8 C (98.2 F) 08/03/2023 3:42 PM FUNERAL COUNSELOR Respiratory Rate 16 11/04/2023 3:39 PM CDT Oxygen Saturation 99% 11/04/2023 3:39 PM CDT Inhaled Oxygen Concentration - - Weight 128.8 kg (284 lb) 11/04/2023 3:39 PM CDT Height 157.5 cm (5' 2 ) 11/04/2023 3:39 PM CDT Body Mass Index 51.94 11/04/2023 3:39 PM CDT Plan of Treatment Health Maintenance Due Date Last Done Comments PAP SMEAR 1987 HIV SCREENING 2002 HEPATITIS C SCREENING 03/25/2005 DTAP/TDAP/TD VACCINES (1 - Tdap) 2006 HEPATITIS B VACCINE (1 of 3 - 19+ 3-dose series) 2006 PNEUMOCOCCAL VACCINE (1 of 2 - PCV) 2006 ZOSTER VACCINE (1 of 2) 2006 COVID-19 VACCINE (4 - season) 2024 08/01/2021, 09/19/2020, 08/22/2020 INFLUENZA VACCINE (#1) 2024 , 06/12/2021, 07/24/2020, Additional history exists DEPRESSION SCREENING 08/24/2024 09/24/2022, 07/21/20 22 HIB VACCINE Aged Out No longer eligi ble based on patient's age to complete this topic HPV VACCINE Aged Out No longer eligi ble based on patient's age to complete this topic MENINGOCOCCAL (Group B) VACCINE Aged Out No longer eligible based on patient's age to complete this topic MENINGOCOCCAL VACCINE Aged Out No scott rogerio eligible based on patient's age to complete this topic Care Teams Chief Passenger Ship Steward/Stewardess Relationship Specialty Start Date End Date Lucy Phillips PA-C [address] [place] [address] PCP - General 08/03/23
--- OUTSIDE RECORDS SUMMARY | 2024-10-11 00:56 | XMS_ITS | Encounter Summary ---
Author Organization [facility] Address [address] [place] [address] Care Team Providers Care Medical Researcher Name Role Phone Yomaira Vega-SHIRA Primary Care Provider + Lucy Phillips PA-C Primary Care Provider [phone] Encounter Details Date Type Department Care Team (Late st Contact Info) Description 02/18/2023 MyChart Message Enc [facility] - [facility] [address] [place] [address] [place] Provider Air Quality Message Social History Tobacco Use Types Packs/Day Years [...] CDT Travel History Travel Start Travel End [facility] 10/02/2024 10/10/2024 COVID-19 Exposure Response Date Recorded [...] Assessment Author Status No 10/01/2022 1:55 PM 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 Answer Date of Assessment Author Status No 10/01/2022 1:55 PM HAND METHOD LASTING MACHINE OPERATOR Activ e * Do you have [...] Description 11/22/2024 7:40 AM CDT Office Visit [facility] Family [facility] [address] [place] [address] [place] [address] [place], [place] [phone] 09/01/2025 9:15 AM HAND METHOD LASTING MACHINE OPERATOR Office Visit [facility] [address] [place] [address] Prasad Ambrosio MD [address] [place] [address] documented as of this encounter Visit Diagnoses Not on filedocumented in this encounter Additional Health Concerns Assessment Noted Time PHQ-9 Depression Total Score: 13 023 3:13 PM CDT documented as of this encounter Care Teams Medical Researcher Relationship Specialty Start Date End Date [facility] PCP - General Nurse Practitioner Family 11/11/2204/25 Lucy Phillips PA-C [address] [address] PCP - General PHYSICIAN REGISTERED NURSE TEACHER 05/21/23 documented as of this encounter
--- OUTSIDE RECORDS SUMMARY | 2024-10-11 00:56 | XMS_ITS ---
Author Organization [facility] Address [address] [place] [address] Care Team Providers Care Patrol Sergeant Sheriff'S Office Name Role Phone Lucy Phillips Primary Care Provider UnavailLexi Barragan Unavailable [phone] Alberto Salmeron Unavailable [phone] REASON FOR VISIT SCIT - Traditional Schedule Allergy immunotherapy Medications Medication SIG (Take, Route, Frequency, Duration) Notes Start Date End Date Status Trelegy Ellipta 200 MCG-62.5 MCG-25 MCG/INH 1 PUFF(S) INHALED ONCE A DAY for 30 DAY(S) *Please review and pick correct strength-formula tion from [employer]Stocks options. If intended option is not shown, discontinue and re-order from Quick Search* 08/29/2021 Not-Taking CONTROL PILL 1 TABLET BY MOUTH DAILY for 30 DAYS *Please review for potential replacement for e-prescription and drug interaction check* Active Famotidine 40 MG 1 tablet Orally 1 hr prior to allergy shot for 30 days 04/11/2024 Active DULoxetine HCl 20 MG 1 cap(s) orally 2 times a day for 30 day(s) Not-Taking Montelukast Sodium 10 MG TAKE 1 TABLET BY MOUTH ONCE DAILY for 90 Active Levothyroxine Sodium 150 MCG 1 tab(s) orally once a day for 30 day(s) Active Multivitamin MULTIPLE VITAMINS 1 CAP(S) ORALLY ONCE A DAY for 30 DAY(S) *Please review and pick correct strength-formula tion from [employer] options. If intended option is not shown, discontinue and re-order from Quick Search* Active STOOL SOFTENER WITH LAXATIVE 50 MG-8.6 MG 2 TAB(S) ORALLY ONCE A DAY (AT BEDTIME) *Please review for potential replacement for e-prescription and drug interaction check* Active Vitamin B-12 250 MCG 1 tab(s) orally once a day for 30 day(s) Not-Taking Minocycline HCl 100 MG 1 cap(s) orally every 12 hours Not-Taking AEROCHAMBER MDI SPACER N/A USER WITH MDI INHALERS BY MOUTH Q4-6 HOURS PRN for 30 DAY(S) *Please review for potential replacement for e-prescription and drug interaction check* Active Actemra ACTPen 162 MG/0.9 ML DIRECTED SUBCUTANEOUSLY *Please review and pick correct strength-formula tion from [employer]Stocks options. If intended option is not shown, discontinue and re-order from WAVE ([employer]) Search* Active Wixela Inhub 500 MCG-50 MCG USE 1 INHALATION BY MOUTH TWICE DAILY *Please review and pick correct strength-formula tion from [employer]Stocks options. If intended option is not shown, discontinue and re-order from Quick Search* Not-Taking PROAIR HFA CFC FREE 90 MCG/INH 2 PUFF(S) INHALED Q4-6 HOURS, PRN AND PER THE ASTHMA ACTION PLAN for 30 DAY(S) *Please review for potential replacement for e-prescription and drug interaction check* Not-Taking Doxycycline Monohydrate 100 MG 1 tab(s) orally 2 times a day Active Cetirizine HCl 10 MG 1 tab(s) orally once a day Active SIT (TRADITIONAL) variable per schedule SC per schedule for to be determined Active PROAIR HFA CFC FREE 90 MCG/INH 2 PUFF(S) INHALED Q4-6 HOURS, PRN AND PER THE ASTHMA ACTION PLAN for 30 DAY(S) *Please review for potential replacement for e-prescription and drug interaction check* Active Flonase Allergy Relief 50 MCG/ACT 2 spray(s) intranasally (avoid nasal septum) once a day Active FLONASE 0.05 mg/inh 2 spray(s) intranasally (avoid nasal septum) once a day Active EpiPen 2-Wally 0.3 mg as directed intramuscularly once for 30 days Active CETIRIZINE 10 mg 1 tab(s) orally once a day Active MONTELUKAST 10 mg 1 tab(s) orally once a day for 90 days Active Encounters Encounter Location Date Provider Diagnosis [facility] [address] [place] [address] 09/22/2024 Alberto Salmeron Allergic rhinitis due to pollen J30.1 ; Allergic rhinitis due to animal (cat) (dog) hair and dander J30.81 ; Other allergic rhinitis J30.89 and Other chronic allergic conjunctivitis H10.45 Assessments Encounter Date Diagnosis (ICD Code) Assessment Notes Treatment Notes Treatment Clinical Notes Section Notes 09/22/2024 Allergic rhinitis due to pollen (ICD-10 - J30.1) 09/22/2024 Allergic rhinitis due to animal (cat) (dog) hair and dander (ICD-10 - J30.81) 09/22/2024 Other allergic rhinitis (ICD-10 - J30.89) 09/22/2024 Other chronic allergic conjunctivitis (ICD-10 - H10.45) Plan Of Treatment Next Appt Details Follow Up: 1 Week, Reason: Provider Name:Lexi Eddy , 10/17/2024 03:00:00 PM, [address] [place] [address], [id number], Progress Notes * LELANDElisa KITCHENDOB:1984 (39 yo F)Acc No.[id number]:09/22/2024 SCIT-Aeroallergen Patient: Elisa BARRY Provider: Aracelis Salmeron MD :1985 A ge:39 Y S ex:Female Date:09/22/2024 Address:[address] [place] [address] [facility] Pcp:Lucy Phillips Subjective: * Chief Complaints: [...] *Please review and pick correct strength-formulation from [employer] options. If intended option is not shown, discontinue and re-order from Quick Search*Doxycycline Monohydrate 100 MG Tablet 1 tab(s) orally 2 times a day Multivitamin MULTIPLE VITAMINS CAPSULE 1 CAP(S) ORALLY ONCE A DAY , Notes to Pharmacist: *Please review and pick correct strength-formulation from [employer] options. If intended option is not shown, [...] *Please review and pick correct strength-formulation from [employer] [place] options. If intended option is not shown, discontinue and re-order from Quick Search*Taking Doxycycline Monohydrate 100 MG Tablet 1 tab(s) orally 2 times a day Taking Multivitamin MULTIPLE VITAMINS CAPSULE 1 CAP(S) ORALLY ONCE A DAY , Notes to Pharmacist: *Please review and pick correct strength-formulation from [employer] options. If intended option is not shown, [...] *Please review and pick correct strength-formulation from [employer] [place] options. If intended option is not shown, [...] *Please review and pick correct strength-formulation from [employer]ocks options. If intended option is not shown, discontinue and re-order from Quick Search*DULoxetine HCl 20 MG Capsule Delayed Release Particles 1 cap(s) orally 2 times a day Not-Taking/PRN Wixela Inhub 500 MCG-50 MCG POWDER USE 1 INHALATION BY MOUTH TWICE DAILY , Notes to Pharmacist: *Please review and pick correct strength-formulation from [employer]Stocks options. If intended option is not shown, [...] Information: * Visit Code: * Procedure Codes: 60805 IMMUNOTHERAPY INJECTIONS. * ER CRAFTSMAN Sign off status: Completed true * Provider: Aracelis Salmeron MD Date: 0 09/22/2024 Generated for Adam garcia/Shin/Russ on: 0 10/11/2024 12:55 AM MASTER CRAFTSMAN History and Physical Notes * HPI (History [...]
--- OUTSIDE RECORDS SUMMARY | 2024-10-11 00:56 | XMS_ITS ---
Author Organization [facility] Address [address] [place] [address] Care Team Providers Care Geophysics Scientist Name Role Phone Lucy Phillips Primary Care Provider UnavailLexi Barragan Unavailable [phone] Alberto Salmeron Unavailable [phone] REASON FOR VISIT SCIT - Traditional Schedule Allergy immunotherapy Medications Medication SIG (Take, Route, Frequency, Duration) Notes Start Date End Date Status Montelukast Sodium 10 MG 1 tab(s) orally once a day for 90 days Not-Taking CONTROL PILL 1 TABLET BY MOUTH DAILY for 30 DAYS *Please review for potential replacement for e-prescription and drug interaction check* Active Famotidine 40 MG 1 tablet Orally 1 hr prior to allergy shot for 30 days 04/11/2024 Active DULoxetine HCl 20 MG 1 cap(s) orally 2 times a day for 30 day(s) Not-Taking Trelegy Ellipta 200 MCG-62.5 MCG-25 MCG/INH 1 PUFF(S) INHALED ONCE A DAY for 30 DAY(S) *Please review and pick correct strength-formula tion from redealizean options. If intended option is not shown, discontinue and re-order from Quick Search* 08/29/2021 Not-Taking Levothyroxine Sodium 150 MCG 1 tab(s) orally once a day for 30 day(s) Active Multivitamin MULTIPLE VITAMINS 1 CAP(S) ORALLY ONCE A DAY for 30 DAY(S) *Please review and pick correct strength-formula tion from Medispan options. If intended option is not shown, discontinue and re-order from Quick Search* Active Vitamin B-12 250 MCG 1 tab(s) orally once a day for 30 day(s) Not-Taking Minocycline HCl 100 MG 1 cap(s) orally every 12 hours Not-Taking STOOL SOFTENER WITH LAXATIVE 50 MG-8.6 MG 2 TAB(S) ORALLY ONCE A DAY (AT BEDTIME) *Please review for potential replacement for e-prescription and drug interaction check* Active AEROCHAMBER MDI SPACER N/A USER WITH MDI INHALERS BY MOUTH Q4-6 HOURS PRN for 30 DAY(S) *Please review for potential replacement for e-prescription and drug interaction check* Active PROAIR HFA CFC FREE 90 MCG/INH 2 PUFF(S) INHALED Q4-6 HOURS, PRN AND PER THE ASTHMA ACTION PLAN for 30 DAY(S) *Please review for potential replacement for e-prescription and drug interaction check* Not-Taking Doxycycline Monohydrate 100 MG 1 tab(s) orally 2 times a day Active Actemra ACTPen 162 MG/0.9 ML DIRECTED SUBCUTANEOUSLY *Please review and pick correct strength-formula tion from Travel Notes options. If intended option is not shown, discontinue and re-order from Quick Search* Active Wixela Inhub 500 MCG-50 MCG USE 1 INHALATION BY MOUTH TWICE DAILY *Please review and pick correct strength-formula tion from Travel Notes options. If intended option is not shown, discontinue and re-order from Quick Search* Not-Taking Montelukast Sodium 10 MG 1 tab(s) orally once a day for 90 days Active Cetirizine HCl 10 MG 1 tab(s) orally once a day Active SIT (TRADITIONAL) variable per schedule SC per schedule for to be determined Active Flonase Allergy Relief 50 MCG/ACT 2 spray(s) intranasally (avoid nasal septum) once a day Active PROAIR HFA CFC FREE 90 MCG/INH 2 PUFF(S) INHALED Q4-6 HOURS, PRN AND PER THE ASTHMA ACTION PLAN for 30 DAY(S) *Please review for potential replacement for e-prescription and drug interaction check* Active FLONASE 0.05 mg/inh 2 spray(s) intranasally (avoid nasal septum) once a day Active MONTELUKAST 10 mg 1 tab(s) orally once a day for 90 days Active CETIRIZINE 10 mg 1 tab(s) orally once a day Active EpiPen 2-Wally 0.3 mg as directed intramuscularly once for 30 days Active Encounters Encounter Location Date Provider Diagnosis [facility] [address] [place] [address] 07/26/2024 Alberto Salmeron Allergic rhinitis due to pollen J30.1 ; Allergic rhinitis due to animal (cat) (dog) hair and dander J30.81 ; Other allergic rhinitis J30.89 and Other chronic allergic conjunctivitis H10.45 Assessments Encounter Date Diagnosis (ICD Code) Assessment Notes Treatment Notes Treatment Clinical Notes Section Notes 07/26/2024 Allergic rhinitis due to pollen (ICD-10 - J30.1) 07/26/2024 Allergic rhinitis due to animal (cat) (dog) hair and dander (ICD-10 - J30.81) 07/26/2024 Other allergic rhinitis (ICD-10 - J30.89) 07/26/2024 Other chronic allergic conjunctivitis (ICD-10 - H10.45) Plan Of Treatment Next Appt Details Follow Up: 1 Week, Reason: Provider Name:Lexi JoseLeeann Eddy , 10/17/2024 03:00:00 PM, [address] [place], [address], Progress Notes * YANELIS ElisaDOB:1984 (39 yo F)Acc No.[id number]:07/26/2024 SCIT-Aeroallergen Patient: Elisa BARRY Provider: Aracelis Salmeron MD :1985 A ge:39 Y S ex:Female Date:07/26/2024 Address:[address] [place] [address] [facility] Pcp:Lucy Phillips Subjective: * Chief Complaints: * [...] Tablet 1 tab(s) orally once a day Montelukast Sodium 10 MG Tablet 1 tab(s) orally once [...] *Please review and pick correct strength-formulation from redealizean options. If intended option is not shown, [...] 1 hr prior to allergy shot Taking EpiPen 2-Wally 0.3 mg kit as [...] 1 tab(s) orally once a day Taking Montelukast Sodium 10 MG Tablet 1 tab(s) orally once [...] *Please review and pick correct strength-formulation from Travel Notes options. If intended option is not shown, discontinue and re-order from Quick Search*Taking Doxycycline Monohydrate 100 MG Tablet 1 tab(s) orally 2 times a day Taking Multivitamin MULTIPLE VITAMINS CAPSULE 1 CAP(S) ORALLY ONCE A DAY , Notes to Pharmacist: *Please review and pick correct strength-formulation from Travel Notes options. If intended option is not shown, [...] Orally 1 hr prior to allergy shot Not-Taking/PRNWixela Inhub 500 MCG-50 MCG POWDER USE 1 INHALATION BY MOUTH TWICE DAILY , Notes to Pharmacist: *Please review and pick correct strength-formulation from Travel Notes options. If intended option is not shown, [...] Tablet 1 tab(s) orally once a day Montelukast Sodium 10 MG Tablet 1 tab(s) orally once a day Trelegy Ellipta 200 MCG-62.5 MCG-25 MCG/INH POWDER 1 PUFF(S) INHALED ONCE A DAY , Notes to Pharmacist: *Please review and pick correct strength-formulation from Travel Notes options. If intended option is not shown, discontinue and re-order from Quick Search*DULoxetine HCl 20 MG Capsule Delayed Release Particles 1 cap(s) orally 2 times a day Not-Taking/PRN Wixela Inhub 500 MCG-50 MCG POWDER USE 1 INHALATION BY MOUTH TWICE DAILY , Notes to Pharmacist: *Please review and pick correct strength-formulation from Travel Notes options. If intended option is not shown, [...] tab(s) orally once a day Not- Taking/PRN Montelukast Sodium 10 MG Tablet 1 tab(s) orally once a day Not-Taking/PRN Trelegy Ellipta 200 MCG-62.5 MCG-25 MCG/INH POWDER 1 PUFF(S) INHALED ONCE A DAY , Notes to Pharmacist: *Please review and pick correct strength-formulation from Travel Notes options. If intended option is not shown, [...] Information: * Visit Code: * Procedure Codes: 92153 IMMUNOTHERAPY INJECTIONS. * OL PSYCHOLOGY PROFESSOR Sign off status: Completed true * Provider: Aracelis Salmeron MD Date: 09/26/2023 Generated for Adam garcia/Shin/Russ on: 0 10/11/2024 12:55 AM SCHOOL PSYCHOLOGY PROFESSOR History and Physical Notes * HPI (History [...]
--- OUTSIDE RECORDS SUMMARY | 2024-10-11 00:56 | XMS_ITS | Patient Health Summary ---
Author Organization [facility] Address [address] [facility] [place] [address] Care Team Providers Care Underwear Welter Name Role Phone Lucy Phillips PA-C Primary Care Provider [phone] Note from [facility],non-owned Affiliates and Associated Physician Practices is amultiple site organization consisting of ambulatory clinics and hospital sitesin [place], [place], [place] and [place]. This disclosure is being madepursuant to the Care Everywhere program and may not contain all information available regarding this patient. Last updated 18.[facility] Allergies * Dog Epithelium(Other) -Medium Criticality * Dust Mite Extract(Itching) -Medium Criticality * Grass Pollen(K-O-R-T-Swt Pool)(Eye Itching) -Medium Criticality * Little Animals Plus(Itching) -Medium Criticality * Pollen Extract(Other) * Tapentadol(Itching,Rash) -Medium Criticality Medications * Be aware that medications may not be up to date on this document. Alwaysverify current medications with the patient. * cetirizine (ZyrTEC ALLERGY) 10 MG gel capsule Take 1 (one) capsule by mouth once daily Reasons: Hayfever, Insect Bites * montelukast (Singulair) 10 MG tablet Take 1 (one) tablet by mouth at bedtime Reasons: Hayfever * fluticasone propionate (Flonase) 50 MCG/ACT nasal spray [place] 2 (two) sprays into each nostril once daily * albuterol HFA (Proventil; Ventolin; Proair) 108 (90 Base) MCG/ACT inhaler (Started 06/19/2022) INHALE 2 PUFFS BY MOUTH EVERY 4 TO 6 HOURS NEEDED AND PER THE ASTHMA ACTION PLAN * levothyroxine (Synthroid) 150 MCG tablet Take 1 (one) tablet by mouth daily before breakfast * cyclobenzaprine (Flexeril) 5 MG tablet(Started 05/04/2023) Take 1 (one) tablet by mouth at bedtime 3 refills by 05/03/2024 * MULTIPLE VITAMIN PO Take 1 tablet by mouth once daily * cyanocobalamin (Vitamin B-12) 1000 MCG tablet Take 1 (one) tablet by mouth once daily * azaTHIOprine (Imuran) 50 MG tablet(Started 08/03/2023) Take 1 (one) tablet by mouth once daily 3 refills by 08/02/2024 * DULOXETINE HCL PO * drospirenone-ethinyl estradiol (Loryna) 3-0.02 MG tablet Take 1 (one) tablet by mouth once daily * tocilizumab (Actemra) 162 MG/0.9ML auto-injector(Started 11/24/2023) Inject 0.9 mL subcutaneously every 7 days 2 refills by 11/23/2024 Active Problems Problem Noted Date Diagnosed Date [...] Sex Assigned at Female 07/21/2022 8:36 PM BARK PRESS OPERATOR Gender Identity Female 07/21/2022 8:36 PM BARK PRESS OPERATOR Sexual Orientation Straight 07/21/2022 8: 36 PM BARK PRESS OPERATOR Last Filed Vital Signs Vital Sign Reading Time Taken Comments Blood Pressure 136/70 11/04/2023 3:39 PM CDT Pulse 78 11/04/2023 3:39 PM CDT Temperature 36.8 C (98.2 F) 08/03/2023 3:42 PM BARK PRESS OPERATOR Respiratory Rate 16 11/04/2023 3:39 PM CDT Oxygen Saturation 99% 11/04/2023 3:39 PM CDT Inhaled Oxygen Concentration - - Weight 128.8 kg (284 lb) 11/04/2023 3:39 PM CDT Height 157.5 cm (5' 2 ) 11/04/2023 3:39 PM CDT Body Mass Index 51.94 11/04/2023 3:39 PM CDT Care Teams Underwear Welter Relationship Specialty Start Date End Date Lucy Phillips PA-C [address] [place], [place] [phone] PCP - General 08/03/23
--- OUTSIDE RECORDS SUMMARY | 2024-10-11 00:56 | XMS_ITS | Encounter Summary ---
Author Organization [facility] Address [address] [place] [address] Care Team Providers Care Repairer Wood Furniture Name Role Phone Bhakti Weldon Primary Care Provider [phone] Yomaira VegaP- Primary Care Provider + Lucy Phillips-C Primary Care Provider [phone] Encounter Details Date Type Department Care Team (Late st Contact Info) Description 08/21/2021 SEDLinet Message Enc [facility] Multispecialty Care - [facility] [address] [facility], [address] [place] [phone] Melissa Escalante APRN [address] [facility] [address] [place], [place] [phone] question Social History Tobacco Use Types Packs/Day [...] CDT Travel History Travel Start Travel End [place] 10/02/2024 10/10/2024 COVID-19 Exposure Response Date Recorded In the last month, have you been in contact with someone who was confirmed or suspected to have Coronavirus / COVID-19? Yes 08/13/2021 4:09 PM PHOTOGRAPHER LITHOGRAPHIC documented as of this encounter Plan of Treatment Upcoming Encounters Date Type Department Care Team (Late st Contact Info) Description 11/22/2024 7:40 AM CDT Office Visit [facility] Family & Internal Medicine [address] [address] [place] [address] [place], [place] [phone] 09/01/2025 9:15 AM PHOTOGRAPHER LITHOGRAPHIC Office Visit [facility] [phone] Prasad Ambrosio MD [address] [address] documented as of this encounter Visit Diagnoses Not on filedocumented in this encounter Additional Health Concerns Assessment Noted Time PHQ-9 Depression Total Score: 0 05/01/20 21 2:49 PM CDT documented as of this encounter Care Teams Repairer Wood Furniture Relationship Specialty Start Date End Date Bhakti Weldon PA PCP - General PHYSICIAN SLAB GRINDER 01/22/19 11/10/22 Yomaira Vega FNP-BC PCP - General Nurse Practitioner Family 11/11/22 9/03/15 Lucy Phillips PA-C [address] [place] [address] PCP - General PHYSICIAN SLAB GRINDER 05/21/23 documented as of this encounter
--- OUTSIDE RECORDS SUMMARY | 2024-10-11 00:56 | XMS_ITS | Encounter Summary ---
Author Organization [facility] Address [address] [place] [address] Care Team Providers Care Crown Ceramist Name Role Phone Yomaira Vega- Primary Care Provider + Lucy Phillips PA-C Primary Care Provider [phone] Encounter Details Date Type Department Care Team (Late st Contact Info) Description 03/13/2023 [employer] sands [employer] Message Enc [facility] [address] [place] [address] [place] [address] [place] [address] Update Social History Tobacco Use Types Packs/Day [...] Assessment Author Status No 10/01/2022 1:55 PM MEDICAL ASSOCIATE Activ e * RETIRED Are you blind or do you have serious difficulty seeing, even when wearing glasses? Answer Date of Assessment Author Status No 10/01/2022 1:55 PM MEDICAL ASSOCIATE Activ e * Do you have serious [...] Description 11/22/2024 7:40 AM CDT Office Visit [facility] Family & Internal Medicine [address] [phone] Gume Bloom PA [address] [place] [phone] 09/01/2025 9:15 AM MEDICAL ASSOCIATE Office Visit [facility] [phone] Prasad Ambrosio MD [facility] [address] [place] [address] documented as of this encounter Visit Diagnoses Not on filedocumented in this encounter Additional Health Concerns Assessment Noted Time PHQ-9 Depression Total Score: 13 023 3:13 PM CDT documented as of this encounter Care Teams Crown Ceramist Relationship Specialty Start Date End Date [facility] PCP - General Nurse Practitioner Family 11/11/2204/25 Lucy Phillips PAChandniC [address] [address] PCP - General PHYSICIAN DRY CLEANING COUNTER CLERK 05/21/23 documented as of this encounter
--- OUTSIDE RECORDS SUMMARY | 2024-10-11 00:56 | XMS_ITS | Encounter Summary ---
Author Organization [facility] Address [facility] [place] [address] Care Team Providers Care [employer] Name Role Phone Lucy Phillips PA-C Primary Care Provider [phone] Reason for Referral * Imaging (Emergency) - New Request Specialty Diagnoses / Procedures Referred By Alfredo stover Referred To Contact RADIOLOGY Procedures CT ABD+PEL KIDNEY STONE Sherif Atkins DO [address] [place] [address] Phone: tel: fax: Referral ID Status Reason Start Date Expiration Date V isits Requested Visits Authorized [id number] New Request 10/10/2024 10/10/2025 1 1 R CHASER Reason for Visit * Reason Comments Back Pain 8/ continuous left mid to entire lower, nausea, and diarrhea beginning Thursday Encounter Details Date Type Department Care Team (Late st Contact Info) Description 10/10/2024 2:12 AM WATER CHASER - 10/10/2024 5:14 AM WATER CHASER Emergency [facility] Emergency Room [address] [place] [address] Sherif Atkins DO [address] [place] [address] Back Pain (04/02 continuous left mid to entire lower, nausea, and diarrhea beginning Thursday) Discharge Disposition: Home or Self Care (Routine Discharge) Social History Tobacco Use Types Packs/Day Years [...] CDT Travel History Travel Start Travel End [facility] [place] 10/02/2024 10/10/2024 documented as of this encounter Last Filed Vital Signs Vital Sign Reading Time Taken Comments Blood Pressure 151/80 10/10/2024 5:12 AM WATER CHASER Pulse 62 10/10/2024 5:12 AM WATER CHASER Temperature 36.2 C (97.2 F) 10/10/2024 5:12 AM WATER CHASER Respiratory Rate 18 10/10/2024 5:12 AM WATER CHASER Oxygen Saturation 100% 10/10/2024 5:12 AM WATER CHASER Inhaled Oxygen Concentration - - Weight 134.3 kg (296 lb) 10/10/2024 2:15 AM WATER CHASER Height 157.5 cm (5' 2 ) 10/10/2024 2:15 AM WATER CHASER Body Mass Index 54.14 10/10/2024 2:15 AM WATER CHASER documented in this encounter Functional Status * RETIRED Are you deaf or do you have serious difficulty hearing Answer Date of Assessment Author Status No 10/01/2022 1:55 PM WATER CHASER Activ e * RETIRED Are you blind or do you have serious difficulty seeing, even when wearing glasses? Answer Date of Assessment Author Status No 10/01/2022 1:55 PM WATER CHASER Activ e * Do you have serious [...] Colbert RN Active documented in this encounter Discharge Instructions * Discharge Instructions* Sherif Atkins DO - 10/10/2024 5:04 AM WATER CHASER 1. Can alternate Toradol and loar-vly-vrbjqay Tylenol/acetaminophen every 4 hours as needed for pain. 2. Can take half tablet of morphine as needed for breakthrough pain. 3. Please drink plenty of fluids. 4. Follow-up with urology as soon as possible. R CHASER documented in this encounter Medications at Time of Discharge albuterol sulfate HFA 108 (90 Base) MCG/ACT inhaler Inhale 2 puffs into the lungs every 6 (six) hours as needed. 6 Albuterol-Budesonid e (AIRSUPRA) 90-80 MCG/ACT AerosolIndications: Upper respiratory tract infection, unspecified type,Mild intermittent asthma, unspecified whether complicated (HHS/HCC) Inhale 2 Inhalations into the lungs every 4 (four) hours as needed. 10.7 g 4 buPROPion XL (WELLBUTRIN XL) 300 MG 24 hr tabletIndications:M oderate major depression (CMS/HCC HHS/HCC) Take 1 tablet (300 mg total) by mouth daily. 30 tablet 1 4 calcium carbonate (TUMS) 500 MG chewable tablet Chew 1 tablet (500 mg total) by mouth 3 (three) times daily. Cetirizine HCl (ZYRTEC ALLERGY) 10 MG Cap Take by mouth nightly. 5 clindamycin (CLEOCIN T) 1 % gel APPLY THIN LAYER TOPICALLY TO AFFECTED AREAS OF ACNE AND HS UP TO TWICE DAILY NEEDED 4 cyclobenzaprine (FLEXERIL) 5 MG tablet Take 1 tablet (5 mg total) by mouth. 3 diclofenac sodium (VOLTAREN) 1 % gelIndications:Triage Licensed Practical Nurse robbie pain of right knee Apply 2 g topically 4 (four) times daily as needed. 100 g 4 EPINEPHrine 0.3 MG/0.3ML injection Inject 0.3 mLs (0.3 mg total) into the muscle as needed. 99 9 famotidine (PEPCID) 40 MG tablet 1 tablet Orally 1 hr prior to allergy shot for 30 days 4 fluticasone propionate (FLONASE) 50 MCG/ACT nasal spray 1 spray by Nasal route nightly. ketorolac (TORADOL) 10 MG tablet Take 1 tablet (10 mg total) by mouth every 6 (six) hours as needed for Pain. 20 tablet 5 10/15/19 25 WALKER FE 09/12 1-20 MG-MCG tablet 4 levothyroxine (SYNTHROID) 150 MCG tablet Take 1 tablet (150 mcg total) by mouth daily. Taking 150 mcg 3 meloxicam (MOBIC) 15 MG tabletIndications:H and arthritis Take 1 tablet (15 mg total) by mouth daily. 30 tablet 5 methylPREDNISolone, JOHNY, (MEDROL DOSEPAK) 4 MG tabletIndications:T rigger helper finger of right thumb,Trigger middle finger of right hand Take 1 tablet (4 mg total) by mouth see administration instructions. Follow package taper directions 1 each 5 metroNIDAZOLE (METROGEL) 0.75 % vaginal gel INSERT 1 APPLICATORFUL VAGINALLY ONCE DAILY AT BEDTIME FOR 5 DAYS 4 montelukast 10 MG tablet Take 1 tablet (10 mg total) by mouth nightly at bedtime. 0 morphine (MSIR) 15 MG tabletIndications:A cute Pain < 7 Day Supply Take 0.5 tablets (7.5 mg total) by mouth every 6 (six) hours as needed. Indications: Acute Pain < 7 Day Supply 10 tablet 5 Multiple Vitamin (MULTIVITAMIN ADULT OR) Take 1 tablet by mouth daily. bariatric ondansetron (ZOFRAN-ODT) 4 MG disintegrating tablet Take 1 tablet (4 mg total) by mouth every 8 (eight) hours as needed for Nausea. 20 tablet 4 ondansetron (ZOFRAN-ODT) 8 MG disintegrating tablet Take 1 tablet (8 mg total) by mouth every 8 (eight) hours as needed for Nausea. 10 tablet 3 PARoxetine (PAXIL) 10 MG tabletIndications:M oderate major depression (CMS/HCC HHS/HCC) Take 1 tablet (10 mg total) by mouth every morning. 90 tablet 5 12/21/19 25 Spacer/Aero-Holding Chambers (EQ SPACE CHAMBER ANTI-STATIC) Device as directed with inhaler 2 sulfamethoxazole-tr imethoprim (BACTRIM DS) 800-160 MG tablet 4 tocilizumab (ACTEMRA) 162 mg/0.9mL Solution Auto-injector injection auto-injector Inject 0.9 mLs (162 mg total) into the skin once a week. 4 vitamin B-12 (CYANOCOBALAMIN) (CYANOCOBALAMIN) 1000 mcg tablet Take 1 tablet (1,000 mcg total) by mouth daily. documented as of this encounter ED Notes * Maggie Nicole RN - 10/10/2024 2:34 AM CSTSummary: Triage Pt arrived via-POV with complaints of 8/10 continuous left mid to entire lower, nausea, and diarrhea beginning Thursday. Pt took Tylenol, Zofran, Pepto, Dramamine, and Buscopan with minimal pain / nausea relief. Pt denies vomiting. Pt reports recent kidney stone on left side and recent treatment forUTI with 6 different ABXs. Pt is A&ox4, calm & cooperative, and ambulates with steady gait to room. Filed Vitals: 10/10/24 0215 BP: 137/73 Pulse: 66 Resp: 20 Temp: 97.5 ??F (36.4 ??C) TempSrc: Temporal SpO2: 100% R CHASER R CHASER * Sherif Atkins DO - 10/10/2024 2:26 AM CST Chief Complaint Chief Complaint Patient presents with Back Pain 8/10 continuous left mid to entire lower, nausea, and diarrhea beginning Thursday History of Present Illness 39-year-old female comes emergency department for left low back pain and abdominal cramping that started on Thursday. Patient does report some diarrhea. Denies having any chest pain and shortness of breath. Does have a history of kidney stones. Medical History ALLERGIES: Review of patient's allergies indicates: Allergen Reactions Adhesive [Tape] Rash, Itching and Redness Cat Dander Sneezing and Other (see comment) Itchy watery eyes Dog Dander Other (see comment) and Sneezing Itchy watery eyes Misc Natural Products Itching, Sneezing and Other (see comment) Dust and Exhaust fumes Molds & Smuts Itching, Sneezing and Other (see comment) Grass Runny Nose Pollen Extract Runny Nose Tree Extract Runny Nose MEDICATIONS: Prior to Admission medications Medication Sig Start Date End Date Taking? Authorizing Provider ketorolac (TORADOL) 10 MG tablet Take 1 tablet (10 mg total) by mouth every 6 (six) hours as neededfor Pain. 10/10/24 10/15/24 Yes Sherif Atkins DO morphine (MSIR) 15 MG tablet Take 0.5 tablets (7.5 mg total) by mouth every 6 (six) hours as needed. Indications: Acute Pain < 7 Day Supply 10/10/24 Yes Sherif Atkins DO albuterol sulfate HFA 108 (90 Base) MCG/ACT inhaler Inhale 2 puffs into the lungs every 6 (six) hours as needed. 09/10/15 Doc [facility] Albuterol-Budesonide (AIRSUPRA) 90-80 MCG/ACT Aerosol Inhale 2 Inhalations into the lungs every 4 (four) hours as needed. 01/01/24 JUJU Miranda buPROPion XL (WELLBUTRIN XL) 300 MG 24 hr tablet Take 1 tablet (300 mg total) by mouth daily. 08/23/24 JUJU Miranda calcium carbonate (TUMS) 500 MG chewable tablet Chew 1 tablet (500 mg total) by mouth 3 (three) times daily. Default History Genericprovider Cetirizine HCl (ZYRTEC ALLERGY) 10 MG Cap Take by mouth nightly. 08/24/14 Doc [facility] clindamycin (CLEOCIN T) 1 % gel APPLY THIN LAYER TOPICALLY TO AFFECTED AREAS OF ACNE AND HS UP TO TWICE DAILY NEEDED 12/09/23 Default History Genericprovider cyclobenzaprine (FLEXERIL) 5 MG tablet Take 1 tablet (5 mg total) by mouth. 05/04/23 Default HistoryGenericprovider diclofenac sodium (VOLTAREN) 1 % gel Apply 2 g topically 4 (four) times daily as needed. 10/13/23 Lucy Phillips PA-C EPINEPHrine 0.3 MG/0.3ML injection Inject 0.3 mLs (0.3 mg total) into the muscle as needed. 03/23/19Doc [facility] famotidine (PEPCID) 40 MG tablet 1 tablet Orally 1 hr prior to allergy shot for 30 days 04/11/24 Default History Genericprovider fluticasone propionate (FLONASE) 50 MCG/ACT nasal spray 1 spray by Nasal route nightly. Default History Genericprovider WALKER FE 09/12 1-20 MG-MCG tablet 07/01/24 Default History Genericprovider levothyroxine (SYNTHROID) 150 MCG tablet Take 1 tablet (150 mcg total) by mouth daily. Taking 150 mcg 09/17/22 Default History Genericprovider meloxicam (MOBIC) 15 MG tablet Take 1 tablet (15 mg total) by mouth daily. 09/30/24 JUJU Miranda PAK, (MEDROL DOSEPAK) 4 MG tablet Take 1 tablet (4 mg total) by mouth see administration instructions. Follow package taper directions Patient not taking: Reported on 09/21/2024 08/30/24 Memo Amor MD metroNIDAZOLE (METROGEL) 0.75 % vaginal gel INSERT 1 APPLICATORFUL VAGINALLY ONCE DAILY AT BEDTIME FOR 5 DAYS 08/16/24 Default History Genericprovider montelukast 10 MG tablet Take 1 tablet (10 mg total) by mouth nightly at bedtime. 09/26/19 Doc [facility] Multiple Vitamin (MULTIVITAMIN ADULT OR) Take 1 tablet by mouth daily. bariatric Default History Genericprovider ondansetron (ZOFRAN-ODT) 4 MG disintegrating tablet Take 1 tablet (4 mg total) by mouth every 8 (eight) hours as needed for Nausea. 07/22/24 Radha Eli MD ondansetron (ZOFRAN-ODT) 8 MG disintegrating tablet Take 1 tablet (8 mg total) by mouth every 8 (eight) hours as needed for Nausea. 10/02/22 Gay Wright PA-C PARoxetine (PAXIL) 10 MG tablet Take 1 tablet (10 mg total) by mouth every morning. 09/21/24 12/20/24JUJU Miranda Spacer/Aero-Holding Chambers (EQ SPACE CHAMBER ANTI-STATIC) Device as directed with inhaler 08/14/22 Default History Genericprovider sulfamethoxazole-trimethoprim (BACTRIM DS) 800-160 MG tablet 08/18/24 Default History Genericprovider tocilizumab (ACTEMRA) 162 mg/0.9mL Solution Auto-injector injection auto- injector Inject 0.9 mLs (162 mg total) into the skin once a week. 11/24/23 Default History Genericprovider vitamin B-12 (CYANOCOBALAMIN) (CYANOCOBALAMIN) 1000 mcg tablet Take 1 tablet (1,000 mcg total) by mouth daily. 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;f/u with another EGD Constipation GERD (gastroesophageal reflux disease) Morbid obesity (CMS/HCC HHS/HCC) Neck pain Palpitations hasnt had in over 18 months PONV (postoperative nausea and vomiting) nausea only Sleep apnea 2015 tested again Aug 2020- mild - does not use CPAP Thyroid cancer (CMS/HCC HHS/HCC) 2021 s/p thyroidectomy Trigger finger of right hand thumb and middle finger Weight loss PAST SURGICAL HISTORY: Past Surgical History: Procedure Laterality Date EGD 06/03/2022 Dr Miguel JIMENEZ ( with a biopsy) EXPLORATORY OF ABDOMEN 11/2021 attempted jerry, but wasn't removed HC GASTRIC SLEEVE 10/01/2022 KNEE ARTHROSCOPY Right open REVISE MEDIAN N/CARPAL TUNNEL SURG THYROIDECTOMY TOTAL/COMPLETE 05/14/2022 Dr Murray Kamara FAMILY HISTORY: Family History Problem Relation Name Age of Onset Hypertension Mother MARY Heart Attack Mother MARY 52 Stent Cardiac Mother MARY Stroke Mother MARY Rheumatoid Arthritis Mother MARY Alcohol Abuse Mother MARY Arthritis Mother MARY Depression Mother MARY Early Mother MARY Heart Disease Mother MARY Mental Health Mother MARY Miscarriages / Stillbirths Mother MARY Vision loss Mother MARY Hypertension Father MARC Diabetes Father MARC Lung Disease Father MARC Kidney Disease Father MARC Kidney Cancer Father MARC Stent Cardiac Father MARC Asthma Father MARC Cancer Father MARC Depression Father MARC Heart Disease Father MARC Mental Health Father MARC No Known Problems Sister Lung Disease Brother No Known Problems Maternal Aunt No Known Problems Maternal Uncle Cancer Paternal Aunt JAREK Cervical Depression Paternal Aunt JAREK Heart Disease Paternal Uncle CHERELLE JR Hypertension Maternal Grandmother KEL Open Heart Maternal Grandfather AYAH Hypertension Maternal Grandfather AYAH Hypertension Paternal Grandmother DELROY Heart Disease Paternal Grandmother DELROY Open Heart Paternal Grandmother DELROY Lung Cancer Paternal Grandfather CHERELLE Open Heart Paternal Grandfather CHERELLE Cancer Paternal Grandfather CHERELLE Heart Disease Paternal Grandfather CHERELLE Hypertension Paternal Grandfather CHERELLE Asthma Brother IDNORAH Kidney Disease Paternal Uncle CHERELLE SOCIAL HISTORY: Social History Tobacco Use Smoking status: Never Smokeless tobacco: Never Tobacco comments: not a smoker Vaping Use Vaping status: Never Used Substance Use Topics Alcohol use: Yes Comment: SOCIALLY Drug use: Never Comment: na Review of Systems Review of Systems Physical Exam Filed Vitals: 10/10/24 0215 10/10/24 0300 10/10/24 0512 BP: 137/73 119/53 (!) 151/80 Pulse: 66 63 62 Resp: 20 18 Temp: 97.5 ??F (36.4 ??C) 97.2 ??F (36.2 ??C) TempSrc: Temporal Temporal SpO2: 100% 99% 100% Weight: 134.3 kg (296 lb) Height: 1.575 m (5' 2 ) Physical Exam Vitals and nursing note reviewed. Constitutional: General: She is not in acute distress. Appearance: Normal appearance. HENT: Head: Normocephalic and atraumatic. Cardiovascular: Heart sounds: No murmur heard. Pulmonary: Effort: Pulmonary effort is normal. No respiratory distress. Breath sounds: Normal breath sounds. Abdominal: Tenderness: There is no abdominal tenderness. There is no guarding. Musculoskeletal: General: No tenderness. Neurological: General: No focal deficit present. Mental Status: She is alert and oriented to person, place, and time. Psychiatric: Mood and Affect: Mood normal. Behavior: Behavior normal. Diagnostic Studies / Procedures ELECTROCARDIOGRAMS: No results found for this visit on 10/10/24. LABORATORY STUDIES: Results for orders placed or performed during the hospital encounter of 10/10/24 CBC W/DIFF AUTOMATED Result Value Ref Range WBC 7.84 4.4 - 11.0 x10'3/uL RBC 4.06 (L) 4.50 - 5.10 x10'6/uL HGB 12.8 12.3 - 15.3 G/DL HCT 37.1 35.9 - 44.6 % MCV 91.4 80.0 - 96.0 FL MCH 31.5 (H) 25.3 - 30.9 PG MCHC 34.5 (H) 31.0 - 34.1 G/DL RDW 12.5 12.4 - 15.1 % PLT 277 151 - 353 x10'3/uL MPV 9.7 9.6 - 12.0 FL RBC MORPHOLOGY NORMAL PLT MORPH. NORMAL WBC MORPHOLOGY NORMAL LYMPHOCYTES % 47.3 (H) 15.8 - 45.0 % NEUTROPHILS % 42.3 42.1 - 71.9 % MONOCYTES % 7.8 5.7 - 12.5 % EOSINOPHILS 1.9 0.0 - 5.6 % BASOPHILS 0.4 0.0 - 1.3 % ABS. NEUTROPHILS 3.32 1.40 - 6.00 x10'3/uL IMMATURE GRANS % 0.3 0.0 - 0.5 % ABS. LYMPHOCYTES 3.71 0.80 - 4.70 x10'3/uL COMPREHENSIVE METABOLIC PANEL Result Value Ref Range GLUCOSE 115 (H) 70 - 99 MG/DL BUN 15 7 - 18 MG/DL CREATININE S/P/B 1.22 (H) 0.55 - 1.02 MG/DL SODIUM S/P/B 142 136 - 145 MMOL/L POTASSIUM S/P/B 3.8 3.5 - 5.1 MMOL/L CHLORIDE S/P/B 106 100 - 108 MMOL/L CO2 22.5 21 - 32 MMOL/L CALCIUM S/P/B 9.0 8.5 - 10.1 MG/DL BILIRUBIN TOTAL S/P/B 0.3 0.2 - 1.2 MG/DL TOTAL PROTEIN S/P/B 6.7 6.4 - 8.2 G/DL ALBUMIN S/P/B 3.3 (L) 3.4 - 5.0 G/DL AST 15 15 - 37 U/L ALT 18 14 - 55 U/L ALKALINE PHOSPHATASE S/P/B 63 50 - 136 U/L ANION GAP 13.5 5 - 15 MMOL/L BUN CREATININE RATIO 12.3 6 - 26 A/G RATIO 1.0 1.0 - 2.0 RATIO GFR ESTIMATE 59 (L) >90 ML/MIN/1.73 M2 LIPASE Result Value Ref Range LIPASE 27 16 - 77 UNITS/L CHORIONIC GONADOTROPIN HCG QL Result Value Ref Range PREG SCREEN-SERUM NEGATIVE NEGATIVE IMAGING STUDIES CT ABD+PEL KIDNEY STONE Final Result by User, [id number] (10/10 345) [facility] [address] [place] [address] Examination: CT ABD+PEL KIDNEY STONE Exam time: [...] free intraperitoneal air. No acute osseous abnormality. IMPRESSION: There is mild to moderate left hydronephrosis resulting from a 7 mm calculus in the proximal left ureter. Referred By: Interpreted By: Huseyin Saldivar MD, 10/10/2024 3:38 AM ED Course / Medical Decision Making Medical Decision Making Patient presented with left back and flank pain. Patient slightly hypertensive, otherwise vitals okay. Blood work shows normal white blood cell count. Creatinine slightly elevated at 1.22. CT scan concerning for some millimeter calculus on the left side. Pain under control in the emergency department. No need for hospitalization for pain management at this time. Will discharge patient with prescription for pain medications and nausea medications. Counseled patient to follow-up with her urologist as soon as possible. Patient may need some type of procedure for this stone. Problems Addressed: Ureterolithiasis: acute illness or injury Amount and/or Complexity of Data Reviewed Labs: ordered. Radiology: ordered. Clinical Impression Ureterolithiasis (Primary) Disposition: Discharge Sherif Atkins DO 10/10/24 0548 R CHASER documented in this encounter Plan of Treatment Upcoming Encounters Date Type Department Care Team (Late st Contact Info) Description 11/22/2024 7:40 AM CDT Office Visit [facility] - [place] [address] [place] [address] [place] [address] [place] [address] 09/01/2025 9:15 AM WATER CHASER Office Visit [facility] [address] [place] [id number] Prasad Ambrosio MD [address] [address] documented as of this encounter Procedures Procedure Name Priority Date/Time Associated Diagnosis Comments CT ABD+PEL KIDNEY STONE STAT 10/10/2024 3:35 AM WATER CHASER COMPREHENSIVE METABOLIC PANEL STAT 10/10/2024 2:43 AM WATER CHASER CHORIONIC GONADOTROPIN HCG QL STAT 10/10/2024 2:43 AM WATER CHASER CBC W/DIFF AUTOMATED STAT 10/10/2024 2:43 AM WATER CHASER LIPASE STAT 10/10/2024 2:43 AM WATER CHASER documented in this encounter Results * CT ABD+PEL KIDNEY STONE (10/10/2024 3:35 AM WATER CHASER) Anatomical Region Laterality Modality Abdomen Computed Tomogra phy 10/10/2024 3:38 AM WATER CHASER Impressions 10/10/2024 3:41 AM WATER CHASER IMPRESSION: There is mild to moderate left hydronephrosis resulting from a 7 mm calculus in the proximal left ureter. Referred By: Interpreted By: Huseyin Saldivar MD, 10/10/2024 3:38 AM Narrative 10/10/2024 3:41 [place] [address] Examination: CT ABD+PEL KIDNEY STONE Exam time: [...] Procedure Note Huseyin Saldivar MD - 10/10/2024 [facility] [address] [place] [address] Examination: CT ABD+PEL KIDNEY STONE Exam time: [...] Atkins DO CT Final Res ult * CHORIONIC GONADOTROPIN HCG QL (10/10/2024 2:43 AM WATER CHASER) PREG SCREEN-SERUM NEGATIVE NEGATIVE 10/10/2024 3:22 AM WATER CHASER [facility] 10/10/2024 2:43 AM WATER CHASER [facility] Final Res ult Performing Organization Address [facility]/ZIP Co de Phone Number [facility] [address] [place] [address], [place] [phone] * LIPASE (10/10/2024 2:43 AM WATER CHASER) Pathologist [facility] LIPASE 27 16 - 77 UNITS/L 10/10/2024 3:13 AM [facility] 10/10/2024 2:43 AM WATER CHASER [facility]if [facility] Final Res ult Performing Organization Address [facility] Co de Phone Number [facility] [address] [place] [address], [place] [phone] * (ABNORMAL) COMPREHENSIVE METABOLIC PANEL (10/10/2024 2:43 AM WATER CHASER) Pathologist [facility] GLUCOSE 115(H) 70 - 99 MG/DL 10/10/2024 3:13 AM [facility] BUN 15 7 - 18 MG/DL 10/10/2024 3:13 AM [facility] CREATININE S/P/B 1.22(H) 0.55 - 1.02 MG/DL 10/10/2024 3:13 AM [facility] SODIUM S/P/B 142 136 - 145 MMOL/L 10/10/2024 3:13 AM [facility] POTASSIUM S/P/B 3.8 3.5 - 5.1 MMOL/L 10/10/2024 3:13 AM [facility] CHLORIDE S/P/B 106 100 - 108 MMOL/L 10/10/2024 3:13 AM [facility] CO2 22.5 21 - 32 MMOL/L 10/10/2024 3:13 AM [facility] CALCIUM S/P/B 9.0 8.5 - 10.1 MG/DL 10/10/2024 3:13 AM [facility] BILIRUBIN TOTAL S/P/B 0.3 0.2 - 1.2 MG/DL 10/10/2024 3:13 AM [facility] TOTAL PROTEIN S/P/B 6.7 6.4 - 8.2 G/DL 10/10/2024 3:13 AM [facility] ALBUMIN S/P/B 3.3(L) 3.4 - 5.0 G/DL 10/10/2024 3:13 AM [facility] AST 15 15 - 37 U/L 10/10/2024 3:13 AM [facility] ALT 18 14 - 55 U/L 10/10/2024 3:13 AM [facility] ALKALINE PHOSPHATASE S/P/B 63 50 - 136 U/L 10/10/2024 3:13 AM [facility] ANION GAP 13.5 5 - 15 MMOL/L 10/10/2024 3:13 AM [facility] BUN CREATININE RATIO 12.3 6 - 26 10/10/2024 3:13 AM [facility] A/G RATIO 1.0 1.0 - 2.0 RATIO 10/10/2024 3:13 AM [facility] GFR ESTIMATE 59(L) >90 ML/MIN/1.7 3 M2 10/10/2024 3:13 AM [facility] Comment: NOTE: eGFR is not calculated for patients <18 years of age. This is an estimated GFR calculation using the new CKD EPI creatinine equation without race and so does not require a correction factor for race. This estimated GFR should not be used for calculating drug doses. 10/10/2024 2:43 AM WATER CHASER Sherif Atkins DO LABORATORY Final Res ult [facility] [address] [place] [address], * (ABNORMAL) CBC W/DIFF AUTOMATED (10/10/2024 2:43 AM WATER CHASER) WBC 7.84 4.4 - 11.0 x10'3/uL 10/10/2024 3:25 AM [facility] RBC 4.06(L) 4.50 - 5.10 x10'6/uL 10/10/2024 3:25 AM [facility] HGB 12.8 12.3 - 15.3 G/DL 10/10/2024 3:25 AM [facility] HCT 37.1 35.9 - 44.6 % 10/10/2024 3:25 AM [facility] MCV 91.4 80.0 - 96.0 FL 10/10/2024 3:25 AM [facility] MCH 31.5(H) 25.3 - 30.9 PG 10/10/2024 3:25 AM [facility] MCHC 34.5(H) 31.0 - 34.1 G/DL 10/10/2024 3:25 AM [facility] RDW 12.5 12.4 - 15.1 % 10/10/2024 3:25 AM [facility] PLT 277 151 - 353 x10'3/uL 10/10/2024 3:25 AM [facility] MPV 9.7 9.6 - 12.0 FL 10/10/2024 3:25 AM [facility] RBC MORPHOLOGY NORMAL 10/10/2024 3:25 AM [facility] PLT MORPH. NORMAL 10/10/2024 3:25 AM [facility] WBC MORPHOLOGY NORMAL 10/10/2024 3:25 AM [facility] LYMPHOCYTES % 47.3(H) 15.8 - 45.0 % 10/10/2024 3:25 AM [facility] NEUTROPHILS % 42.3 42.1 - 71.9 % 10/10/2024 3:25 AM [facility] MONOCYTES % 7.8 5.7 - 12.5 % 10/10/2024 3:25 AM [facility] EOSINOPHILS 1.9 0.0 - 5.6 % 10/10/2024 3:25 AM [facility] BASOPHILS 0.4 0.0 - 1.3 % 10/10/2024 3:25 AM [facility] ABS. NEUTROPHILS 3.32 1.40 - 6.00 x10'3/uL 10/10/2024 3:25 AM [facility] IMMATURE GRANS % 0.3 0.0 - 0.5 % 10/10/2024 3:25 AM [facility] ABS. LYMPHOCYTES 3.71 0.80 - 4.70 x10'3/uL 10/10/2024 3:25 AM [facility] 10/10/2024 2:43 AM WATER CHASER us Sherif Atkins DO LABORATORY Final Res ult [facility] [address] [place] [address], [place] [phone] documented in this encounter Visit Diagnoses Diagnosis Ureterolithiasis- Primary Calculus of ureter documented in this encounter Administered Medications Inactive Administered Medications - up to 3 most recent administrations Medication Order MAR Action Action Date Dose Rate Site ketorolac (TORADOL) injection 15 mg 15 mg, Intravenous, Once, 1 dose, On Thu10/10/24 at 0230, For IV administration, give over 15 seconds. Given 10/10/2024 2:47 AM WATER CHASER 15 mg ketorolac (TORADOL) injection 15 mg 15 mg, Intravenous, Once, 1 dose, On Thu10/10/24 at 0415, For IV administration, give over 15 seconds. Given 10/10/2024 4:18 AM WATER CHASER 15 mg ondansetron (ZOFRAN) injection 4 mg 4 mg, Intravenous, Once, 1 dose, On Thu10/10/24 at 0230, IV push over 2-5 minutes. Given 10/10/2024 2:47 AM WATER CHASER 4 mg documented in this encounter Active and Recently Administered Medications Times are shown in WATER CHASER. Scheduled Medication Order 10/08/2024 10/09/2024 10/10/2024 ketorolac (TORADOL) injection 15 mg (COMPLETED) 15 mg, Intravenous, Once, 1 dose, On Thu10/10/24 at 0230, For IV administration, give over 15 seconds. 0247 (Given - Provid er: Maggie Nicole RN) ketorolac (TORADOL) injection 15 mg (COMPLETED) 15 mg, Intravenous, Once, 1 dose, On Thu10/10/24 at 0415, For IV administration, give over 15 seconds. 0418 (Given - Provid er: Maggie Nicole, JENNIFER) ondansetron (ZOFRAN) injection 4 mg (COMPLETED) 4 mg, Intravenous, Once, 1 dose, On Thu10/10/24 at 0230, IV push over 2-5 minutes. 0247 (Given - Provid er: Maggie Nicole, JENNIFER) documented in this encounter Additional Health Concerns Assessment Noted Time PHQ-9 Depression Total Score: 16 025 8:01 AM WATER CHASER documented as of this encounter Care Teams [employer] Tire Repairer Relationship Specialty Start Date End Date Lucy Phillips PA-C [address] [address] PCP - General PHYSICIAN PROSTHETIST 05/21/23 documented as of this encounter
--- OUTSIDE RECORDS SUMMARY | 2024-10-11 00:56 | XMS_ITS | Encounter Summary ---
Author Organization [facility] Address [address] [place] [address] Care Team Providers Care Electrician Supervisor Substation Name Role Phone Bhakti Weldon Primary Care Provider [phone] Yomaira VegaP- Primary Care Provider + Lucy Phillips-C Primary Care Provider [phone] Encounter Details Date Type Department Care Team (Late st Contact Info) Description 10/08/2021 [employer] Message Enc [facility] Group Multispecialty Care - [facility] 3 [facility], [address] [place] [phone] Melissa Escalante APRN 3 [facility] [address] [place], [place] [id number] PT Social History Tobacco Use Types Packs/Day Years [...] CDT Travel History Travel Start Travel End [place] 10/02/2024 10/10/2024 COVID-19 Exposure Response Date Recorded In the last 10 days, have yo u been in contact with someone who was confirmed or suspected to have Coronavirus/COVID-19? No / Unsure 10/10/2021 8:48 AM PARTS COUNTERMAN documented as of this encounter Progress Notes * Mylene Vicente MA - 10/09/2021 8:01 AM CST Melissa do you know how many visits of PT [facility] needs a patient to have before they cover an MRI? S COUNTERMAN documented in this encounter Plan of Treatment Upcoming Encounters Date Type Department Care Team (Late st Contact Info) Description 11/22/2024 7:40 AM CDT Office Visit [facility] Medical Group Family & Internal Medicine - [place] [address] [place] [address] [place] [address] [place] [address] 09/01/2025 9:15 AM PARTS COUNTERMAN [facility] [address] [place] [phone] Prasad Ambrosio MD [address] [address] documented as of this encounter Visit Diagnoses Not on filedocumented in this encounter Additional Health Concerns Assessment Noted Time PHQ-9 Depression Total Score: 0 05/01/20 21 2:49 PM CDT documented as of this encounter Care Teams Electrician Supervisor Substation Relationship Specialty Start Date End Date Bhakti Weldon PA PCP - General PHYSICIAN FURNACE CONVERTER 01/22/19 11/10/22 [facility] PCP - General Nurse Practitioner Family 11/11/2204/25 Lucy Phillips PA-C [address] [place] [address] PCP - General PHYSICIAN FURNACE CONVERTER 05/21/23 documented as of this encounter
--- OUTSIDE RECORDS SUMMARY | 2024-10-11 00:56 | XMS_ITS | Encounter Summary ---
Author Organization [facility] Address [address] [place] [address] Care Team Providers Care Ladle Handler Name Role Phone Yomaira Vega- Primary Care Provider + Lucy Phillips PA-C Primary Care Provider [phone] Encounter Details Date Type Department Care Team (Late st Contact Info) Description 12/18/2022 [employer] Message Enc [facility] Medical Group Orthopedic & Sports Medicine - [place] [address] [place], [place] [phone] Memo Amor MD [address] [place], [place] [phone] Surgery scheduling Social History Tobacco Use Types Packs/Day Years [...] Travel History Travel Start Travel End [facility] [place] 10/02/2024 10/10/2024 documented as of this encounter Functional Status * RETIRED Are you deaf or do you have serious difficulty hearing Answer Date of Assessment Author Status No 10/01/2022 1:55 PM LATHE SCALPER OPERATOR Activ e * RETIRED Are you blind or do you have serious difficulty seeing, even when wearing glasses? Answer Date of Assessment Author Status No 10/01/2022 1:55 PM LATHE SCALPER OPERATOR Activ e * Do you have serious difficulty walking or climbing stairs? Answer Date of Assessment Author Status No 10/01/2022 1:55 PM Wlila Colbert RN Active * Do you have [...] Description 11/22/2024 7:40 AM CDT Office Visit [facility] Medical Group Family & Internal Medicine [facility] [address] [place] [address] [place] [address] [place], [place] [phone] 09/01/2025 9:15 AM LATHE SCALPER OPERATOR [facility] [address] [place] [phone] Prasad Ambrosio MD [facility] [address] [place] [address] documented as of this encounter Visit Diagnoses Not on filedocumented in this encounter Additional Health Concerns Assessment Noted Time PHQ-9 Depression Total Score: 0 05/01/20 21 2:49 PM CDT documented as of this encounter Care Teams Ladle Handler Relationship Specialty Start Date End Date Yomaira Vega FNP- PCP - General Nurse Practitioner Family 11/11/2204/25 Lucy Phillips, PAChandniC [address] [address] PCP - General PHYSICIAN INSULATION BOARD COATER OPERATOR 05/21/23 documented as of this encounter
--- OUTSIDE RECORDS SUMMARY | 2024-10-11 00:57 | XMS_ITS | Encounter Summary ---
Author Organization [facility] Address [address] [place] [address] Care Team Providers Care Pathology Laboratory Aide Name Role Phone Yomaira Vega-BC Primary Care Provider + Lucy Phillips PA-C Primary Care Provider [phone] Encounter Details Date Type Department Care Team (Late st Contact Info) Description 02/09/2023 Kaleio Message Enc [facility] Medical Group Orthopedic & Sports Medicine - [place] [address] [place], [facility] Provider surgery Social History Tobacco Use Types Packs/Day Years [...] CDT Travel History Travel Start Travel End [place] 10/02/2024 10/10/2024 COVID-19 Exposure Response Date [...] Assessment Author Status No 10/01/2022 1:55 PM CORK COMPOUNDER Activ e * RETIRED Are you blind or do you have serious difficulty seeing, even when wearing glasses? Answer Date of Assessment Author Status No 10/01/2022 1:55 PM CORK COMPOUNDER Activ e * Do you have serious [...] Description 11/22/2024 7:40 AM CDT Office Visit [facility] Medical Group Family & Internal Medicine - [place] [address] [place] [address] [place] [address] [place] [address] 09/01/2025 9:15 AM CORK COMPOUNDER Office Visit [facility] [address] [place] [address] Prasad Ambrosio MD [facility] [address] [place] [address] documented as of this encounter Visit Diagnoses Not on filedocumented in this encounter Additional Health Concerns Assessment Noted Time PHQ-9 Depression Total Score: 13 023 3:13 PM CDT documented as of this encounter Care Teams Pathology Laboratory Aide Relationship Specialty Start Date End Date [facility] PCP - General Nurse Practitioner Family 11/11/2204/25 Lucy Phillips, PAChandniC [address] [facility] [address] [place] [address] PCP - General PHYSICIAN STAVE INSPECTOR 05/21/23 documented as of this encounter
--- OUTSIDE RECORDS SUMMARY | 2024-10-11 00:57 | XMS_ITS | Encounter Summary ---
Author Organization [facility] - [facility] Address [address] [place] [address] Care Team Providers Care Mold Injector Name Role Phone Yomaira Vega- Primary Care Provider + Lucy Phillips PA-C Primary Care Provider [phone] Encounter Details Date Type Department Care Team (Late st Contact Info) Description 05/18/2023 [employer] Message Enc [facility] Medical Group Multispecialty Care - [facility] [address] [facility], [address] [place] [phone] Radha Pantoja NP 3 [facility] [address] [place] [address] appointment Social History Tobacco Use Types Packs/Day Years [...] CDT Travel History Travel Start Travel End [facility] 10/02/2024 10/10/2024 documented as of this encounter Functional Status * RETIRED Are you deaf or do you have serious difficulty hearing Answer Date of Assessment Author Status No 10/01/2022 1:55 PM FIRE INFORMATION OFFICER Activ e * RETIRED Are you blind or do you have serious difficulty seeing, even when wearing glasses? Answer Date of Assessment Author Status No 10/01/2022 1:55 PM FIRE INFORMATION OFFICER Activ e * Do you have serious [...] Description 11/22/2024 7:40 AM CDT Office Visit [facility] Medical Group Family & Internal Medicine [facility] [address] [place] [address] [place] [address] [place], [place] [phone] 09/01/2025 9:15 AM FIRE INFORMATION OFFICER Office Visit [facility] [address] [place] [address] Prasad Ambrosio MD [facility] [address] [place] [address] documented as of this encounter Visit Diagnoses Not on filedocumented in this encounter Additional Health Concerns Assessment Noted Time PHQ-9 Depression Total Score: 13 023 3:13 PM CDT documented as of this encounter Care Teams Mold Injector Relationship Specialty Start Date End Date Yomaira Vega FNP-BC PCP - General Nurse Practitioner Family 11/11/2204/25 Lucy Phillips [facility]-C [address] [facility] [address] [place] [address] PCP - General PHYSICIAN SALES AND SERVICE CONSULTANT 05/21/23 documented as of this encounter
--- OUTSIDE RECORDS SUMMARY | 2024-10-11 00:57 | XMS_ITS | Encounter Summary ---
Author Organization [facility] - [facility] Address [address] [place] [address] Care Team Providers Care Scientific Software Engineer Name Role Phone Lucy Phillips PA-C Primary Care Provider [phone] Encounter Details Date Type Department Care Team (Late st Contact Info) Description 08/21/2023 [employer] Message Enc [facility] Medical Group Family & Internal Medicine [address] [address] [facility] Provider MRI Social History Tobacco Use Types [...] Date Recorded Patient Health Questionnaire-2 Score 0 08/07/2023 Comments No Sex and Gender Information Value Date Recorded Sex Assigned at Female 05/04/2019 4:40 PM CDT Legal Sex Female 9:06 PM CDT Gender Identity Female 05/04/2019 4:40 PM CDT Sexual Orientation Straight 05/04/2019 4: 40 PM CDT Travel History Travel Start Travel End [facility] 10/02/2024 10/10/2024 documented as of this encounter Functional Status * RETIRED Are you deaf or do you have serious difficulty hearing Answer Date of Assessment Author Status No 10/01/2022 1:55 PM ROSE GRADING SUPERVISOR Activ e * RETIRED Are you blind or do you have serious difficulty seeing, even when wearing glasses? Answer Date of Assessment Author Status No 10/01/2022 1:55 PM ROSE GRADING SUPERVISOR Activ e * Do you have serious difficulty walking or climbing stairs? Answer Date of Assessment Author Status No 10/01/2022 1:55 PM Willa oClbert RN Active * Do you have difficulty [...] Description 11/22/2024 7:40 AM CDT Office Visit [facility] Medical Group Family & Internal Medicine - [place] [address] [place] [address] [place] [address] [place], [place] [phone] 09/01/2025 9:15 AM ROSE GRADING SUPERVISOR Office Visit [facility] [address] [place] [address] Prasad Ambrosio MD [address] [address] documented as of this encounter Visit Diagnoses Not on filedocumented in this encounter Additional Health Concerns Assessment Noted Time PHQ-9 Depression Total Score: 13 01/13/ 023 3:13 PM CDT documented as of this encounter Care Teams Scientific Software Engineer Relationship Specialty Start Date End Date Lucy Phillips PA-C [address] [place] [address] PCP - General PHYSICIAN RESOURCE DEVELOPMENT MANAGER 05/21/23 documented as of this encounter
--- OUTSIDE RECORDS SUMMARY | 2024-10-11 00:57 | XMS_ITS | Encounter Summary ---
Author Organization [facility] Address [facility] [place] [address] Care Team Providers Care Optician Apprentice Name Role Phone Yomaira Vega- Primary Care Provider + Lucy Phillips PA-C Primary Care Provider [phone] Encounter Details Date Type Department Care Team (Late st Contact Info) Description 05/18/2023 [employer] Message [facility] [phone] [place] [phone] Coretta Vargas NP appointment Social History Tobacco Use Types Packs/Day [...] CDT Travel History Travel Start Travel End [place] 10/02/2024 10/10/2024 documented as of this encounter Functional Status * RETIRED Are you deaf or do you have serious difficulty hearing Answer Date of Assessment Author Status No 10/01/2022 1:55 PM PERINATAL SPECIALIST Activ e * RETIRED Are you blind or do you have serious difficulty seeing, even when wearing glasses? Answer Date of Assessment Author Status No 10/01/2022 1:55 PM PERINATAL SPECIALIST Activ e * Do you have serious [...] documented in this encounter Progress Notes * Coretta Vargas NP - 05/19/2023 9:06 AM CDT 230 documented in this encounter Plan of Treatment Upcoming Encounters Date Type Department Care Team (Late st Contact Info) Description 11/22/2024 7:40 AM CDT Office Visit [facility] Medical Group Family & Internal Medicine - [place] [address] [place] [address] [place] [address] [place] [address] 09/01/2025 9:15 AM PERINATAL SPECIALIST Office Visit [facility] [address] [place] [address] Prasad Ambrosio MD [place] [address] [place] [address] documented as of this encounter Visit Diagnoses Not on filedocumented in this encounter Additional Health Concerns Assessment Noted Time PHQ-9 Depression Total Score: 13 023 3:13 PM CDT documented as of this encounter Care Teams Optician Apprentice Relationship Specialty Start Date End Date Yomaira Vega FNP- PCP - General Nurse Practitioner Family 11/11/2204/25 Lucy Phillips PA-C [address] [facility] [address] [place] [address] PCP - General PHYSICIAN CUT OFF MACHINE UNLOADER 05/21/23 documented as of this encounter
--- OUTSIDE RECORDS SUMMARY | 2024-10-11 00:57 | XMS_ITS | Encounter Summary ---
Author Organization [facility] - [facility] Address [address] [place] [address] Care Team Providers Care Log Skidder Name Role Phone Lucy Phillips PA-C Primary Care Provider [phone] Encounter Details Date Type Department Care Team (Late st Contact Info) Description 07/10/2023 [email or web address] Message Enc [facility] Medical Group Family & Internal Medicine [address] [address] [facility] Provider steroid Social History Tobacco Use Types Packs/Day Years [...] CDT Travel History Travel Start Travel End [facility] 10/02/2024 10/10/2024 documented as of this encounter Functional Status * RETIRED Are you deaf or do you have serious difficulty hearing Answer Date of Assessment Author Status No 10/01/2022 1:55 PM HERB GROWER Activ e * RETIRED Are you blind or do you have serious difficulty seeing, even when wearing glasses? Answer Date of Assessment Author Status No 10/01/2022 1:55 PM HERB GROWER Activ e * Do you have serious [...] Description 11/22/2024 7:40 AM CDT Office Visit [facility] Medical Group Family & Internal Medicine - [place] [address] [place] [address] [place] [address] [place], [place] [phone] 09/01/2025 9:15 AM HERB GROWER Office Visit [facility] [address] [place] [address] Prasad Ambrosio MD [address] [address] documented as of this encounter Visit Diagnoses Not on filedocumented in this encounter Additional Health Concerns Assessment Noted Time PHQ-9 Depression Total Score: 13 01/13/ 023 3:13 PM CDT documented as of this encounter Care Teams Log Skidder Relationship Specialty Start Date End Date Lucy Phillips PA-C [address] [place] [address] PCP - General PHYSICIAN SUPPLY SERVICE WORKER 05/21/23 documented as of this encounter
[2024-10-11 10:33] LABS: Add Urine Microscopic? YES; Appearance Urine Clear (Clear); Bacteria Urine Rare /hpf; Bilirubin Urine Negative (Negative); Blood Urine Trace (Negative); Color Urine Yellow (Yellow); Glucose Urine UA Negative (Negative); Ketones Urine Negative (Negative); Leukocyte Esterase Ur 2+ LEU/UL (Negative); Nitrate Urine Negative (Negative); Non Pathogenic Casts 0-2; Protein Urine Negative (Negative); RBC Urine 0-2 /hpf (0-2); Squamous Epithelial Cell Urine Occasional /hpf (Few); Urobilinogen Urine 0.2 mg/dL (<2.0); pH Urine 5.5 (5.0-9.0)
[2024-10-11] MEDS: LACTATED RINGERS 1,000 ML 30 ML IV CONT (10:40)
--- NOTE | 2024-10-11 11:20 | P.HP_ITS ---
H&P: HPI History of Present Illness Date/Time: 10/11/24 11:20 Chief Complaint: Left proximal ureteral stone 6-7 mm Narrative: [age]-year-old female with a 6-7 mm left proximal ureteral stone. Now here for cystoscopy, left retrograde, left ureteroscopy with stone extraction, possible laser, stent placement Review of Systems Review of Systems: All systems reviewed & are unremarkable except as noted in HPI and below PMFSH Past Medical History Medical History PVNS (pigmented villonodular synovitis) Obesity Asthma RICA (obstructive sleep apnea) Papillary thyroid carcinoma Family History Family History Mother Heart disease Arthritis Hypertension Father Gout Asthma Cancer of kidney Diabetes mellitus Heart disease Hypertension CKD (chronic kidney disease) Sibling Asthma Sibling No problems noted. Social History Social History Smoking status: Never smoker Alcohol intake: current Living arrangements: with family Spiritual care concerns: No Meds Home Medications and Allergies Home Medications ?Medication ?Instructions ?Recorded ?Confirmed ?Type Lactobacillus acidophilus 10 100 mmu cells PO DAILY 10/10/24 10/10/24 History billion cell capsule (Revitaflor) albuterol 90 mcg-budesonide 80 2 inh inhalation QID PRN shortness 10/10/24 10/10/24 History mcg/actuation HFA aerosol inhaler of breath (Airsupra) cetirizine 10 mg tablet (24Hour 10 mg PO DAILY 10/10/24 10/10/24 History Allergy) cranberry 500 mg capsule 500 mg PO DAILY 10/10/24 10/10/24 History d-mannose 500 mg capsule (AZO 500 mg PO DAILY 10/10/24 10/10/24 History D-Mannose) fluticasone 500 mcg-salmeterol 50 1 inh inhalation Q12H 10/10/24 10/10/24 History mcg/dose blistr powdr for inhalation (Wixela Inhub) ketorolac 10 mg tablet 10 mg PO Q6H PRN pain 10/10/24 10/10/24 History levothyroxine 150 mcg tablet 150 mcg PO DAILY 10/10/24 10/10/24 History montelukast 10 mg tablet 10 mg PO DAILY 10/10/24 10/10/24 History (Singulair) multivitamin (Daily Multi-Vitamin 1 tablet PO DAILY 10/10/24 10/10/24 History tablet) norethindrone 1.5 mg-ethinyl 1 tablet PO DAILY 10/10/24 10/10/24 History estradiol 30 mcg(21)/iron 75 mg(7) tablet (Aurovela Fe 1.5/30 (28)) ondansetron 4 mg disintegrating 4 mg PO TID PRN nausea and vomiting 10/10/24 10/10/24 History tablet Allergies Allergy/AdvReac Type Severity Reaction Status Date / Time No Known Allergies Allergy Verified 10/11/24 10:44 Vital Signs Vital Signs - 24 hr 10/11/24 10:46 Temperature 36.1 C L Pulse Rate 72 Respiratory Rate 18 Blood Pressure 133/65 Pulse Oximetry 100 Oxygen Delivery Room Air Exam Const: General: cooperative Resp: Effort & Inspection: normal respiratory effort Cardio: Rate: regular rate Rhythm: regular rhythm H&P: Results Labs Labs: Urine 10/11/24 Range/Units 10:15 Urine Color Yellow (Yellow) Urine Appearance Clear (Clear) Urine pH 5.5 (5.0-9.0) Ur Specific [place] 1.010 (1.001-1.035) Urine Protein Negative (Negative) mg/dL Urine Glucose (UA) Negative (Negative) mg/dL Assessment and Plan Assessment and plan (1) Left ureteral calculus: Code(s): N20.1 - Calculus of ureter Status: Acute Assessment and Plan: Proceed with cystoscopy, left retrograde pyelogram, left ureteroscopy with stone extraction, possible laser, stent placement
--- NOTE | 2024-10-11 11:22 | WPDHPUPDATE1 ---
History and Physical Update Update Date/Time: 10/11/24 11:22 History and Physical has been reviewed, including an updated exam of the patient. There are NO changes in the patient's condition. Risks, benefits, and alternatives have been discussed and questions answered. Patient agrees to proceed with procedure.
--- NOTE | 2024-10-11 11:56 | WPDANESEPPF ---
Anes - Initial Pre Proc Eval Procedure: Operation Date: 10/11/24 12:30 Proposed Procedures p Cystoscopy Left Ureteroscopy, Holmium Laser Lithotripsy Left Stone Extraction, Possible Left Retrograde Pyelogram, Possible Left Stent Placement - West Oconnor MD Date/Time: 10/11/24 11:56 Surgeon: West Oconnor MD Pre Op Diagnosis: Lt Kidney Stone Patient Data Age: 39 Gender: F Height: 1.57 m Weight: 134.5 kg Last Vital Signs Temp 97.0 F L 10/11/24 10:46 Pulse 72 10/11/24 10:46 Resp 18 10/11/24 10:46 BP 133/65 10/11/24 10:46 Pulse Ox 100 10/11/24 10:46 O2 Del Method Room Air 10/11/24 10:46 Allergies Allergy/AdvReac Type Severity Reaction Status Date / Time No Known Allergies Allergy Verified 10/11/24 10:44 Home Medications ?Medication ?Instructions ?Recorded ?Confirmed ?Type Lactobacillus acidophilus 10 100 mmu cells PO DAILY 10/10/24 10/10/24 History billion cell capsule (Revitaflor) albuterol 90 mcg-budesonide 80 2 inh inhalation QID PRN shortness 10/10/24 10/10/24 History mcg/actuation HFA aerosol inhaler of breath (Airsupra) cetirizine 10 mg tablet (24Hour 10 mg PO DAILY 10/10/24 10/10/24 History Allergy) cranberry 500 mg capsule 500 mg PO DAILY 10/10/24 10/10/24 History d-mannose 500 mg capsule (AZO 500 mg PO DAILY 10/10/24 10/10/24 History D-Mannose) fluticasone 500 mcg-salmeterol 50 1 inh inhalation Q12H 10/10/24 10/10/24 History mcg/dose blistr powdr for inhalation (Wixela Inhub) ketorolac 10 mg tablet 10 mg PO Q6H PRN pain 10/10/24 10/10/24 History levothyroxine 150 mcg tablet 150 mcg PO DAILY 10/10/24 10/10/24 History montelukast 10 mg tablet 10 mg PO DAILY 10/10/24 10/10/24 History (Singulair) multivitamin (Daily Multi-Vitamin 1 tablet PO DAILY 10/10/24 10/10/24 History tablet) norethindrone 1.5 mg-ethinyl 1 tablet PO DAILY 10/10/24 10/10/24 History estradiol 30 mcg(21)/iron 75 mg(7) tablet ([place]a Fe 1.5/30 (28)) ondansetron 4 mg disintegrating 4 mg PO TID PRN nausea and vomiting 10/10/24 10/10/24 History tablet Laboratory Tests 10/11/24 10:15 Urine Color Yellow (Yellow) Urine Appearance Clear (Clear) Urine pH 5.5 (5.0-9.0) Ur Specific [place] 1.010 (1.001-1.035) Urine Protein Negative mg/dL (Negative) Urine Glucose (UA) Negative mg/dL (Negative) Urine Ketones Negative mg/dL (Negative) Ur Blood (Man) Trace (Negative) Urine Nitrate Negative (Negative) Urine Bilirubin Negative (Negative) Urine Urobilinogen 0.2 mg/dL (<2.0) Leukocyte Esterase Rfl 2+ H ELIU/UL (Negative) Urine RBC 0-2 /hpf (0-2) Urine WBC 11-20 H /hpf (0-3) Ur Squamous Epith Cells Occasional /hpf (Few) Urine Bacteria Rare /hpf Urine Casts 0-2 Patient hx anesthesia problems: post op nausea/vomiting Family hx anesthesia problems: none Results Review: All pre-operative results and documents have been reviewed as part of the pre-operative evaluation. [facility], [facility] Past Medical History Medical History PVNS (pigmented villonodular synovitis) Obesity Asthma RICA (obstructive sleep apnea) Papillary thyroid carcinoma Family History Family History Mother Heart disease Arthritis Hypertension Father Gout Asthma Cancer of kidney Diabetes mellitus Heart disease Hypertension CKD (chronic kidney disease) Sibling Asthma Sibling No problems noted. Social History Social History Smoking status: Never smoker Alcohol intake: current Living arrangements: with family Spiritual care concerns: No Anes - Eval Final PreProcedure Day of Procedure 10/11/24 11:56 Patient weight: super morbidly obese Heart: regular rate and rhythm Lungs: clear to auscultation Airway: Mallampati scale class II Neurological: alert and oriented Last oral intake: >/= 8 hours ASA classification: III Emergent: no Anesthetic plan: proceed Anesthesia type and monitoring: general LMA and standard monitoring Results Review: All pre-operative results and documents have been reviewed as part of the pre-operative evaluation. Informed Consent: The patient's anesthetic plan and its attendant risks and benefits were discussed with the patient/family/POA. Questions were solicited and answers provided to the satisfaction of the patient/family/POA.
[2024-10-11] MEDS: SCOPOLAMINE 1 MG PATCH 1 PATCH TRANSDERM (12:00)
[2024-10-11] MEDS: ceFAZolin 3 GM/D5W 100 ML 100 ML IVPB (12:05)
--- NOTE | 2024-10-11 12:40 | P.OP_ITS ---
Procedure Note - Detailed Date of Procedure 10/11/24 Pre-op Diagnosis Lt Kidney Stone Post-op Diagnosis Same Procedure Performed Cystoscopy, left retrograde pyelogram, left ureteroscopy with holmium laser, stent placement 4.8 [place] contour Surgeon West Oconnor MD Anesthesia General Description of Procedure Patient was taken the operative suite correctly identified. Once anesthesia was obtained she was placed in dorsal lithotomy position prepped draped usual sterile fashion. Twenty-two [place] scope was inserted the bladder. There were no tumors. The left ureteral orifice was cannulated with a guidewire. I dilated the orifice with an 8/10 dilator. Rigid ureteral scope was inserted into the orifice. There was nothing in the distal or mid ureter. Mini flexible ureteral scope was then inserted. The stone had caused some edema in the proximal ureter but appears to flush back into the kidney. Inspection of the kidney reveals the stone being the middle pole calyx. Using a 242 micron fiber we lasered and dusted the stone. There were no fragments substantial enough to retrieve. Pyelogram was then performed to confirm placement of the stent. 4.8 [place] contour stent was then placed with the proximal end coiled in the renal pelvis and the distal end in the bladder. Bladder was drained. 2% viscous lidocaine was inserted into the urethra and patient was taken recovery stable condition. She will follow-up in a week for stent. This completes dictation. Please send a copy of op to my office. Estimated Blood Loss 0 Drains Yes Packing No Pathology None sent Complications No immediate complications Condition Stable Disposition PACU
[2024-10-11] MEDS: KETOROLAC 15 MG/ML VIAL (*BKC) IV PUSH (12:41)
[2024-10-11] MEDS: LIDOCAINE 2% GEL UROJET 10 ML PKG MUCOUS MEM (12:47)
[2024-10-11] MEDS: ONDANSETRON INJ 4 MG/2 ML VIAL IV PUSH (13:10)
[2024-10-11] MEDS: fentaNYL CITRATE INJ (*CRX) 100 MCG/2 ML VIAL 25 MCG IV PUSH (13:38)
== END 2024-10-11 14:55 | disposition home or self-care (01) ==
PROVIDERS: PCP Physician Assistant; Visit Provider Urology
PROC: (CPT 52352; principal; 2024-10-11 12:30)
DX: N20.1 Calculus of ureter (principal); J45.909 Unspecified asthma, uncomplicated; G47.33 Obstructive sleep apnea (adult) (pediatric); E66.01 Morbid (severe) obesity due to excess calories; Z68.43 Body mass index [BMI] 50.0-59.9, adult; Z79.51 Long term (current) use of inhaled steroids; Z85.850 Personal history of malignant neoplasm of thyroid; Z80.51 Family history of malignant neoplasm of kidney; Z82.49 Family history of ischemic heart disease and other diseases of the circulatory system
CPT/HCPCS: 52332; 74018; 74420; 81001; 87086; A9270; J0690; J1100; J1885; J2003; J2250; J2405; J2704; J3010; J7120